=== PATIENT | female | born 1965 | race Caucasian/White ===

== ENCOUNTER 2019-04-12 10:11 | Day surgery (SDC) | payer MEDICAID, SELFPAY ==
[2019-04-11 10:18] VITALS: BMI 41.9
--- NOTE | 2019-04-12 11:04 | ANES.PREANES ---
Pre-Anesthetic Assessment Pre-Anesthetic Assessment: Height/Weight: Height 1.68 m Weight 117.934 kg Proposed Procedure: Operation Date: 04/12/19 11:50 Proposed Procedures p Breast Biopsy(Left) - Aram Montenegro MD Last intake: Intake Last Liquid Date 04/11/19 Last Liquid Time 22:45 Last Solid Date 04/11/19 Last Solid Time 22:45 Social: Social History: Tobacco (quit 25 year ago) and No alcohol Exam: Pre-Anes Outpt Exam: alert, oriented x 3, clear to auscultation bilaterally and regular rate & rhythm Airway: Submandibular: WNL Cervical ROM: WNL MP: 2 Additional comments: teeth ok Pulmonary: Pulmonary: None reported CV/HEM: CV/HEM: None reported : : None reported Hepatic: Hepatic: None reported GI: GI: GERD (controlled) Metabolic: Metabolic: Morbid obesity Musc/skel: Musc/skel: None reported Neuropsych: Neuropsych: Anxiety and Depression Anesthetic Plan: ASA status: II Anesthesia: Anesthesia Evaluation and MAC Risk of > 500 ml blood loss (7ml/kg in children): No PFSH Anesthesia PFSH: Medical History (Updated 04/12/19 @ 11:04 by Bhargav Ashton MD) Anxiety (Acute) Bronchitis (Acute) Depression (Acute) Gastroesophageal reflux (Acute) Family History Other Family history of CVA Family history of breast cancer Family history of cholelithiasis Social History Smoking and tobacco status: former smoker Quit status (tobacco): has quit using tobacco Substance/Drug Use: never Data Anesthesia Cardiac Studies: No Data to Display
[2019-04-12] MEDS: sodium chloride 0.9% 1,000 ML 30 ML IV (11:21)
[2019-04-12] MEDS: neomycin-poly-bacitracin oint 28 gm 1 APPLIC TOPICAL (11:45)
--- NOTE | 2019-04-12 11:46 | P.OP_ITS ---
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 Post-op diagnosis: same Procedure Done: Left breast incisional biopsy. Specimens removed/disposition: Left breast parenchyma with overlying skin. Surgeon: Aram Montenegro Anesthesia: MAC Estimated blood loss (mL): 5 Complications: None. Operative Report: Procedure: The patient was brought to the operating room and was placed in a supine position on the operating room table. A monitored anesthetic was induced. The left breast was prepped and draped in a sterile fashion. A transverse ellipse of skin with some overlying papules was then taken with a scalpel. Some of the underlying breast parenchyma was included. Cautery was used to maintain hemostasis. The wound was then irrigated. The skin was reapproximated using multiple interrupted simple sutures of 2-0 and 3-0 nylon. Some triple antibiotic ointment was placed over the wound and a sterile dressing followed. The patient was taken to the outpatient recovery area in stable condition postoperatively. Coding Level of Care Code Acute Desulphuring Operator for Boo Pritchett
[2019-04-12 11:54] VITALS: BP 147/80; PULSE 103; RESP 16; TEMP 36.5; O2SAT 94
[2019-04-12 12:22] VITALS: BP 149/86; PULSE 95; RESP 18; O2SAT 97
== END 2019-04-12 12:30 | disposition home or self-care (01) ==
PROVIDERS: Family Provider Family Medicine; Visit Provider Surgery
PROC: (CPT 19101; principal; 2019-04-12 11:40)
DX: C50.912 Malignant neoplasm of unspecified site of left female breast (principal); Z87.891 Personal history of nicotine dependence; F32.9 Major depressive disorder, single episode, unspecified; F41.9 Anxiety disorder, unspecified; K21.9 Gastro-esophageal reflux disease without esophagitis
CPT/HCPCS: 19101; 88305; 88361; 88374; 99221; J0690; J2001; J2704; J3010; J3490; J7030

== ENCOUNTER 2019-04-30 12:13 | Outpatient (CLI) | payer MEDICAID, SELFPAY ==
--- NOTE | 2019-05-02 16:02 | ONC CON_ITS ---
Dr. Grijalva New Patient Note Patient: Samir Gerard Unit #: [id number]: 1965 Dicatated By: Annie Grijalva M.D.Date of Visit: Apr 30, 2019 Onc MED New Patient/Consult Referring Physician: Dr. Aram Montenegro M.D. History of Present Illness: Ms. Samir Gerard, is a 53-year-old female with history of left breast mass underwent biopsy about 20 years ago and was negative, showed fibrous tissue only. Since then no more follow-up mammograms until about 2 months ago when she went to emergency room with left breast 'inflammation'and progressive swelling and left axillary lymphadenopathy at that time she was referred to oncology but did not follow through but continue to follow with primary care eventually on 04/10/2019 she was referred to surgery, Dr. Montenegro evaluated her and patient underwent left breast biopsy on 04/12/2019 which showed invasive carcinoma high-grade with dermal lymphatics involvement and perineural invasion identified also involvement of dermis e.g. diagnosed with inflammatory carcinoma of left breast HER-2/eduar 3+ positive, ER less than 1% VT less than 1% both were negative Ki-67 56 which is high..Complaining of clear fluid oozing from the left breast skin and nipple and left axillary fullness and portal left breast is swollen with overlying skin changes including under left axilla Family history significant for mother with breast cancer and maternal aunt with breast cancer patient started having. At age 10 and has no pregnancies. Denies any fever chills denies any nausea vomiting denies any headaches blurred vision double vision but chronic discomfort/pain in her left upper back and left axilla. And whole left breast is swollen with overlying skin changes with off-and-on serosanguineous discharge from the nipple and skin. Past Medical History: Ms. Gerard's medical history consists of anxiety, depression, and gastroesophageal reflux disease. Past Surgical History: Ms. Gerard's surgical/procedural history consists of left breast excisional biopsy in 2019 and left breast biopsy in 1999. Medications: Ibuprofen 2 - 3 Tablet (of 200 mg) Oral PRN, NexIUM 1 Capsule (of 20 mg) Capsule Delayed Release Oral daily Allergies: No Known Allergies. 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 Ms. Gerard has never smoked. She is a former drinker. Ms. Gerard reports the following support systems: lives alone, lives in own house, supportive family/friends willing to assist with needs, and adequate transportation available for expected visits. Her diet consists of regular meals. She indicates her activity level as: regular exercise. Family History: Ms. Gerard's mother at age 75: breast cancer. Ms. Gerard's father is alive: lung cancer. Review Of Symptoms: Constitutional - Appetite is fair and weight is decreasing. No fever, chills. Positive for hot flashes and night sweats. Energy level is fair, ENMT - No sinus congestion/drainage. No mouth sores. No sore throat. Occasional difficulty swallowing, Hematologic/Lymphatic - No abnormal bruising or bleeding, Respiratory - Positive for shortness of breath. No cough. No pleuritic pain or hemoptysis, Cardiovascular - No angina pain. No palpitations, Gastrointestinal - No nausea or vomiting. Positive for heartburn, no acid reflux. No diarrhea or constipation. No blood in the stool or black stools, Genitourinary (F) - No dysuria or hematuria. Positive for urinary frequency. No urgency or incontinence, Musculoskeletal - Positive for joint pain, Neurologic - No headache or dizziness. No numbness/paresthesias or other focal neurologic symptoms, Psychiatric - Positive for anxiety and depression. Vital Signs: Performed on Apr 30, 2019 13:32: 3, 44.73 (HIGH), 2.24 sq.m, 65.00 in, 97 %, 100 /min, 26 /min, 148/102 mm(hg) (HIGH), 98.1 F (LOW), and 268.8 lbs (HIGH). Performance Status: 0 - Fully active, able to carry on all predisease activities without restrictions. (ECOG) Physical Examination: ENMT - No oral exudates, ulcers, masses, thrush or mucositis. Oropharynx clear. Tongue normal, Respiratory - Lungs are clear to auscultation without rhonchi or wheezing, Cardiovascular - Regular rate and rhythm of heart, Breasts - Left breast, shows extensive overlying skin changes and nipple retraction and swelling consistent with locally advanced inflammatory breast cancer along with left axillary lymphadenopathy, Abdomen - Non-tender, non-distended, . Good bowel sounds. No guarding or rebound tenderness. No pulsatile masses, Extremities - no edema. Lab/Imaging: Most recent lab results are not available for this patient. 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 metastatic disease. At this point we'll consider CT PET scan to complete staging workup and as she has HER-2/eduar positive disease so we'll consider echocardiogram to assess cardiac status and also request Dr. Montenegro to place Port-A-Cath placement to facilitate chemotherapy. If CT PET scan shows localized disease then will consider dose dense Adriamycin Cytoxan followed by Herceptin/Taxol/perjeta , on the other hand if PET scan shows distance metastases then will consider systemic therapy with palliative intent. We will also check BRCA1 and 2 status. Patient return to clinic after CT PET scan with CBC CMP and for further discussion. Signed By: Annie Grijalva M.D. <<Signature on File>>
== END 2019-04-30 12:14 | disposition home or self-care (01) ==
LOC: ONCMED 12:16
PROVIDERS: Family Provider Family Medicine; Referring Provider Surgery; Visit Provider Internal Medicine Hematology & Oncology
DX: C50.812 Malignant neoplasm of overlapping sites of left female breast (principal); F41.8 Other specified anxiety disorders; K21.9 Gastro-esophageal reflux disease without esophagitis; F10.21 Alcohol dependence, in remission; R59.0 Localized enlarged lymph nodes; M54.6 Pain in thoracic spine; Z17.1 Estrogen receptor negative status [ER-]; Z80.3 Family history of malignant neoplasm of breast
CPT/HCPCS: 99205

== ENCOUNTER 2019-05-01 07:28 | Outpatient (CLI) | payer MEDICAID, SELFPAY ==
[2019-05-01 07:54] LABS: Miscellaneous Test See Scanned Lab Rpt
[2019-05-01 08:10] LABS: Basophils % 0.3 %; Eosinophils # 0.1 10^3/uL (0.0-0.8); Eosinophils % 1.1 %; Hematocrit 36.1 % (37.0-47.0); Hemoglobin 11.5 g/dL (11.5-15.3); Lymphocytes % 22.2 %; Mean Corpuscular HGB Conc 31.9 g/dL (30.0-36.0); Mean Corpuscular Hemoglobin 30.3 pg (28.0-34.0); Mean Corpuscular Volume 95.3 fL (81-99); Mean Platelet Volume 9.7 fL (7.4-10.4); Monocytes # 0.9 10^3/uL (0.2-0.9); Monocytes % 9.3 %; Neutrophils # 6.1 10^3/uL (1.8-7.7); Neutrophils % 66.8 %; Nucleated Red Blood Cells % 0 %; Platelet Count 370 10^3/cmm (130-400); Red Blood Count 3.79 10^6/uL (4.1-5.3); Red Cell Distribution Width 13.9 % (12.1-15.1); White Blood Count 9.2 10^3/uL (4.0-10.0)
[2019-05-01 08:23] LABS: Alanine Aminotransferase 29 U/L (0-33); Albumin Level 3.7 g/dL (3.5-5.2); Alkaline Phosphatase 78 IU/L (35-105); Anion Gap 13.4 (5-19); Aspartate Amino Transferase 38 U/L (0-32); Blood Urea Nitrogen 7 mg/dL (6-20); Calcium 9.1 mg/Dl (8.6-10.0); Carbon Dioxide 30 mmol/L (22-29); Chloride 98 mmol/L (98-107); Globulin 3.7 g/dL (1.3-4.6); Glomerular Filtration Rate 57.8 mL/min (90-130); Glucose 111 mg/dL (74-109); Potassium 3.4 mmol/L (3.5-5.1); Sodium 138 mmol/L (136-145); Total Bilirubin 0.3 mg/dL (0.15-1.2); Total Protein 7.4 g/dL (6.6-8.7)
== END 2019-05-01 07:29 | disposition home or self-care (01) ==
LOC: ONCMED 07:34
PROVIDERS: Family Provider Family Medicine; Visit Provider Internal Medicine Hematology & Oncology
DX: C50.812 Malignant neoplasm of overlapping sites of left female breast (principal)
CPT/HCPCS: 36415; 80053; 85025

== ENCOUNTER 2019-05-09 10:12 | Outpatient (CLI) | payer MEDICAID, SELFPAY ==
--- NOTE | 2019-05-09 11:00 | USCV_ITS ---
LisaandreaSamir Age: 53 Gender: F : 1965 Exam Date: 05/09/2019 10:37 Ordering Phys: Annie Grijalva MD Technologist: Madhavi Olguin Exam Location: [facility] – [place] Indication: SOB, BASELINE FOR CA TREATMENT BP: / HR: 78 Rhythm: Sinus Technical Quality: NO WINDOWS FOR EVAL MEASUREMENTS (Male / Female) Normal Values 2D ECHO LVOT Diameter 2.0 cm DOPPLER PV Peak Velocity 73.0 cm/s RV Acceleration Time 0.1 s RV Ejection Time 0.3 s RV AcT/ET 0.3 FINDINGS Left Ventricle Right Ventricle Right Atrium Left Atrium Mitral Valve Aortic Valve Tricuspid Valve Pulmonic Valve Pericardium Aorta CONCLUSIONS Please note that this is a suboptimal quality study which is limited #1 Perhaps normal left ventricle size and ejection fraction. Cannot comment on wall motion abnormality. Left ventricle ejection fraction possible 50-55%. #2 No pericardial effusion #3 Cannot compare it with prior exam. Kendall Ferreiar MD (Electronically Signed) Final Date: 09 May 2019 17:40 S
== END 2019-05-09 10:13 | disposition home or self-care (01) ==
LOC: US 10:15
PROVIDERS: Family Provider Nurse Practitioner Family; Visit Provider Internal Medicine Hematology & Oncology
DX: R06.02 Shortness of breath (principal); C50.912 Malignant neoplasm of unspecified site of left female breast
CPT/HCPCS: 93308

== ENCOUNTER 2019-05-16 06:00 | Outpatient (CLI) | payer SELFPAY | END 2019-05-16 06:01 | disposition home or self-care (01) | LOC: ONCMED 15:59 | PROVIDERS: Family Provider Nurse Practitioner Family; Visit Provider Internal Medicine Hematology & Oncology | DX: C50.812 Malignant neoplasm of overlapping sites of left female breast (principal); C77.8 Secondary and unspecified malignant neoplasm of lymph nodes of multiple regions; G89.3 Neoplasm related pain (acute) (chronic); Z17.1 Estrogen receptor negative status [ER-]; Z80.3 Family history of malignant neoplasm of breast | CPT/HCPCS: G0463 ==

== ENCOUNTER 2019-05-29 11:16 | Day surgery (SDC) | payer MEDICAID, SELFPAY ==
[2019-05-25 08:14] VITALS: BMI 44.1
--- NOTE | 2019-05-25 08:31 | ANES.PREANE2 ---
Pre-Anesthetic Assessment Pre-Anesthetic Assessment: Height/Weight: Height 1.65 m Weight 120.202 kg Preop Diagnosis: Left breast inflammatory cancer Proposed Procedure: Operation Date: 05/29/19 13:15 Proposed Procedures p Portacath Placement 82531 C50.912(Not Applicable) - Doug Roberson MD Social: Social History: No alcohol and No tobacco Exam: Pre-Anes Outpt Exam: alert, oriented x 3, clear to auscultation bilaterally and regular rate & rhythm Airway: Submandibular: WNL Cervical ROM: WNL MP: 2 History/ROS: No significant history except as noted Pulmonary: Pulmonary: None reported CV/HEM: CV/HEM: None reported : : None reported Hepatic: Hepatic: None reported GI: GI: GERD (occ) Metabolic: Metabolic: Morbid obesity Musc/skel: Musc/skel: None reported Neuropsych: Neuropsych: Anxiety and Depression Anesthetic Plan: ASA status: 3 Anesthesia: Anesthesia Evaluation and MAC Risk of > 500 ml blood loss (7ml/kg in children): No PFSH Anesthesia PFSH: Medical History Anxiety Breast cancer, left breast Bronchitis Depression Gastroesophageal reflux Surgical History History of breast biopsy (~03/2019) Family History Other Family history of CVA Family history of breast cancer Family history of cholelithiasis Social History Smoking and tobacco status: former smoker Quit status (tobacco): has quit using tobacco Second hand smoke exposure: No Alcohol intake: never Adopted: No Caregiver/support person: No Lives independently: No Household members: none Housing: House Marital status: Single service: No Current occupational status: employed Current occupational exposures/hazards: No Pets and animals: No History of recent travel: No Current gender identity: Female Melissa/Nondenominational: [employer] Special melissa needs: No Agree to transfusion: No Financial difficulty paying for basics: Decline to Answer Data Anesthesia Cardiac Studies: No Data to Display
--- NOTE | 2019-05-29 | SCC_ITS ---
Procedure Done: Right IJ Port-A-Cath placement PowerPort 10.0 seconds of fluoroscopic guidance, for a cumulative dose of 2.46 mGy, was provided to Dr. Roberson by the radiology department. C-arm images of the chest were saved for the patient's permanent record. [facility]
--- NOTE | 2019-05-29 11:22 | SC_ITS ---
WS: [id number] C-arm FL for CVA [id number] REASON FOR EXAM: Port-A-Cath placement FINDINGS: Port-A-Cath placement on the right side the tip is seen below the atrium in the inferior ve na cava. There is no pneumothorax seen. SC/C-arm FL for CVA [id number] IMPRESSION: Port-A-Cath insertion the tip is low in the upper inferior vena cava. Fluoroscopic time 10 seconds.
[2019-05-29 11:32] VITALS: BP 164/94; PULSE 94; RESP 16; TEMP 36.4; O2SAT 98
[2019-05-29] MEDS: sodium chloride 0.9% 1,000 ML 30 ML IV (11:47)
--- NOTE | 2019-05-29 13:24 | W.PM.OPSUD ---
Surgery/Procedure H&P Update DATE OF PROCEDURE: May 29, 2019 DATE H&P PERFORMED: 05/24/19 H&P UPDATE INFORMATION: H&P completed within last 30 days and No changes to prior documentation PREOP DIAGNOSIS: Left breast inflammatory cancer PRIMARY INDICATION FOR PROCEDURE: The same PLANNED PROCEDURE: Operation Date: 05/29/19 12:45 Proposed Procedures p Portacath Placement 24648 C50.912(Not Applicable) - Doug Roberson MD
[2019-05-29] MEDS: lidocaine 2% INJ 20 mL INJECTION (14:33)
[2019-05-29] MEDS: heparin, porcine 1,000 unit/mL INJ 10 mL 10000 UNIT INJECTION (14:33)
--- NOTE | 2019-05-29 15:10 | PM.OP ---
Operative Report Date of procedure: May 29, 2019 Pre-op Diagnosis: Left breast inflammatory cancer requiring long-term IV access Post-op diagnosis: same Procedure Done: Right IJ Port-A-Cath placement PowerPort Implants: PowerPort right IJ placement Surgeon: Doug Roberson Preparatory Technician: technical lead Danny Circulating nurses Dorothy and Gabriela Anesthesia: MAC (Oscar Nunes) Estimated blood loss (mL): 10 Condition: stable Disposition: same day Brief History: This is a pleasant 53 years old female patient recently diagnosed with inflammatory breast cancer , requiring long-term IV access in the form of Port-A-Cath Plan of care; After thorough history physical examination and reviewing the chart, I counseled the patient for Port-A-Cath placement, indications, risks including pneumothorax and injury of major vascular structures, benefits, and alternatives were all discussed with the patient, patient understands and is interested to proceed. Informed consent per chart Assurance and education All questions have been answered Procedure: After thorough history physical examination and reviewing the chart, I counseled the patient for Port-A-Cath placement, indications, risks including pneumothorax and injury of major vascular structures, benefits, and alternatives were all discussed with the patient, patient understands and is interested to proceed. Informed consent per chart Assurance and education All questions have been answered Procedure: Patient was identified in the holding area and taken to the operative room and placed in supine position IV propofol was given by the anesthesia provider ,both arms were tucked,Time-out was done verifying the patient's name/date of /planned procedure and destination after the procedure, all were in agreement. SCDs confirmed to be functioning, preoperative antibiotics administered per protocol, and beta kennedi protocol was confirmed, appropriate positioning of the patient was done by me. Medications were reviewed to assess for anticoagulant usage. Risks and benefits and prevention of central line associated blood stream infection (CLABSI) were discussed with the patient/CPOA, and a consent was obtained. Monitors were in place and monitored throughout the procedure. All necessary supplies were available prior to start. Hand hygiene was completed prior to starting. Maximum barrier technique was utilized including a sterile gown, sterile gloves with a hat and mask. Site was was prepped with [chlorhexidine] and a full body drape was placed. 5 mL of 2% lidocaine was injected into the skin with a 25 gauge needle. Prep& drape was done under the usual sterile technique, lidocaine 2% was injected at the site of the stick, started by right internal jugular vein stick that retrieved venous blood was obtained from the first stick under ultrasound guidance and there was no evidence of intraluminal thrombosis, a guidewire was then threaded and under the guidance of fluoroscopy position was confirmed to be in the IVC and my interpretation, there was no PVC changes, at that point the guidewire was secured to the drapes with a hemostat and the needle was taken out, attention was then deviated towards creation of a pocket for the port were lidocaine 2% was injected using an 15 blade knife skin incision was created dissection using the Bovie to create a pocket for the Port-A-Cath to be accommodated, hemostasis was secured, after the port being appropriately flushed it was inserted into the pocket and a tunneler was used to accommodate the catheter of the port cath to be delivered through the incision first created at the site of the stick, yet additional incision had to be created as a stepladder technique to allow the catheter to be threaded and then the tunneler would pass again at the index incision as the stick site, at that point under fluoroscopy an estimated length was measured for the catheter and was cut at the designed level, followed by that a dilator with the sheath introduced onto the guidewire the dilator and the wire were retrieved and the catheter of the port was introduced via the sheath where it was peeled off and the catheter maintained to be in the SVC that was confirmed with fluoroscopy, and the fluoroscopy interpretation was done by me throughout the entire procedure. The port was secured to the fascia with using Prolene sutures, 4-0 Vicryl deep subdermal interrupted sutures, skin was then closed by 4-0 Monocryl as subcuticular closure. The stick site was closed by 4-0 Monocryl and Dermabond was used followed by dressing. Patient tolerated the procedure well was taken to the recovery area Count was correct at the end of the procedure I was present for the whole entire procedure Position of the catheter was checked with a postoperative chest x-ray and it was in good position without evidence of pneumothorax
--- NOTE | 2019-05-29 15:12 | XR_ITS ---
WS: [id number] XR chest 1V portable [id number] REASON FOR EXAM: Status post Port-A-Cath via right IJ vein FINDINGS: Port-A-Cath extends from the right side the tip is in the mid superior vena cava the positi oning is satisfactory. There is eventration of the right hemidiaphragm. The lung mcghee are clear there is no pneumonia. The hilum and apices normal. XR/XR chest 1V portable [id number] IMPRESSION: Port-A-Cath on the right in good position in the mid superior vena cava.
[2019-05-29 15:14] VITALS: BP 131/86; PULSE 96; RESP 16; TEMP 36.4; O2SAT 95
[2019-05-29 16:05] VITALS: BP 138/95; PULSE 90; RESP 18; TEMP 36.4; O2SAT 96
== END 2019-05-29 16:08 | disposition home or self-care (01) ==
PROVIDERS: Family Provider Nurse Practitioner Family; PCP Nurse Practitioner Family; Visit Provider Surgery
PROC: (CPT 36561; principal; 2019-05-29 12:45)
DX: Z45.2 Encounter for adjustment and management of vascular access device (principal); K21.9 Gastro-esophageal reflux disease without esophagitis; E66.01 Morbid (severe) obesity due to excess calories; Z68.41 Body mass index [BMI] 40.0-44.9, adult; Z85.3 Personal history of malignant neoplasm of breast; Z87.891 Personal history of nicotine dependence
CPT/HCPCS: 36561; 12345; 71045; 76000; 77001; C1788; J0690; J1644; J2001; J2250; J2704; J3010; J7030

== ENCOUNTER 2019-06-08 05:40 | Outpatient (RCR) | payer MEDICAID, SELFPAY ==
[2019-05-30 13:51] LABS: Basophils % 0.4 %; Eosinophils % 0.2 %; Hematocrit 39.1 % (37.0-47.0); Hemoglobin 12.2 g/dL (11.5-15.3); Lymphocytes # 1.7 10^3/uL (0.8-4.8); Lymphocytes % 20.8 %; Mean Corpuscular HGB Conc 31.2 g/dL (30.0-36.0); Mean Corpuscular Hemoglobin 29.4 pg (28.0-34.0); Mean Corpuscular Volume 94.2 fL (81-99); Mean Platelet Volume 9.8 fL (7.4-10.4); Monocytes # 0.7 10^3/uL (0.2-0.9); Monocytes % 8.9 %; Neutrophils # 5.8 10^3/uL (1.8-7.7); Neutrophils % 69.3 %; Nucleated Red Blood Cells % 0 %; Platelet Count 441 10^3/cmm (130-400); Red Blood Count 4.15 10^6/uL (4.1-5.3); Red Cell Distribution Width 13.2 % (12.1-15.1); White Blood Count 8.4 10^3/uL (4.0-10.0)
[2019-05-30 14:07] LABS: Alanine Aminotransferase 25 U/L (0-33); Albumin Level 3.6 g/dL (3.5-5.2); Alkaline Phosphatase 76 IU/L (35-105); Anion Gap 15.8 (5-19); Aspartate Amino Transferase 35 U/L (0-32); Blood Urea Nitrogen 6 mg/dL (6-20); Calcium 9.2 mg/dL (8.5-10.5); Carbon Dioxide 29 mmol/L (22-29); Chloride 104 mmol/L (98-107); Globulin 4.2 g/dL (1.3-4.6); Glomerular Filtration Rate 51.8 mL/min (90-130); Glucose 112 mg/dL (65-115); Potassium 3.8 mmol/L (3.5-5.1); Sodium 145 mmol/L (136-145); Total Bilirubin 0.2 mg/dL (0.15-1.2); Total Protein 7.8 g/dL (6.6-8.7)
[2019-05-31] MEDS: acetaminophen 325 mg Tablet 650 MG PO (09:14)
[2019-05-31] MEDS: sodium chloride 0.9% 250 ML 75 ML IV (09:14)
[2019-06-07] MEDS: diphenoxylate/atropine Tablet 1 TAB PO (09:30)
[2019-06-07 09:57] LABS: Basophils % 1.8 %; Eosinophils % 2.7 %; Hematocrit 34.7 % (37.0-47.0); Hemoglobin 11.3 g/dL (11.5-15.3); Lymphocytes # 0.6 10^3/uL (0.8-4.8); Lymphocytes % 54.5 %; Mean Corpuscular HGB Conc 32.6 g/dL (30.0-36.0); Mean Corpuscular Hemoglobin 29.6 pg (28.0-34.0); Mean Corpuscular Volume 90.8 fL (81-99); Mean Platelet Volume 10.5 fL (7.4-10.4); Monocytes # 0.1 10^3/uL (0.2-0.9); Monocytes % 10.9 %; Neutrophils % 30.1 %; Nucleated Red Blood Cells % 0 %; Platelet Count 323 10^3/cmm (130-400); Red Blood Count 3.82 10^6/uL (4.1-5.3); Red Cell Distribution Width 12.8 % (12.1-15.1); White Blood Count 1.1 10^3/uL (4.0-10.0)
[2019-06-07 10:12] LABS: Alanine Aminotransferase 103 U/L (0-33); Albumin Level 3.2 g/dL (3.5-5.2); Alkaline Phosphatase 61 IU/L (35-105); Anion Gap 15.4 (5-19); Aspartate Amino Transferase 69 U/L (0-32); Blood Urea Nitrogen 7 mg/dL (6-20); Calcium 9.3 mg/dL (8.5-10.5); Carbon Dioxide 30 mmol/L (22-29); Chloride 100 mmol/L (98-107); Globulin 3.6 g/dL (1.3-4.6); Glomerular Filtration Rate 74.7 mL/min (90-130); Glucose 121 mg/dL (65-115); Potassium 3.4 mmol/L (3.5-5.1); Sodium 142 mmol/L (136-145); Total Bilirubin 0.8 mg/dL (0.15-1.2); Total Protein 6.8 g/dL (6.6-8.7)
[2019-06-07] MEDS: fluconazole premix 200 MG/100 ML PREMIX 100 MG IV (10:12)
[2019-06-07 10:13] LABS: Neutrophils # 0.3 10^3/uL (1.8-7.7)
[2019-06-07] MEDS: sodium chloride 0.9% 1,000 ML 999 ML IV (11:13)
[2019-06-09 07:11] VITALS: BP 145/98; PULSE 106; RESP 16; TEMP 37.3; O2SAT 94
--- NOTE | 2019-06-11 22:14 | ONC FU_ITS ---
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 Gerard is a 53-year-old female with history of left breast mass. She underwent biopsy about 20 years ago and it was negative, showed fibrous tissue only. Since then, she had no more follow-up mammograms until about 2 months ago when she went to emergency room with left breast 'inflammation'and progressive swelling and left axillary lymphadenopathy. A,t that time she was referred to oncology but did not follow through, but continue to follow with primary care. Eventually on 04/10/2019 she was referred to surgery. Dr. Montenegro evaluated her and she underwent left breast biopsy on 04/12/2019.v The biopsy reported invasive carcinoma, high-grade with dermal lymphatics involvement and perineural invasion. Identified also involvement of dermis e.g. 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 She presented with complaints of clear fluid oozing from the left breast skin and nipple as well as left axillary fullness. The left breast was swollen with overlying skin changes including under left axilla. Family history significant for mother with breast cancer and maternal aunt with breast cancer. She began menses patient at age 10 and has had no pregnancies. Ms Gerard has chronic discomfort/pain in her left upper back and left axilla. And whole left breast was swollen with overlying skin changes with off-and-on serosanguineous discharge from the nipple and skin. follow-up CT PET scan done on 05/05/2019 Showed 2 sites of FDG positive nodular dermal thickening in the left breast. Dominant lesion measures 2.2 x 3.4 cm with SUV of 14.7. And second lower inner quadrant lesion measured 1.4 cm with SUV of 9.7. Left axillary lymph nodes enlarged and FDG positive with index node measured 2.4 cm with SUV of 6.2. Additionally there are smaller but FDG positive lymph nodes. A left level IV cervical node measuring 1 cm has SUV of 4.8 indicating distant metastatic disease. Right axillary lymph node FDG positive, consistent with metastatic disease. Dr Grijalva discussed with Ms Gerard the CT PET scan findings, which showed metastatic disease to the bilateral axilla and level IVFDG positive left cervical lymph node. No other distant metastatic disease seen. Her echocardiogram shows ejection fraction 50-55%. Dr Grijalva recommended treatment with systemic therapy with pertuzumab/Herceptin/Taxotere every 3 weeks ???4-6 cycles and then evaluate with follow-up CT PET scan if it shows good response then consider surgical evaluation and radiation evaluation. Echocardiogram done on 05/09/2019 showed ejection fraction 50-55%. Ms Gerard began her first cycle of chemotherapy on 05/31/2019. She is here today for follow-up. This is day 8. She states overall she thinks the breast drainage and firmness has improved. She states that she has had 3 episodes of vomiting but has had persistent diarrhea for several days. She states it is hard to eat because things taste really funny and bad . Her mouth is been somewhat tender. She denies any fever or chills. She states that she is just worn out. She denies any urinary symptoms. She denies any neuropathy symptoms currently. She states she did take 1 or 2 of the nausea meds to help with the vomiting and that has subsided currently. The diarrhea has slowed down but is not subsided completely. She indicates that she has been taking some Imodium but she could probably take more. She does not have Lomotil available at this time. Her ECOG today is 2. Past Medical History: Anxiety Depression Gastroesophageal reflux disease Past Surgical History: Right Internal Juglar Port A Cath-[place] Roberson [place] [place] Left breast excisional biopsy in 2019 Left breast biopsy in 1999 Allergies: No Known Allergies. Medications: Anti-Diarrheal 1 (2 mg) Tablet Oral daily PRN Ibuprofen 2 - 3 Tablet (of 200 mg) Oral PRN NexIUM 1 Capsule (of 20 mg) Capsule Delayed Release Oral daily traMADol HCl 1 (50 mg) Tablet Oral t.i.d. PRN Family History: Ms. Gerard's mother at age 75: breast cancer. Ms. Gerard's father is alive: lung cancer. 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 Ms. Gerard has never smoked. She is a former drinker. Ms. Gerard reports the following support systems: lives alone, lives in own house, supportive family/friends willing to assist with needs, and adequate transportation available for expected visits. Her diet consists of regular meals. She indicates her activity level as: regular exercise. Review Of Symptoms: Constitutional Denies fevers, chills, night sweats. She reports increased fatigue and weight loss. Allergic/Immunologic No reactions. Eyes Denies significant visual changes. No diplopia. No amaurosis. ENMT Denies changes in hearing, sore throat, mouth sores, difficulty or changes in swallowing ability, and/or sinus drainage. Mouth is tender and things taste bad . Hematologic/Lymphatic Denies easy bruising or bleeding. The patient denies any tender or palpable lymph nodes. Breasts Respiratory Denies dyspnea on exertion, chest pain, cough or hemoptysis. Denies orthopnea. Cardiovascular Denies anginal chest pain, palpitations or orthopnea. Gastrointestinal Has had nausea/vomiting at least 3 times since chemo. Lorazepam does seem to help some, Persistent diarrhea, she has taken some Imodium but does not think it helped alot. Genitourinary (F) No hematuria, hesitancy, incontinence, vaginal bleeding, discharge or other problems with urination. Musculoskeletal Denies joint pain, swelling or redness. No decreased range of motion. Integumentary Denies chronic rashes, inflammation, ulcerations or skin changes. Neurologic Denies headache, blurred vision, and no areas of focal weakness or numbness. Normal gait. No sensory problems. Psychiatric Denies insomnia, depression, aba or mood swings. Vital Signs: Performed on Jun 07, 2019 08:34 Height - 65.00 in Weight - 249.5 lbs (LOW) BSA - 2.17 sq.m BMI - 41.52 (HIGH) Temperature - 98.9 F (HIGH) Pulse - 97 /min Respiration - 14 /min BP - 141/71 mm(hg) (HIGH) O2 Sat - 97 % Pain - 1 Fatigue - 8,2 - Ambulatory/capable of all self-care, unable to perform any work activities. Up and about more than 50% of waking hours. (ECOG) Physical Examination: Constitutional Alert, oriented, no acute distress. Skin pink, warm and dry. Head Normocephalic; atraumatic. Eyes Conjunctivae and sclerae are clear and without icterus. Pupils are reactive and equal. ENMT No oral exudates, ulcers, masses, thrush or mucositis. Oropharynx clear. Tongue normal. Neck Supple without masses or thyromegaly. No jugular venous distension. Hematologic/Lymphatic No petechiae or purpura. No tender or palpable lymph nodes in the cervical or supraclavicular areas. Respiratory Lungs are clear to auscultation without rhonchi or wheezing. Cardiovascular Regular rate and rhythm of heart without murmurs,clicks, gallops or rubs. Chest Chest is symmetric without chest wall deformities. Right internal jugular port a cath insertion site is unremarkable. Breasts Abdomen Non-tender, non-distended, no masses or ascites. Good bowel sounds noted in all quads. No guarding or rebound tenderness. No pulsatile masses. Back/Spine Non-tender to palpation. Extremities No visible deformities, no cyanosis, clubbing or edema. Musculoskeletal No tenderness or swelling, normal range of motion without obvious weakness. Integumentary No rashes or lesions. Neurologic No sensory or motor deficits, normal cerebellar function, normal gait. Psychiatric Alert and oriented times three. Coherent speech. Verbalizes understanding of our discussions today. Laboratory:Test performed on Jun 07, 2019 09:30 Sodium 142 mmol/L Potassium 3.4 mmol/L Chloride 100 mmol/L CO2 30 mmol/L Anion Gap 15.4 BUN 7 mg/dL Creatinine 0.8 mg/dL Cr Clearance (Est) 155.2000 mL/min eGFR 74.7 mL/min Glucose 121 mg/dL Calcium 9.3 mg/dL Protein, Total 6.8 g/dL Albumin 3.2 g/dL Globulin 3.6 g/dL Bilirubin, Total 0.8 mg/dL ALT (SGPT) 103 U/L AST (SGOT) 69 U/L Alkaline Phosphatase 61 IU/L WBC 1.1 10 3/uL RBC 3.82 10 6/uL HGB 11.3 g/dL HCT 34.7 % MCV 90.8 fL MCH 29.6 pg MCHC 32.6 g/dL RDW 12.8 % Platelet Count 323 10 3/cmm MPV 10.5 fL Neutrophils 0.3 10 3/uL Lymphocytes 0.6 10 3/uL Monocytes 0.1 10 3/uL Eosinophils 0.0 10 3/uL Basophils 0.0 10 3/uL Neutrophil % 30.1 % Lymphocyte % 54.5 % Monocyte % 10.9 % Eosinophil % 2.7 % Basophils % 1.8 % Impression: metastatic left breast cancer, with a left FDG positive axillary lymphadenopathy,and FDG positive right axillary lymphadenopathy, and left cervical level IV FDG positive lymph node per CT PET scan done on 05/05/2019 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 She has had port placement r(right internal jugular). Dr Grijalva discussed with Ms Gerard the CT PET scan findings, which showed metastatic disease to the bilateral axilla and level IVFDG positive left cervical lymph node. No other distant metastatic disease seen. Her echocardiogram shows ejection fraction 50-55%. Dr Grijalva recommended treatment with systemic therapy with pertuzumab/Herceptin/Taxotere every 3 weeks ???4-6 cycles and then evaluate with follow-up CT PET scan if it shows good response then consider surgical evaluation and radiation evaluation. Ms Gerard began her first cycle of chemotherapy on 05/31/2019. She did not receive Neulasta. Cycle 1 has been complicated thus far with persistent diarrhea and intermittent vomiting. Plan: 1. Hydration and antiemetics today for persistent diarrhea and nausea today. 2. Will also send a script for Lomotil to her pharmacy to attempt to control her diarrhea better. Her diarrhea is due to the Perjeta/Herceptin. 3. Will add Zofran ODT 8 mg to antiemetic regimen at home. 4. Will plan to add Emend for chemoinduced nausea/vomiting with cycle 2. 5. For mucositis: Magic Mouthwash and oral Diflucan 100 mg po daily x 7 days. 6. Today's labs were reviewed in detail and discussed with Sent and a copy was given to her. WBC 1.1, hemoglobin 11.3, platelets 323,000 ANC is 300 potassium 3.4 ALT and AST are both elevated ALT is 103, AST is 69 alk phos is normal and total bilirubin is normal. She has documented weight loss today-her weight was documented to 69.6 on May 16, 2019 and is 249.5 today. 7. I have requested a prior authorization for Neupogen 480 mcg daily for 4 days for chemo induced neutropenia. 8. She will be placed on prophylactic antibiotics due to the ANC of 300. Levofloxacin 500 mg was sent to her pharmacy. She was advised neutropenic precautions and instructed to call if she has any signs or symptoms of infection. 9. We will plan to have her return back in 1 week with CBC, CMP and follow-up. 10. She may have supportive care as needed in the interim. 11. Ms. Gerard was instructed to contact us in the interim should questions or problems arise or if her nausea vomiting or diarrhea returns or worsens. Signed By: Barney Arias-, AOCNP Annie Grijalva MD <<Signature on File>>
== END 2019-06-09 23:59 | disposition home or self-care (01) ==
LOC: ONCMED 05:40
PROVIDERS: Nurse Practitioner; Family Provider Nurse Practitioner Family; PCP Nurse Practitioner Family; Visit Provider Internal Medicine Hematology & Oncology
DX: Z51.12 Encounter for antineoplastic immunotherapy (principal); Z51.11 Encounter for antineoplastic chemotherapy; C50.812 Malignant neoplasm of overlapping sites of left female breast; C77.8 Secondary and unspecified malignant neoplasm of lymph nodes of multiple regions; D70.1 Agranulocytosis secondary to cancer chemotherapy; K12.31 Oral mucositis (ulcerative) due to antineoplastic therapy; K52.1 Toxic gastroenteritis and colitis; R11.0 Nausea; T45.1X5A Adverse effect of antineoplastic and immunosuppressive drugs, initial encounter; Z17.1 Estrogen receptor negative status [ER-]; F41.8 Other specified anxiety disorders; Z79.899 Other long term (current) drug therapy; Z80.3 Family history of malignant neoplasm of breast; Z80.1 Family history of malignant neoplasm of trachea, bronchus and lung
CPT/HCPCS: 80053; 85025; 96361; 96365; 96367; 96372; 96413; 96415; 96417; 99211; 99214; J1100; J1200; J1442; J1450; J2405; J2469; J3490; J7030; J7050; J9171; J9306; J9355

== ENCOUNTER 2019-07-05 05:50 | Outpatient (RCR) | payer MEDICAID, SELFPAY ==
[2019-06-10 07:00] VITALS: BMI 41.4
[2019-06-10 07:08] VITALS: BP 141/89; PULSE 94; RESP 18; TEMP 36.6; O2SAT 94
[2019-06-11 09:17] LABS: Basophils % 0.1 %; Eosinophils % 0.1 %; Hematocrit 37.6 % (37.0-47.0); Hemoglobin 12.2 g/dL (11.5-15.3); Lymphocytes # 2.7 10^3/uL (0.8-4.8); Lymphocytes % 10.3 %; Mean Corpuscular HGB Conc 32.4 g/dL (30.0-36.0); Mean Corpuscular Hemoglobin 29.3 pg (28.0-34.0); Mean Corpuscular Volume 90.4 fL (81-99); Monocytes # 2.7 10^3/uL (0.2-0.9); Monocytes % 10.2 %; Neutrophils # 18.3 10^3/uL (1.8-7.7); Neutrophils % 69.3 %; Nucleated Red Blood Cells # 0.2 /100WBC; Nucleated Red Blood Cells % 0.6 %; Platelet Count 330 10^3/cmm (130-400); Red Blood Count 4.16 10^6/uL (4.1-5.3); Red Cell Distribution Width 13.5 % (12.1-15.1); White Blood Count 26.4 10^3/uL (4.0-10.0)
[2019-06-11 09:38] LABS: Alanine Aminotransferase 56 U/L (0-33); Albumin Level 3.5 g/dL (3.5-5.2); Alkaline Phosphatase 114 IU/L (35-105); Anion Gap 17.9 (5-19); Aspartate Amino Transferase 47 U/L (0-32); Blood Urea Nitrogen 6 mg/dL (6-20); Calcium 9.4 mg/dL (8.5-10.5); Carbon Dioxide 27 mmol/L (22-29); Chloride 96 mmol/L (98-107); Globulin 3.7 g/dL (1.3-4.6); Glomerular Filtration Rate 42.7 mL/min (90-130); Glucose 104 mg/dL (65-115); Magnesium 1.6 mg/dL (1.7-2.3); Sodium 138 mmol/L (136-145); Total Bilirubin 0.4 mg/dL (0.15-1.2); Total Protein 7.2 g/dL (6.6-8.7)
[2019-06-11 09:58] LABS: Potassium 2.9 mmol/L (3.5-5.1)
[2019-06-11 10:12] LABS: Slide Review Slide Review Perform
[2019-06-11 10:14] LABS: Absolute Segmented Neutrophil 8.4 10/cmm (1.6-7.1); Band Neutrophils Absolute 13.2 10^3/cmm (0.0-1.2); Lymphocytes 7 %; Monocytes Absolute 2.4 10^3/cmm (0.1-0.6); Platelet Estimate Normal (Normal); Segmented Neutrophils 32 %; Total Cells Counted 100 (0-100)
[2019-06-12 10:26] LABS: CA 27.29 29 U/mL (<38)
--- NOTE | 2019-06-18 09:40 | ONC FU_ITS ---
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 Gerard is a 53-year-old female with history of left breast mass. She underwent biopsy about 20 years ago and it was negative, showed fibrous tissue only. Since then, she had no more follow-up mammograms until about 2 months ago when she went to emergency room with left breast 'inflammation'and progressive swelling and left axillary lymphadenopathy. A,t that time she was referred to oncology but did not follow through, but continue to follow with primary care. Eventually on 04/10/2019 she was referred to surgery. Dr. Montenegro evaluated her and she underwent left breast biopsy on 04/12/2019.v The biopsy reported invasive carcinoma, high-grade with dermal lymphatics involvement and perineural invasion. Identified also involvement of dermis e.g. 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 She presented with complaints of clear fluid oozing from the left breast skin and nipple as well as left axillary fullness. The left breast was swollen with overlying skin changes including under left axilla. Family history significant for mother with breast cancer and maternal aunt with breast cancer. She began menses patient at age 10 and has had no pregnancies. Ms Gerard has chronic discomfort/pain in her left upper back and left axilla. And whole left breast was swollen with overlying skin changes with off-and-on serosanguineous discharge from the nipple and skin. follow-up CT PET scan done on 05/05/2019 Showed 2 sites of FDG positive nodular dermal thickening in the left breast. Dominant lesion measures 2.2 x 3.4 cm with SUV of 14.7. And second lower inner quadrant lesion measured 1.4 cm with SUV of 9.7. Left axillary lymph nodes enlarged and FDG positive with index node measured 2.4 cm with SUV of 6.2. Additionally there are smaller but FDG positive lymph nodes. A left level IV cervical node measuring 1 cm has SUV of 4.8 indicating distant metastatic disease. Right axillary lymph node FDG positive, consistent with metastatic disease. Dr Grijalva discussed with Ms Gerard the CT PET scan findings, which showed metastatic disease to the bilateral axilla and level IVFDG positive left cervical lymph node. No other distant metastatic disease seen. Her echocardiogram shows ejection fraction 50-55%. Dr Grijalva recommended treatment with systemic therapy with pertuzumab/Herceptin/Taxotere every 3 weeks ???4-6 cycles and then evaluate with follow-up CT PET scan if it shows good response then consider surgical evaluation and radiation evaluation. Echocardiogram done on 05/09/2019 showed ejection fraction 50-55%. Ms Gerard began her first cycle of chemotherapy on 05/31/2019. She is here today for follow-up. This is day 15. States overall she is doing well. She has noticed some tingling in her toes that comes and goes. She states it is not there all the time. She had noticed an increase in the last week. She states she feels much better in general. She been able to get out and be somewhat active around the yard. She denies any new shortness of breath orthopnea. She is had no fever or chills since her last visit. She denies any new pain. She states the diarrhea has stopped. Her taste is not a lot better yet but is no worse. She denies any mouth sores currently. Her ECOG today is 2. Past Medical History: Anxiety Depression Gastroesophageal reflux disease Past Surgical History: Right Internal Juglar Port A Cath-Dr Roberson ([facility] [place]) in 2019 Left breast excisional biopsy in 2019 Left breast biopsy in 1999 Allergies: No Known Allergies. Medications: Anti-Diarrheal 1 (2 mg) Tablet Oral daily PRN Ibuprofen 2 - 3 Tablet (of 200 mg) Oral PRN NexIUM 1 Capsule (of 20 mg) Capsule Delayed Release Oral daily traMADol HCl 1 (50 mg) Tablet Oral t.i.d. PRN Family History: Ms. Gerard's mother at age 75: breast cancer. Ms. Greard's father is alive: lung cancer. 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 Ms. Gerard has never smoked. She is a former drinker. Ms. Gerard reports the following support systems: lives alone, lives in own house, supportive family/friends willing to assist with needs, and adequate transportation available for expected visits. Her diet consists of regular meals. She indicates her activity level as: regular exercise. Review Of Symptoms: Constitutional Denies fevers, chills, night sweats. She states she feels much better this week. Allergic/Immunologic No reactions. Eyes Denies significant visual changes. No diplopia. No amaurosis. ENMT Denies changes in hearing, sore throat, mouth sores, difficulty or changes in swallowing ability, and/or sinus drainage. Mouth is tender and things taste bad -but overall much better. Hematologic/Lymphatic Denies easy bruising or bleeding. The patient denies any tender or palpable lymph nodes. Breasts no concerns. Respiratory Denies dyspnea on exertion, chest pain, cough or hemoptysis. Denies orthopnea. Cardiovascular Denies anginal chest pain, palpitations or orthopnea. Gastrointestinal Has had nausea/vomiting at least 3 times since her last chemo. Lorazepam does seem to help some, Diarrhea has improved. Genitourinary (F) No hematuria, hesitancy, incontinence, vaginal bleeding, discharge or other problems with urination. Musculoskeletal Denies joint pain, swelling or redness. No decreased range of motion. Integumentary Denies chronic rashes, inflammation, ulcerations or skin changes. Neurologic Denies headache, blurred vision, and no areas of focal weakness or numbness. Normal gait. No sensory problems. Psychiatric Denies insomnia, depression, aba or mood swings. Vital Signs: Performed on Jun 14, 2019 08:57 Height - 65.00 in Weight - 248.6 lbs (LOW) BSA - 2.17 sq.m BMI - 41.37 (HIGH) Temperature - 97.5 F (LOW) Pulse - 76 /min BP - 144/81 mm(hg) (HIGH) O2 Sat - 95 % (LOW) Pain - 0 Fatigue - 2,1 - No physically strenuous activity, but ambulatory and able to carry out light or sedentary work (e.g. office work, light house work). (ECOG) Physical Examination: Constitutional Alert, oriented, no acute distress. Skin pink, warm and dry. Head Normocephalic; atraumatic. Eyes Conjunctivae and sclerae are clear and without icterus. Pupils are reactive and equal. ENMT No oral exudates, ulcers, masses, thrush or mucositis. Oropharynx clear. Tongue normal. Neck Supple without masses or thyromegaly. No jugular venous distension. Hematologic/Lymphatic No petechiae or purpura. No tender or palpable lymph nodes in the cervical or supraclavicular areas. Respiratory Lungs are clear to auscultation without rhonchi or wheezing. Cardiovascular Regular rate and rhythm of heart without murmurs,clicks, gallops or rubs. Chest Chest is symmetric without chest wall deformities. Right internal jugular port a cath insertion site is unremarkable. Abdomen Non-tender, non-distended, no masses or ascites. Good bowel sounds noted in all quads. No guarding or rebound tenderness. No pulsatile masses. Back/Spine Non-tender to palpation. Extremities No visible deformities, no cyanosis, clubbing or edema. Musculoskeletal No tenderness or swelling, normal range of motion without obvious weakness. Integumentary No rashes or lesions. Neurologic No sensory or motor deficits, normal cerebellar function, normal gait. Psychiatric Alert and oriented times three. Coherent speech. Verbalizes understanding of our discussions today. Laboratory:Test performed on Jun 07, 2019 09:30 Sodium 142 mmol/L Potassium 3.4 mmol/L Chloride 100 mmol/L CO2 30 mmol/L Anion Gap 15.4 BUN 7 mg/dL Creatinine 0.8 mg/dL Cr Clearance (Est) 155.2000 mL/min eGFR 74.7 mL/min Glucose 121 mg/dL Calcium 9.3 mg/dL Protein, Total 6.8 g/dL Albumin 3.2 g/dL Globulin 3.6 g/dL Bilirubin, Total 0.8 mg/dL ALT (SGPT) 103 U/L AST (SGOT) 69 U/L Alkaline Phosphatase 61 IU/L WBC 1.1 10 3/uL RBC 3.82 10 6/uL HGB 11.3 g/dL HCT 34.7 % MCV 90.8 fL MCH 29.6 pg MCHC 32.6 g/dL RDW 12.8 % Platelet Count 323 10 3/cmm MPV 10.5 fL Neutrophils 0.3 10 3/uL Lymphocytes 0.6 10 3/uL Monocytes 0.1 10 3/uL Eosinophils 0.0 10 3/uL Basophils 0.0 10 3/uL Neutrophil % 30.1 % Lymphocyte % 54.5 % Monocyte % 10.9 % Eosinophil % 2.7 % Basophils % 1.8 % Impression: metastatic left breast cancer, with a left FDG positive axillary lymphadenopathy,and FDG positive right axillary lymphadenopathy, and left cervical level IV FDG positive lymph node per CT PET scan done on 05/05/2019 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 She has had port placement r(right internal jugular). Dr Grijalva discussed with Ms Gerard the CT PET scan findings, which showed metastatic disease to the bilateral axilla and level IVFDG positive left cervical lymph node. No other distant metastatic disease seen. Her echocardiogram shows ejection fraction 50-55%. Dr Grijalva recommended treatment with systemic therapy with pertuzumab/Herceptin/Taxotere every 3 weeks ???4-6 cycles and then evaluate with follow-up CT PET scan if it shows good response then consider surgical evaluation and radiation evaluation. Ms Gerard began her first cycle of chemotherapy on 05/31/2019. She did not receive Neulasta. Cycle 1 has been complicated thus far with persistent diarrhea and intermittent vomiting. As of day 15 the diarrhea and vomiting has subsided. Plan: 1. Continue current plan of care. 2. Will continue Zofran ODT 8 mg to antiemetic regimen at home. 3. Will plan to add Emend for chemoinduced nausea/vomiting with cycle 2. 4. For mucositis: Magic Mouthwash and oral Diflucan 100 mg po daily x 7 days. May need to refill for second cycle. 5. Labs from the 06/11/2019 in home lab visit were reviewed in detail and discussed with MS Gerard and a copy was given to her. WBC 26.4, hemoglobin 12.2, platelets 330,000 ANC is 18,300. potassium 3.4 ALT and AST are both elevated ALT is 103, AST is 69 alk phos is normal and total bilirubin is normal. She has documented weight loss today-her weight was documented to 69.6 on May 16, 2019 and is 249.5 today. 6. Will need to monitor tingling in toes 7. We will plan to have her return back in 1 week with CBC, CMP and follow-up. 8. She may have supportive care as needed in the interim. 9. Ms. Gerard was instructed to contact us in the interim should questions or problems arise or if her nausea vomiting or diarrhea returns or worsens. Signed By: Barney Arias-, AOCNP Annie Grijalva MD <<Signature on File>>
[2019-06-21 07:46] LABS: Hematocrit 35.6 % (37.0-47.0); Hemoglobin 11.5 g/dL (11.5-15.3); Lymphocytes # 1.4 10^3/uL (0.8-4.8); Lymphocytes % 13.9 %; Mean Corpuscular HGB Conc 32.3 g/dL (30.0-36.0); Mean Corpuscular Hemoglobin 28.8 pg (28.0-34.0); Mean Platelet Volume 9.9 fL (7.4-10.4); Monocytes # 0.1 10^3/uL (0.2-0.9); Monocytes % 1.4 %; Neutrophils # 8.3 10^3/uL (1.8-7.7); Nucleated Red Blood Cells % 0.2 %; Platelet Count 464 10^3/cmm (130-400); Red Cell Distribution Width 13.7 % (12.1-15.1); White Blood Count 9.9 10^3/uL (4.0-10.0)
[2019-06-21 08:07] LABS: Alanine Aminotransferase 44 U/L (0-33); Albumin Level 3.7 g/dL (3.5-5.2); Alkaline Phosphatase 70 IU/L (35-105); Anion Gap 16.6 (5-19); Aspartate Amino Transferase 27 U/L (0-32); Blood Urea Nitrogen 11 mg/dL (6-20); Calcium 9.6 mg/dL (8.5-10.5); Carbon Dioxide 29 mmol/L (22-29); Chloride 99 mmol/L (98-107); Globulin 3.1 g/dL (1.3-4.6); Glomerular Filtration Rate 51.8 mL/min (90-130); Glucose 151 mg/dL (65-115); Osmolality Calculated 291 mOsm/kg (285-295); Potassium 3.6 mmol/L (3.5-5.1); Sodium 141 mmol/L (136-145); Total Bilirubin 0.3 mg/dL (0.15-1.2); Total Protein 6.8 g/dL (6.6-8.7)
[2019-06-21] MEDS: acetaminophen 325 mg Tablet 650 MG PO (09:20)
[2019-06-21] MEDS: sodium chloride 0.9% 250 ML 75 ML IV (09:50)
--- NOTE | 2019-06-21 16:58 | ONC FU_ITS ---
Dr. Grijalva follow up note Patient: Samir Gerard Unit #: [id number]: 1965 Dicatated By: Annie Grijalva M.D.Date of Visit:Jun 21, 2019 Onc Med Follow-up/Prog Note History of Present Illness: Ms. Gerard is a 53-year-old female with history of left breast mass. She underwent biopsy about 20 years ago and it was negative, showed fibrous tissue only. Since then, she had no more follow-up mammograms until about 2 months ago when she went to emergency room with left breast 'inflammation'and progressive swelling and left axillary lymphadenopathy. A,t that time she was referred to oncology but did not follow through, but continue to follow with primary care. Eventually on 04/10/2019 she was referred to surgery. Dr. Monten[place]ro evaluated her and she underwent left breast biopsy on 04/12/2019.v The biopsy reported invasive carcinoma, high-grade with dermal lymphatics involvement and perineural invasion. Identified also involvement of dermis e.g. 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 She presented with complaints of clear fluid oozing from the left breast skin and nipple as well as left axillary fullness. The left breast was swollen with overlying skin changes including under left axilla. Family history significant for mother with breast cancer and maternal aunt with breast cancer. She began menses patient at age 10 and has had no pregnancies. Ms Gerard has chronic discomfort/pain in her left upper back and left axilla. And whole left breast was swollen with overlying skin changes with off-and-on serosanguineous discharge from the nipple and skin. follow-up CT PET scan done on 05/05/2019 Showed 2 sites of FDG positive nodular dermal thickening in the left breast. Dominant lesion measures 2.2 x 3.4 cm with SUV of 14.7. And second lower inner quadrant lesion measured 1.4 cm with SUV of 9.7. Left axillary lymph nodes enlarged and FDG positive with index node measured 2.4 cm with SUV of 6.2. Additionally there are smaller but FDG positive lymph nodes. A left level IV cervical node measuring 1 cm has SUV of 4.8 indicating distant metastatic disease. Right axillary lymph node FDG positive, consistent with metastatic disease. discussed with Ms Gerard the CT PET scan findings, which showed metastatic disease to the bilateral axilla and level IVFDG positive left cervical lymph node. No other distant metastatic disease seen. Her echocardiogram shows ejection fraction 50-55%. Dr Grijalva recommended treatment with systemic therapy with pertuzumab/Herceptin/Taxotere every 3 weeks ???4-6 cycles and then evaluate with follow-up CT PET scan if it shows good response then consider surgical evaluation and radiation evaluation. Echocardiogram done on 05/09/2019 showed ejection fraction 50-55%. Ms Gerard began her first cycle of chemotherapy on 05/31/2019. Came for follow-up, denies any specific complaints today, as per patient she had one episode of vomiting and nausea with first chemotherapy cycle since then no other issues no fever no chills no nausea vomiting no mouth sores no diarrhea constipation. Left breast skin lesions are improving, oozing is minimum. Medications: Anti-Diarrheal 1 (2 mg) Tablet Oral daily PRN, Dexamethasone (4 mg) Tablet Oral Take as Directed, HYDROcodone-Acetaminophen 1 - 2 Tablet (of 5-325 mg) Oral q 4 hours PRN, Ibuprofen 2 - 3 Tablet (of 200 mg) Oral PRN, Klor-Con 10 1 Tablet (of 10 meq) Tablet, controlled release Oral daily, LORazepam 0.5 - 1 Tablet (of 1 mg) Oral t.i.d. PRN, magic mouthwash 2 mL Liquid t.i.d., Ondansetron 1 Tablet (of 4 mg) Tablet Dispersable Oral t.i.d. PRN, Prochlorperazine Maleate 1 (10 mg) Tablet Oral q 4 hours PRN, traMADol HCl 1 (50 mg) Tablet Oral t.i.d. PRN Allergies: No Known Allergies. Review of Systems: Constitutional - Appetite is fair and weight is stable. No fever, chills. Positive for hot flashes and night sweats. Energy level is fair, ENMT - No sinus congestion/drainage. No mouth sores. No sore throat. Occasional difficulty swallowing, Hematologic/Lymphatic - No abnormal bruising or bleeding, Respiratory - No shortness of breath. No cough. No pleuritic pain or hemoptysis, Cardiovascular - No angina pain. No palpitations, Gastrointestinal - Positive for nausea and occasional vomiting. Positive for heartburn, no acid reflux. No diarrhea or constipation. No blood in the stool or black stools, Genitourinary (F) - No dysuria or hematuria. Positive for urinary frequency. No urgency or incontinence, Musculoskeletal - Positive for joint pain, Integumentary - Positive for edema of right lower leg, Neurologic - No headache or dizziness. No numbness/paresthesias or other focal neurologic symptoms, Psychiatric - Positive for anxiety and depression. Vital Signs: Performed on Jun 21, 2019 12:50 Height - 65.00 in Temperature - 97.1 F (LOW) Pulse - 57 /min (LOW) Respiration - 18 /min BP - 118/69 mm(hg) O2 Sat - 97 % Pain - 0 Fatigue - 0 Performed on Jun 21, 2019 07:40 Height - 65.00 in Weight - 249.8 lbs (HIGH) BSA - 2.17 sq.m BMI - 41.57 (HIGH) Temperature - 97.2 F (LOW) Pulse - 88 /min Respiration - 18 /min BP - 120/73 mm(hg) O2 Sat - 98 % Pain - 0 Fatigue - 0 Performance Status: 0 - Fully active, able to carry on all predisease activities without restrictions. (ECOG) Physical Examination: Respiratory - Lungs are clear to auscultation without rhonchi or wheezing, Cardiovascular - Regular rate and rhythm of heart, Extremities - no edema. Lab/Imaging: Test performed on Jun 07, 2019 09:30 Sodium 142 mmol/L Potassium 3.4 mmol/L Chloride 100 mmol/L CO2 30 mmol/L Anion Gap 15.4 BUN 7 mg/dL Creatinine 0.8 mg/dL Cr Clearance (Est) 155.2000 mL/min eGFR 74.7 mL/min Glucose 121 mg/dL Calcium 9.3 mg/dL Protein, Total 6.8 g/dL Albumin 3.2 g/dL Globulin 3.6 g/dL Bilirubin, Total 0.8 mg/dL ALT (SGPT) 103 U/L AST (SGOT) 69 U/L Alkaline Phosphatase 61 IU/L WBC 1.1 10 3/uL RBC 3.82 10 6/uL HGB 11.3 g/dL HCT 34.7 % MCV 90.8 fL MCH 29.6 pg MCHC 32.6 g/dL RDW 12.8 % Platelet Count 323 10 3/cmm MPV 10.5 fL Neutrophils 0.3 10 3/uL Lymphocytes 0.6 10 3/uL Monocytes 0.1 10 3/uL Eosinophils 0.0 10 3/uL Basophils 0.0 10 3/uL Neutrophil % 30.1 % Lymphocyte % 54.5 % Monocyte % 10.9 % Eosinophil % 2.7 % Basophils % 1.8 % Impression: metastatic left breast cancer, with a left FDG positive axillary lymphadenopathy,and FDG positive right axillary lymphadenopathy, and left cervical level IV FDG positive lymph node per CT PET scan done on 05/05/2019 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 She has had port placement r(right internal jugular). Dr Grijalva discussed with Ms Gerard the CT PET scan findings, which showed metastatic disease to the bilateral axilla and level IVFDG positive left cervical lymph node. No other distant metastatic disease seen. Her echocardiogram shows ejection fraction 50-55%. Dr Grijalva recommended treatment with systemic therapy with pertuzumab/Herceptin/Taxotere every 3 weeks ???4-6 cycles and then evaluate with follow-up CT PET scan if it shows good response then consider surgical evaluation and radiation evaluation. Ms Gerard began her first cycle of chemotherapy on 05/31/2019. She did not receive Neulasta. Cycle 1 has been complicated thus far with persistent diarrhea and intermittent vomiting. As of day 15 the diarrhea and vomiting has subsided. Plan: Discussed with patient regarding her labs white blood count 9.9 hemoglobin 11.5 crit 35.6 platelets 464,000 CMP within normal limits Clinically, patient is doing well tolerated first cycle of chemotherapy with docetaxel/Herceptin/perjeta well but with expected side effects e.g. nausea/vomiting. And progressive leukopenia/neutropenia requiring Neupogen. We'll proceed with next cycle #2 with docetaxel/Herceptin/perjeta with Neulasta support to prevent chemotherapy-induced neutropenia and to maintain schedule Patient return to clinic in 1 week with CBC CMP and if continued to tolerate we will add carboplatin with the next cycle of chemotherapy to maximize the benefit otherwise continue same. As far as mild nausea vomiting concern patient was advised use lorazepam as needed. Signed By: Annie Grijalva M.D. <<Signature on File>>
[2019-06-28 09:48] LABS: Basophils % 2.3 %; Eosinophils % 0.6 %; Hematocrit 38.8 % (37.0-47.0); Hemoglobin 12.6 g/dL (11.5-15.3); Lymphocytes # 1.2 10^3/uL (0.8-4.8); Lymphocytes % 69.9 %; Mean Corpuscular HGB Conc 32.5 g/dL (30.0-36.0); Mean Corpuscular Hemoglobin 29.4 pg (28.0-34.0); Mean Corpuscular Volume 90.4 fL (81-99); Mean Platelet Volume 10.5 fL (7.4-10.4); Monocytes # 0.1 10^3/uL (0.2-0.9); Monocytes % 6.9 %; Neutrophils % 20.3 %; Nucleated Red Blood Cells % 0 %; Platelet Count 478 10^3/cmm (130-400); Red Blood Count 4.29 10^6/uL (4.1-5.3); Red Cell Distribution Width 13.6 % (12.1-15.1); White Blood Count 1.7 10^3/uL (4.0-10.0)
[2019-06-28 10:06] LABS: Neutrophils # 0.4 10^3/uL (1.8-7.7)
[2019-06-28 10:08] LABS: Alanine Aminotransferase 96 U/L (0-33); Albumin Level 3.2 g/dL (3.5-5.2); Alkaline Phosphatase 64 IU/L (35-105); Anion Gap 22.4 (5-19); Aspartate Amino Transferase 62 U/L (0-32); Blood Urea Nitrogen 6 mg/dL (6-20); Calcium 8.5 mg/dL (8.5-10.5); Carbon Dioxide 23 mmol/L (22-29); Chloride 99 mmol/L (98-107); Globulin 3.3 g/dL (1.3-4.6); Glomerular Filtration Rate 57.8 mL/min (90-130); Glucose 132 mg/dL (65-115); Osmolality Calculated 290 mOsm/kg (285-295); Potassium 3.4 mmol/L (3.5-5.1); Sodium 141 mmol/L (136-145); Total Bilirubin 0.6 mg/dL (0.15-1.2); Total Protein 6.5 g/dL (6.6-8.7)
--- NOTE | 2019-06-28 11:48 | ONC FU_ITS ---
Dr. Grijalva follow up note Patient: Samir Gerard Unit #: [id number]: 1965 Dicatated By: Anine Grijalva M.D.Date of Visit:Jun 28, 2019 Onc Med Follow-up/Prog Note History of Present Illness: Ms. Gerard is a 53-year-old female with history of left breast mass. She underwent biopsy about 20 years ago and it was negative, showed fibrous tissue only. Since then, she had no more follow-up mammograms until about 2 months ago when she went to emergency room with left breast 'inflammation'and progressive swelling and left axillary lymphadenopathy. A,t that time she was referred to oncology but did not follow through, but continue to follow with primary care. Eventually on 04/10/2019 she was referred to surgery. Dr. [place]en[place] evaluated her and she underwent left breast biopsy on 04/12/2019.v The biopsy reported invasive carcinoma, high-grade with dermal lymphatics involvement and perineural invasion. Identified also involvement of dermis e.g. 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 She presented with complaints of clear fluid oozing from the left breast skin and nipple as well as left axillary fullness. The left breast was swollen with overlying skin changes including under left axilla. Family history significant for mother with breast cancer and maternal aunt with breast cancer. She began menses patient at age 10 and has had no pregnancies. Ms Gerard has chronic discomfort/pain in her left upper back and left axilla. And whole left breast was swollen with overlying skin changes with off-and-on serosanguineous discharge from the nipple and skin. follow-up CT PET scan done on 05/05/2019 Showed 2 sites of FDG positive nodular dermal thickening in the left breast. Dominant lesion measures 2.2 x 3.4 cm with SUV of 14.7. And second lower inner quadrant lesion measured 1.4 cm with SUV of 9.7. Left axillary lymph nodes enlarged and FDG positive with index node measured 2.4 cm with SUV of 6.2. Additionally there are smaller but FDG positive lymph nodes. A left level IV cervical node measuring 1 cm has SUV of 4.8 indicating distant metastatic disease. Right axillary lymph node FDG positive, consistent with metastatic disease. discussed with Ms Gerard the CT PET scan findings, which showed metastatic disease to the bilateral axilla and level IVFDG positive left cervical lymph node. No other distant metastatic disease seen. Her echocardiogram shows ejection fraction 50-55%. Dr Grijalva recommended treatment with systemic therapy with pertuzumab/Herceptin/Taxotere every 3 weeks ???4-6 cycles and then evaluate with follow-up CT PET scan if it shows good response then consider surgical evaluation and radiation evaluation. Echocardiogram done on 05/09/2019 showed ejection fraction 50-55%. Ms Gerard began her first cycle of chemotherapy on 05/31/2019. Came for follow-up, denies any specific complaints, tolerated second cycle of chemotherapy well, no nausea or vomiting no fever or chills, left breast oozing has improved further. Medications: Anti-Diarrheal 1 (2 mg) Tablet Oral daily PRN, Dexamethasone (4 mg) Tablet Oral Take as Directed, HYDROcodone-Acetaminophen 1 - 2 Tablet (of 5-325 mg) Oral q 4 hours PRN, Ibuprofen 2 - 3 Tablet (of 200 mg) Oral PRN, Klor-Con 10 1 Tablet (of 10 meq) Tablet, controlled release Oral daily, LORazepam 0.5 - 1 Tablet (of 1 mg) Oral t.i.d. PRN, magic mouthwash 2 mL Liquid t.i.d., Ondansetron 1 Tablet (of 4 mg) Tablet Dispersable Oral t.i.d. PRN, Prochlorperazine Maleate 1 (10 mg) Tablet Oral q 4 hours PRN, traMADol HCl 1 (50 mg) Tablet Oral t.i.d. PRN Allergies: No Known Allergies. Review of Systems: Constitutional - Appetite is fair and weight is stable. No fever, chills. Positive for hot flashes and night sweats. Energy level is fair, ENMT - No sinus congestion/drainage. No mouth sores. No sore throat. Occasional difficulty swallowing, Hematologic/Lymphatic - No abnormal bruising or bleeding, Respiratory - No shortness of breath. No cough. No pleuritic pain or hemoptysis, Cardiovascular - No angina pain. No palpitations, Gastrointestinal - Positive for nausea and occasional vomiting. Positive for heartburn, no acid reflux. No diarrhea or constipation. No blood in the stool or black stools, Genitourinary (F) - No dysuria or hematuria. Positive for urinary frequency. No urgency or incontinence, Musculoskeletal - Positive for joint pain, Integumentary - Right Lower Leg edema has improved since last visit, Neurologic - No headache or dizziness. No numbness/paresthesias or other focal neurologic symptoms, Psychiatric - Positive for anxiety and depression. Vital Signs: Performed on Jun 28, 2019 11:02 Height - 65.00 in Weight - 237.4 lbs (LOW) BSA - 2.13 sq.m BMI - 39.51 (HIGH) Temperature - 98.8 F Pulse - 111 /min (HIGH) Respiration - 20 /min BP - 116/86 mm(hg) O2 Sat - 95 % (LOW) Pain - 0 Performance Status: 0 - Fully active, able to carry on all predisease activities without restrictions. (ECOG) Physical Examination: Respiratory - Lungs are clear to auscultation without rhonchi or wheezing, Cardiovascular - Regular rate and rhythm of heart, Extremities - no edema. Lab/Imaging: Test performed on Jun 07, 2019 09:30 Sodium 142 mmol/L Potassium 3.4 mmol/L Chloride 100 mmol/L CO2 30 mmol/L Anion Gap 15.4 BUN 7 mg/dL Creatinine 0.8 mg/dL Cr Clearance (Est) 155.2000 mL/min eGFR 74.7 mL/min Glucose 121 mg/dL Calcium 9.3 mg/dL Protein, Total 6.8 g/dL Albumin 3.2 g/dL Globulin 3.6 g/dL Bilirubin, Total 0.8 mg/dL ALT (SGPT) 103 U/L AST (SGOT) 69 U/L Alkaline Phosphatase 61 IU/L WBC 1.1 10 3/uL RBC 3.82 10 6/uL HGB 11.3 g/dL HCT 34.7 % MCV 90.8 fL MCH 29.6 pg MCHC 32.6 g/dL RDW 12.8 % Platelet Count 323 10 3/cmm MPV 10.5 fL Neutrophils 0.3 10 3/uL Lymphocytes 0.6 10 3/uL Monocytes 0.1 10 3/uL Eosinophils 0.0 10 3/uL Basophils 0.0 10 3/uL Neutrophil % 30.1 % Lymphocyte % 54.5 % Monocyte % 10.9 % Eosinophil % 2.7 % Basophils % 1.8 % Impression: metastatic left breast cancer, with a left FDG positive axillary lymphadenopathy,and FDG positive right axillary lymphadenopathy, and left cervical level IV FDG positive lymph node per CT PET scan done on 05/05/2019 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 She has had port placement r(right internal jugular). discussed with Ms Gerard the CT PET scan findings, which showed metastatic disease to the bilateral axilla and level IVFDG positive left cervical lymph node. No other distant metastatic disease seen. Her echocardiogram shows ejection fraction 50-55%. recommended treatment with systemic therapy with pertuzumab/Herceptin/Taxotere every 3 weeks ???4-6 cycles and then evaluate with follow-up CT PET scan if it shows good response then consider surgical evaluation and radiation evaluation. Ms Gerard began her first cycle of chemotherapy on 05/31/2019. She did not receive Neulasta. Cycle 1 has been complicated thus far with persistent diarrhea and intermittent vomiting. As of day 15 the diarrhea and vomiting has subsided. Plan: Discussed with patient regarding her labs white blood count 1.7 hemoglobin 12.6 hematocrit 38.8 platelets 478,000 ANC 400 CMP within normal limit except elevated transaminases and glucose 132 and potassium 3.4 Clinically, patient is doing well, tolerating systemic therapy with Herceptin/perjeta/docetaxel well but with expected side effects e.g. progressive leukopenia and neutropenia, episode of diarrhea which has resolved. Today's lab shows neutropenia, ANC 400, patient was supposed to get posttreatment Neulasta, which was not done so we will give her Neupogen 480 ???g subcutaneous today and then tomorrow and also consider prophylactic Levaquin 500 mg by mouth daily. Patient was advised to stay away from public places , and take neutropenic precautions including no fresh fruits or vegetables and in case fever even up to 100f, she did go to hospital immediately otherwise return to clinic in 1 week with CBC and CMP Patient has abnormal LFTs which has been fluctuating last week her ALT was 44 EST was 27 and today he ALT gone up to 96 and AST 62 bilirubin is 0.6. We will continue to monitor and also patient was advised to take potassium supplement and follow her electrolytes and liver function test when she return to clinic in 1 week. And we will consider Neulasta with next cycle and also consider CT PET scan of the third cycle, to assess the response to the treatment. Signed By: Annie Grijalva M.D. <<Signature on File>>
[2019-07-05 09:26] LABS: Basophils # 0.1 10^3/uL (0.0-0.1); Basophils % 0.7 %; Eosinophils % 0.1 %; Hematocrit 40.1 % (37.0-47.0); Hemoglobin 12.4 g/dL (11.5-15.3); Lymphocytes # 2.3 10^3/uL (0.8-4.8); Lymphocytes % 31.9 %; Mean Corpuscular HGB Conc 30.9 g/dL (30.0-36.0); Mean Corpuscular Volume 93.7 fL (81-99); Mean Platelet Volume 9.7 fL (7.4-10.4); Monocytes # 1.1 10^3/uL (0.2-0.9); Monocytes % 15.5 %; Neutrophils # 3.4 10^3/uL (1.8-7.7); Neutrophils % 46.9 %; Nucleated Red Blood Cells % 0.6 %; Platelet Count 297 10^3/cmm (130-400); Red Blood Count 4.28 10^6/uL (4.1-5.3); Red Cell Distribution Width 15.8 % (12.1-15.1); White Blood Count 7.2 10^3/uL (4.0-10.0)
[2019-07-05 09:36] LABS: Alanine Aminotransferase 46 U/L (0-33); Albumin Level 3.6 g/dL (3.5-5.2); Alkaline Phosphatase 70 IU/L (35-105); Anion Gap 16.5 (5-19); Aspartate Amino Transferase 40 U/L (0-32); Blood Urea Nitrogen 4 mg/dL (6-20); Calcium 8.9 mg/dL (8.5-10.5); Carbon Dioxide 29 mmol/L (22-29); Chloride 100 mmol/L (98-107); Globulin 2.2 g/dL (1.3-4.6); Glomerular Filtration Rate 57.8 mL/min (90-130); Glucose 104 mg/dL (65-115); Osmolality Calculated 290 mOsm/kg (285-295); Potassium 3.5 mmol/L (3.5-5.1); Sodium 142 mmol/L (136-145); Total Bilirubin 0.3 mg/dL (0.15-1.2); Total Protein 5.8 g/dL (6.6-8.7)
--- NOTE | 2019-07-05 10:54 | ONC FU_ITS ---
Dr. Grijalva follow up note Patient: Samir Gerard Unit #: [id number]: 1965 Dicatated By: Annie Grijalva M.D.Date of Visit:Jul 05, 2019 Onc Med Follow-up/Prog Note History of Present Illness: Ms. Gerard is a 53-year-old female with history of left breast mass. She underwent biopsy about 20 years ago and it was negative, showed fibrous tissue only. Since then, she had no more follow-up mammograms until about 2 months ago when she went to emergency room with left breast 'inflammation'and progressive swelling and left axillary lymphadenopathy. A,t that time she was referred to oncology but did not follow through, but continue to follow with primary care. Eventually on 04/10/2019 she was referred to surgery. Dr. Monten[place]ro evaluated her and she underwent left breast biopsy on 04/12/2019.v The biopsy reported invasive carcinoma, high-grade with dermal lymphatics involvement and perineural invasion. Identified also involvement of dermis e.g. 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 She presented with complaints of clear fluid oozing from the left breast skin and nipple as well as left axillary fullness. The left breast was swollen with overlying skin changes including under left axilla. Family history significant for mother with breast cancer and maternal aunt with breast cancer. She began menses patient at age 10 and has had no pregnancies. Ms Gerard has chronic discomfort/pain in her left upper back and left axilla. And whole left breast was swollen with overlying skin changes with off-and-on serosanguineous discharge from the nipple and skin. follow-up CT PET scan done on 05/05/2019 Showed 2 sites of FDG positive nodular dermal thickening in the left breast. Dominant lesion measures 2.2 x 3.4 cm with SUV of 14.7. And second lower inner quadrant lesion measured 1.4 cm with SUV of 9.7. Left axillary lymph nodes enlarged and FDG positive with index node measured 2.4 cm with SUV of 6.2. Additionally there are smaller but FDG positive lymph nodes. A left level IV cervical node measuring 1 cm has SUV of 4.8 indicating distant metastatic disease. Right axillary lymph node FDG positive, consistent with metastatic disease. discussed with Ms Gerard the CT PET scan findings, which showed metastatic disease to the bilateral axilla and level IVFDG positive left cervical lymph node. No other distant metastatic disease seen. Her echocardiogram shows ejection fraction 50-55%. recommended treatment with systemic therapy with pertuzumab/Herceptin/Taxotere every 3 weeks ???4-6 cycles and then evaluate with follow-up CT PET scan if it shows good response then consider surgical evaluation and radiation evaluation. Echocardiogram done on 05/09/2019 showed ejection fraction 50-55%. Ms Gerard began her first cycle of chemotherapy on 05/31/2019. Came for follow-up, denies any specific complaints, no fever or chills, no nausea or vomiting, no diarrhea constipation, tolerating Neupogen well. No bony pains. No more left breast discharge. Medications: Anti-Diarrheal 1 (2 mg) Tablet Oral daily PRN, Dexamethasone (4 mg) Tablet Oral Take as Directed, HYDROcodone-Acetaminophen 1 - 2 Tablet (of 5-325 mg) Oral q 4 hours PRN, Ibuprofen 2 - 3 Tablet (of 200 mg) Oral PRN, Klor-Con 10 1 Tablet (of 10 meq) Tablet, controlled release Oral daily, LORazepam 0.5 - 1 Tablet (of 1 mg) Oral t.i.d. PRN, magic mouthwash 2 mL Liquid t.i.d., Ondansetron 1 Tablet (of 4 mg) Tablet Dispersable Oral t.i.d. PRN, Prochlorperazine Maleate 1 (10 mg) Tablet Oral q 4 hours PRN, traMADol HCl 1 (50 mg) Tablet Oral t.i.d. PRN Allergies: No Known Allergies. Review of Systems: Constitutional - Appetite is fair and weight is stable. No fever, chills. Positive for hot flashes and night sweats. Energy level is fair, ENMT - No sinus congestion/drainage. No mouth sores. No sore throat. Occasional difficulty swallowing, Hematologic/Lymphatic - No abnormal bruising or bleeding, Respiratory - No shortness of breath. No cough. No pleuritic pain or hemoptysis, Cardiovascular - No angina pain. No palpitations, Gastrointestinal - Positive for nausea and occasional vomiting. Positive for heartburn, no acid reflux. No diarrhea or constipation. No blood in the stool or black stools, Genitourinary (F) - No dysuria or hematuria. Positive for urinary frequency. No urgency or incontinence, Musculoskeletal - Positive for joint pain, Integumentary - Right Lower Leg edema has improved since last visit, Neurologic - No headache or dizziness. No numbness/paresthesias or other focal neurologic symptoms, Psychiatric - Positive for anxiety and depression. Vital Signs: Performed on Jul 05, 2019 10:18 Height - 65.00 in Weight - 239.2 lbs (HIGH) BSA - 2.13 sq.m BMI - 39.81 (HIGH) Temperature - 97.8 F (LOW) Pulse - 73 /min Respiration - 22 /min BP - 143/88 mm(hg) (HIGH) O2 Sat - 96 % Pain - 0 Performance Status: 0 - Fully active, able to carry on all predisease activities without restrictions. (ECOG) Physical Examination: Respiratory - Lungs are clear to auscultation without rhonchi or wheezing, Cardiovascular - Regular rate and rhythm of heart, Extremities - no edema. Lab/Imaging: Test performed on Jun 28, 2019 09:30 Sodium 141 mmol/L Potassium 3.4 mmol/L Chloride 99 mmol/L CO2 23 mmol/L Anion Gap 22.4 BUN 6 mg/dL Creatinine 1.0 mg/dL Cr Clearance (Est) 109.33 mL/min eGFR 57.8 mL/min Glucose 132 mg/dL Calcium 8.5 mg/dL Protein, Total 6.5 g/dL Albumin 3.2 g/dL Globulin 3.3 g/dL Bilirubin, Total 0.6 mg/dL ALT (SGPT) 96 U/L AST (SGOT) 62 U/L Alkaline Phosphatase 64 IU/L WBC 1.7 10 3/uL RBC 4.29 10 6/uL HGB 12.6 g/dL HCT 38.8 % MCV 90.4 fL MCH 29.4 pg MCHC 32.5 g/dL RDW 13.6 % Platelet Count 478 10 3/cmm MPV 10.5 fL Neutrophils 0.4 10 3/uL Lymphocytes 1.2 10 3/uL Monocytes 0.1 10 3/uL Eosinophils 0.0 10 3/uL Basophils 0.0 10 3/uL Neutrophil % 20.3 % Lymphocyte % 69.9 % Monocyte % 6.9 % Eosinophil % 0.6 % Basophils % 2.3 % Test performed on Jun 11, 2019 08:20 Magnesium 1.6 mg/dL Manual Bands % 50.0 % Manual Lymphs % 7 % Manual Monos % 9.0 % Metamyelocytes % 1.0 % Myelocytes % 1.0 % CBC Slide Review Slide Review Perform Manual Bands Abs 13.2 10 3/cmm Manual Monocytes Abs 2.4 10 3/cmm Impression: metastatic left breast cancer, with a left FDG positive axillary lymphadenopathy,and FDG positive right axillary lymphadenopathy, and left cervical level IV FDG positive lymph node per CT PET scan done on 05/05/2019 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 She has had port placement r(right internal jugular). discussed with Ms Gerard the CT PET scan findings, which showed metastatic disease to the bilateral axilla and level IVFDG positive left cervical lymph node. No other distant metastatic disease seen. Her echocardiogram shows ejection fraction 50-55%. recommended treatment with systemic therapy with pertuzumab/Herceptin/Taxotere every 3 weeks ???4-6 cycles and then evaluate with follow-up CT PET scan if it shows good response then consider surgical evaluation and radiation evaluation. Ms Gerard began her first cycle of chemotherapy on 05/31/2019. She did not receive Neulasta. Cycle 1 has been complicated thus far with persistent diarrhea and intermittent vomiting. As of day 15 the diarrhea and vomiting has subsided. Plan: Discussed with patient regarding her labs white blood count 7.2 hemoglobin 12.4 crit 40.1 platelets 297,000 ANC 3400 CMP within normal limit except mildly elevated but improved transaminases, ALT 46 compared to 96 on 06/28/2019 and AST 40 compared to 62 previously. Clinically, patient is doing well, tolerating neoadjuvant therapy with docetaxel/Herceptin/perjeta well but with expected side effects e.g. progressive leukopenia/neutropenia, now being treated with Neupogen. Her blood count has recovered significantly we will give her next dose of Neupogen today then she will return to clinic in 1 week with CBC CMP blood counts in normal range time we'll consider next cycle of chemotherapy with Neulasta support and also consider follow-up CT PET scan to assess the response Signed By: Annie Grijalva M.D. <<Signature on File>>
== END 2019-07-10 23:59 | disposition home or self-care (01) ==
LOC: ONCMED 05:50
PROVIDERS: Family Provider Nurse Practitioner Family; PCP Nurse Practitioner Family; Visit Provider Internal Medicine Hematology & Oncology
DX: Z51.11 Encounter for antineoplastic chemotherapy (principal); C50.812 Malignant neoplasm of overlapping sites of left female breast; C77.8 Secondary and unspecified malignant neoplasm of lymph nodes of multiple regions; D70.1 Agranulocytosis secondary to cancer chemotherapy; K12.31 Oral mucositis (ulcerative) due to antineoplastic therapy; T45.1X5A Adverse effect of antineoplastic and immunosuppressive drugs, initial encounter; F41.9 Anxiety disorder, unspecified; F32.9 Major depressive disorder, single episode, unspecified; K21.9 Gastro-esophageal reflux disease without esophagitis; Z17.1 Estrogen receptor negative status [ER-]; Z79.899 Other long term (current) drug therapy; Z79.891 Long term (current) use of opiate analgesic; Z80.3 Family history of malignant neoplasm of breast
CPT/HCPCS: 36591; 80053; 83735; 85007; 85025; 86300; 96367; 96372; 96413; 96417; 99214; J1100; J1200; J1442; J2469; J3490; J7050; J9171; J9306; J9355

== ENCOUNTER 2019-07-30 06:41 | Outpatient (RCR) | payer MEDICAID, SELFPAY ==
[2019-07-11 07:51] LABS: Basophils % 0.2 %; Hemoglobin 11.7 g/dL (11.5-15.3); Lymphocytes # 1.3 10^3/uL (0.8-4.8); Mean Corpuscular HGB Conc 31.6 g/dL (30.0-36.0); Mean Corpuscular Hemoglobin 29.6 pg (28.0-34.0); Mean Corpuscular Volume 93.7 fL (81-99); Mean Platelet Volume 10.4 fL (7.4-10.4); Monocytes # 0.3 10^3/uL (0.2-0.9); Monocytes % 3.5 %; Neutrophils # 6.9 10^3/uL (1.8-7.7); Neutrophils % 80.1 %; Nucleated Red Blood Cells % 0 %; Platelet Count 308 10^3/cmm (130-400); Red Blood Count 3.95 10^6/uL (4.1-5.3); Red Cell Distribution Width 16.2 % (12.1-15.1); White Blood Count 8.6 10^3/uL (4.0-10.0)
[2019-07-11 08:11] LABS: Alanine Aminotransferase 26 U/L (0-33); Albumin Level 3.8 g/dL (3.5-5.2); Alkaline Phosphatase 68 IU/L (35-105); Anion Gap 15.6 (5-19); Aspartate Amino Transferase 23 U/L (0-32); Blood Urea Nitrogen 7 mg/dL (6-20); Calcium 9.5 mg/dL (8.5-10.5); Carbon Dioxide 23 mmol/L (22-29); Chloride 106 mmol/L (98-107); Globulin 2.3 g/dL (1.3-4.6); Glomerular Filtration Rate 74.7 mL/min (90-130); Glucose 163 mg/dL (65-115); Osmolality Calculated 291 mOsm/kg (285-295); Potassium 3.6 mmol/L (3.5-5.1); Sodium 141 mmol/L (136-145); Total Bilirubin 0.3 mg/dL (0.15-1.2); Total Protein 6.1 g/dL (6.6-8.7)
[2019-07-11] MEDS: acetaminophen 325 mg Tablet 650 MG PO (09:40)
[2019-07-11] MEDS: sodium chloride 0.9% 250 ML 75 ML IV (09:40)
[2019-07-11] MEDS: sodium chloride 0.9% 100 ML 25 ML (09:50)
--- NOTE | 2019-07-11 11:13 | ONC FU_ITS ---
Dr. Grijalva follow up note Patient: Samir Gerard Unit #: [id number]: 1965 Dicatated By: Annie Grijalva M.D.Date of Visit:Jul 11, 2019 Onc Med Follow-up/Prog Note History of Present Illness: Ms. Gerard is a 53-year-old female with history of left breast mass. She underwent biopsy about 20 years ago and it was negative, showed fibrous tissue only. Since then, she had no more follow-up mammograms until about 2 months ago when she went to emergency room with left breast 'inflammation'and progressive swelling and left axillary lymphadenopathy. A,t that time she was referred to oncology but did not follow through, but continue to follow with primary care. Eventually on 04/10/2019 she was referred to surgery. Dr. Monten[place] evaluated her and she underwent left breast biopsy on 04/12/2019.v The biopsy reported invasive carcinoma, high-grade with dermal lymphatics involvement and perineural invasion. Identified also involvement of dermis e.g. 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 She presented with complaints of clear fluid oozing from the left breast skin and nipple as well as left axillary fullness. The left breast was swollen with overlying skin changes including under left axilla. Family history significant for mother with breast cancer and maternal aunt with breast cancer. She began menses patient at age 10 and has had no pregnancies. Ms Gerard has chronic discomfort/pain in her left upper back and left axilla. And whole left breast was swollen with overlying skin changes with off-and-on serosanguineous discharge from the nipple and skin. follow-up CT PET scan done on 05/05/2019 Showed 2 sites of FDG positive nodular dermal thickening in the left breast. Dominant lesion measures 2.2 x 3.4 cm with SUV of 14.7. And second lower inner quadrant lesion measured 1.4 cm with SUV of 9.7. Left axillary lymph nodes enlarged and FDG positive with index node measured 2.4 cm with SUV of 6.2. Additionally there are smaller but FDG positive lymph nodes. A left level IV cervical node measuring 1 cm has SUV of 4.8 indicating distant metastatic disease. Right axillary lymph node FDG positive, consistent with metastatic disease. discussed with Ms Gerard the CT PET scan findings, which showed metastatic disease to the bilateral axilla and level IVFDG positive left cervical lymph node. No other distant metastatic disease seen. Her echocardiogram shows ejection fraction 50-55%. recommended treatment with systemic therapy with pertuzumab/Herceptin/Taxotere every 3 weeks ???4-6 cycles and then evaluate with follow-up CT PET scan if it shows good response then consider surgical evaluation and radiation evaluation. Echocardiogram done on 05/09/2019 showed ejection fraction 50-55%. Ms Gerard began her first cycle of chemotherapy on 05/31/2019. Came for follow-up, denies any specific complaints no fever or chills, no nausea or vomiting no diarrhea constipation. No shortness of breath, no chest pain no lower extremity edema. discharge from her breast, now resolved. Tolerating systemic therapy with docetaxel/Herceptin/perjeta well. Medications: Anti-Diarrheal 1 (2 mg) Tablet Oral daily PRN, Dexamethasone (4 mg) Tablet Oral Take as Directed, HYDROcodone-Acetaminophen 1 - 2 Tablet (of 5-325 mg) Oral q 4 hours PRN, Ibuprofen 2 - 3 Tablet (of 200 mg) Oral PRN, Klor-Con 10 1 Tablet (of 10 meq) Tablet, controlled release Oral daily, LORazepam 0.5 - 1 Tablet (of 1 mg) Oral t.i.d. PRN, magic mouthwash 2 mL Liquid t.i.d., Ondansetron 1 Tablet (of 4 mg) Tablet Dispersable Oral t.i.d. PRN, Prochlorperazine Maleate 1 (10 mg) Tablet Oral q 4 hours PRN, traMADol HCl 1 (50 mg) Tablet Oral t.i.d. PRN Allergies: No Known Allergies. Review of Systems: Constitutional - Appetite is fair and weight is stable. No fever, chills. Positive for hot flashes and night sweats. Energy level is fair, ENMT - No sinus congestion/drainage. No mouth sores. No sore throat. Occasional difficulty swallowing, Hematologic/Lymphatic - No abnormal bruising or bleeding, Respiratory - No shortness of breath. No cough. No pleuritic pain or hemoptysis, Cardiovascular - No angina pain. No palpitations, Gastrointestinal - Positive for nausea and occasional vomiting. Positive for heartburn, no acid reflux. No diarrhea or constipation. No blood in the stool or black stools, Genitourinary (F) - No dysuria or hematuria. Positive for urinary frequency. No urgency or incontinence, Musculoskeletal - Positive for joint pain, Integumentary - Right Lower Leg edema has improved since last visit, Neurologic - No headache or dizziness. No numbness/paresthesias or other focal neurologic symptoms, Psychiatric - Positive for anxiety and depression. Vital Signs: Performed on Jul 11, 2019 09:08 Height - 65.00 in Weight - 239.0 lbs (LOW) BSA - 2.13 sq.m BMI - 39.77 (HIGH) Temperature - 97.9 F (LOW) Pulse - 57 /min (LOW) Respiration - 20 /min BP - 131/73 mm(hg) O2 Sat - 97 % Pain - 0 Performance Status: 0 - Fully active, able to carry on all predisease activities without restrictions. (ECOG) Physical Examination: Respiratory - Lungs are clear to auscultation without rhonchi or wheezing, Cardiovascular - Regular rate and rhythm of heart, Extremities - trace edema. Lab/Imaging: Test performed on Jul 05, 2019 09:05 Sodium 142 mmol/L Potassium 3.5 mmol/L Chloride 100 mmol/L CO2 29 mmol/L Anion Gap 16.5 BUN 4 mg/dL Creatinine 1.0 mg/dL Cr Clearance (Est) 110.16 mL/min eGFR 57.8 mL/min Glucose 104 mg/dL Calcium 8.9 mg/dL Protein, Total 5.8 g/dL Albumin 3.6 g/dL Globulin 2.2 g/dL Bilirubin, Total 0.3 mg/dL ALT (SGPT) 46 U/L AST (SGOT) 40 U/L Alkaline Phosphatase 70 IU/L WBC 7.2 10 3/uL RBC 4.28 10 6/uL HGB 12.4 g/dL HCT 40.1 % MCV 93.7 fL MCH 29.0 pg MCHC 30.9 g/dL RDW 15.8 % Platelet Count 297 10 3/cmm MPV 9.7 fL Neutrophils 3.4 10 3/uL Lymphocytes 2.3 10 3/uL Monocytes 1.1 10 3/uL Eosinophils 0.0 10 3/uL Basophils 0.1 10 3/uL Neutrophil % 46.9 % Lymphocyte % 31.9 % Monocyte % 15.5 % Eosinophil % 0.1 % Basophils % 0.7 % Test performed on Jun 11, 2019 08:20 Magnesium 1.6 mg/dL Manual Bands % 50.0 % Manual Lymphs % 7 % Manual Monos % 9.0 % Metamyelocytes % 1.0 % Myelocytes % 1.0 % CBC Slide Review Slide Review Perform Manual Bands Abs 13.2 10 3/cmm Manual Monocytes Abs 2.4 10 3/cmm Impression: metastatic left breast cancer, with a left FDG positive axillary lymphadenopathy,and FDG positive right axillary lymphadenopathy, and left cervical level IV FDG positive lymph node per CT PET scan done on 05/05/2019 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 She has had port placement r(right internal jugular). discussed with Ms Gerard the CT PET scan findings, which showed metastatic disease to the bilateral axilla and level IVFDG positive left cervical lymph node. No other distant metastatic disease seen. Her echocardiogram shows ejection fraction 50-55%. recommended treatment with systemic therapy with pertuzumab/Herceptin/Taxotere every 3 weeks ???4-6 cycles and then evaluate with follow-up CT PET scan if it shows good response then consider surgical evaluation and radiation evaluation. Ms Gerard began her first cycle of chemotherapy on 05/31/2019. She did not receive Neulasta. Cycle 1 has been complicated thus far with persistent diarrhea and intermittent vomiting. As of day 15 the diarrhea and vomiting has subsided. Plan: Discussed with patient regarding her labs white blood count 8.6 hemoglobin 11.7 crit 37 platelets 308,000 CMP within normal limits except glucose 163 Clinically, patient doing well, tolerating systemic therapy with docetaxel/Herceptin/perjeta well. We'll proceed with next, cycle #3 today with Neulasta support to prevent chemotherapy-induced neutropenia and to maintain chemotherapy schedule. And then she will return to clinic in 3 weeks with CBC CMP and follow-up CT PET scan to assess disease response and may consider adding carboplatin Signed By: Annie Grijalva M.D. <<Signature on File>>
[2019-07-11] MEDS: pegfilgrastim 6 mg/0.6 mL Kit (onpro) SUBCUT (14:19)
[2019-07-30 08:20] LABS: Hematocrit 33.2 % (37.0-47.0); Hemoglobin 10.3 g/dL (11.5-15.3); Lymphocytes # 2.1 10^3/uL (0.8-4.8); Lymphocytes % 18.3 %; Mean Corpuscular Hemoglobin 29.7 pg (28.0-34.0); Mean Corpuscular Volume 95.7 fL (81-99); Mean Platelet Volume 9.9 fL (7.4-10.4); Monocytes # 0.3 10^3/uL (0.2-0.9); Monocytes % 2.8 %; Neutrophils # 8.8 10^3/uL (1.8-7.7); Neutrophils % 78.2 %; Nucleated Red Blood Cells % 0 %; Platelet Count 477 10^3/cmm (130-400); Red Blood Count 3.47 10^6/uL (4.1-5.3); Red Cell Distribution Width 17.7 % (12.1-15.1); White Blood Count 11.2 10^3/uL (4.0-10.0)
[2019-07-30 08:42] LABS: Alanine Aminotransferase 24 U/L (0-33); Albumin Level 3.9 g/dL (3.5-5.2); Alkaline Phosphatase 54 IU/L (35-105); Anion Gap 15.9 (5-19); Aspartate Amino Transferase 18 U/L (0-32); Blood Urea Nitrogen 14 mg/dL (6-20); Calcium 9.1 mg/dL (8.5-10.5); Carbon Dioxide 26 mmol/L (22-29); Chloride 104 mmol/L (98-107); Globulin 2.3 g/dL (1.3-4.6); Glomerular Filtration Rate 74.7 mL/min (90-130); Glucose 128 mg/dL (65-115); Osmolality Calculated 292 mOsm/kg (285-295); Potassium 3.9 mmol/L (3.5-5.1); Sodium 142 mmol/L (136-145); Total Bilirubin 0.4 mg/dL (0.15-1.2); Total Protein 6.2 g/dL (6.6-8.7)
[2019-07-30] MEDS: sodium chloride 0.9% 250 ML 75 ML IV (10:50)
[2019-07-30] MEDS: acetaminophen 325 mg Tablet 650 MG PO (10:52)
--- NOTE | 2019-07-30 13:43 | ONC FU_ITS ---
Dr. Grijalva follow up note Patient: Samir Gerard Unit #: [id number]: 1965 Dicatated By: Annie Grijalva M.D.Date of Visit:Jul 30, 2019 Onc Med Follow-up/Prog Note History of Present Illness: Ms. Gerard is a 53-year-old female with history of left breast mass. She underwent biopsy about 20 years ago and it was negative, showed fibrous tissue only. Since then, she had no more follow-up mammograms until about 2 months ago when she went to emergency room with left breast 'inflammation'and progressive swelling and left axillary lymphadenopathy. A,t that time she was referred to oncology but did not follow through, but continue to follow with primary care. Eventually on 04/10/2019 she was referred to surgery. Dr. Montenegro evaluated her and she underwent left breast biopsy on 04/12/2019.v The biopsy reported invasive carcinoma, high-grade with dermal lymphatics involvement and perineural invasion. Identified also involvement of dermis e.g. diagnosed with inflammatory carcinoma of left breast. HER-2/eduar 3+ positive, ER less than 1% VA less than 1% both were negative; Ki-67 was high @ 56. She presented with complaints of clear fluid oozing from the left breast skin and nipple as well as left axillary fullness. The left breast was swollen with overlying skin changes including under left axilla. Family history significant for mother with breast cancer and maternal aunt with breast cancer. She began menses patient at age 10 and has had no pregnancies. Ms Gerard has chronic discomfort/pain in her left upper back and left axilla. And whole left breast was swollen with overlying skin changes with off-and-on serosanguineous discharge from the nipple and skin. follow-up CT PET scan done on 05/05/2019 Showed 2 sites of FDG positive nodular dermal thickening in the left breast. Dominant lesion measures 2.2 x 3.4 cm with SUV of 14.7. And second lower inner quadrant lesion measured 1.4 cm with SUV of 9.7. Left axillary lymph nodes enlarged and FDG positive with index node measured 2.4 cm with SUV of 6.2. Additionally there are smaller but FDG positive lymph nodes. A left level IV cervical node measuring 1 cm has SUV of 4.8 indicating distant metastatic disease. Right axillary lymph node FDG positive, consistent with metastatic disease. discussed with Ms Gerard the CT PET scan findings, which showed metastatic disease to the bilateral axilla and level IVFDG positive left cervical lymph node. No other distant metastatic disease seen. Her echocardiogram shows ejection fraction 50-55%. recommended treatment with systemic therapy with pertuzumab/Herceptin/Taxotere every 3 weeks ???4-6 cycles and then evaluate with follow-up CT PET scan if it shows good response then consider surgical evaluation and radiation evaluation. Echocardiogram done on 05/09/2019 showed ejection fraction 50-55%. Ms Gerard began her first cycle of chemotherapy on 05/31/2019. Follow-up CT PET scan done after 3 cycles of systemic therapy on 07/21/2019 showed left breast dermal uptake is improved, now SUV is 5.7 compared to 14.7 previously. The index left axillary lymph node now measure 1.7 cm and is FDG negative. Right hilar lymph nodes are now subcentimeter in size and FDG negative. And left level IV cervical node is now subcentimeter in size and has minimal FDG uptake. Came for follow-up, denies any specific complaints, now very pleased with her left breast healing and improvement, no more discharge from her left breast and wound is also healing well. No fever or chills, no nausea or vomiting, no diarrhea constipation, no shortness of breath, no peripheral neuropathy. Medications: Anti-Diarrheal 1 (2 mg) Tablet Oral daily PRN, Dexamethasone (4 mg) Tablet Oral Take as Directed, Diphenoxylate-Atropine 1 Tablet (of 2.5-0.025 mg) Oral four times a day PRN, Fluconazole 1 Tablet (of 100 mg) Oral daily, HYDROcodone-Acetaminophen 1 - 2 Tablet (of 5-325 mg) Oral q 4 hours PRN, Ibuprofen 2 - 3 Tablet (of 200 mg) Oral PRN, Klor-Con 10 1 Tablet (of 10 meq) Tablet, controlled release Oral daily, levoFLOXacin 1 Tablet (of 500 mg) Oral daily for 5 days, LORazepam 0.5 - 1 Tablet (of 1 mg) Oral t.i.d. PRN, magic mouthwash 2 mL Liquid t.i.d., Ondansetron 1 Tablet (of 4 mg) Tablet Dispersable Oral t.i.d. PRN, Prochlorperazine Maleate 1 (10 mg) Tablet Oral q 4 hours PRN, traMADol HCl 1 (50 mg) Tablet Oral t.i.d. PRN Allergies: No Known Allergies. Review of Systems: Review of Systems is not available for this patient. Vital Signs: Performed on Jul 30, 2019 09:55 Height - 65.00 in Weight - 249.2 lbs (HIGH) BSA - 2.17 sq.m BMI - 41.47 (HIGH) Temperature - 96.9 F (LOW) Pulse - 94 /min Respiration - 18 /min BP - 145/90 mm(hg) (HIGH) O2 Sat - 93 % (LOW) Pain - 0 Performance Status: 0 - Fully active, able to carry on all predisease activities without restrictions. (ECOG) Physical Examination: Respiratory - Lungs are clear, Cardiovascular - Regular rate and rhythm of heart, Extremities - No visible edema. Lab/Imaging: Test performed on Jul 11, 2019 07:45 Sodium 141 mmol/L Potassium 3.6 mmol/L Chloride 106 mmol/L CO2 23 mmol/L Anion Gap 15.6 BUN 7 mg/dL Creatinine 0.8 mg/dL Cr Clearance (Est) 137.58 mL/min eGFR 74.7 mL/min Glucose 163 mg/dL Calcium 9.5 mg/dL Protein, Total 6.1 g/dL Albumin 3.8 g/dL Globulin 2.3 g/dL Bilirubin, Total 0.3 mg/dL ALT (SGPT) 26 U/L AST (SGOT) 23 U/L Alkaline Phosphatase 68 IU/L Neutrophils 6.9 10 3/uL Eosinophils 0.0 10 3/uL Basophils 0.0 10 3/uL Neutrophil % 80.1 % Eosinophil % 0.0 % Basophils % 0.2 % Test performed on Jun 11, 2019 08:20 Magnesium 1.6 mg/dL Manual Bands % 50.0 % Manual Lymphs % 7 % Manual Monos % 9.0 % Metamyelocytes % 1.0 % Myelocytes % 1.0 % CBC Slide Review Slide Review Perform Manual Bands Abs 13.2 10 3/cmm Manual Monocytes Abs 2.4 10 3/cmm Impression: metastatic left breast cancer, with a left FDG positive axillary lymphadenopathy,and FDG positive right axillary lymphadenopathy, and left cervical level IV FDG positive lymph node per CT PET scan done on 05/05/2019 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 She has had port placement r(right internal jugular). discussed with Ms Gerard the CT PET scan findings, which showed metastatic disease to the bilateral axilla and level IVFDG positive left cervical lymph node. No other distant metastatic disease seen. Her echocardiogram shows ejection fraction 50-55%. recommended treatment with systemic therapy with pertuzumab/Herceptin/Taxotere every 3 weeks ???4-6 cycles and then evaluate with follow-up CT PET scan if it shows good response then consider surgical evaluation and radiation evaluation. Ms Gerard began her first cycle of chemotherapy on 05/31/2019. She did not receive Neulasta. Cycle 1 has been complicated thus far with persistent diarrhea and intermittent vomiting. As of day 15 the diarrhea and vomiting has subsided. Plan: Discussed with patient regarding her labs white blood count 11.2 hemoglobin 10.3 crit 33.2 platelets 477,000 CMP within normal limits and CT PET scan done on 07/21/2019 which showed excellent response to neoadjuvant therapy Clinically, patient is doing well, tolerating neoadjuvant therapy with Herceptin/docetaxel/perjeta but with expected side effects. Her follow-up CT PET scan showed excellent response with resolution of right axillary lymphadenopathy and left cervical lymph node also showed significant improvement. Including primary in the left breast. At this point we will consider adding carboplatin to the regimen, may improve response. Planning was to give her 3 cycles of chemotherapy and then CT PET scan if it shows complete response or clearance of metastatic lymphadenopathy then consider left modified radical mastectomy. Patient is considering breast reconstruction, patient will discuss with Dr. Montenegro regarding her options. We'll proceed with next dose of docetaxel/Herceptin/perjeta, with Neulasta support and the meantime we will obtain approval from her insurance regarding carboplatin AUC 5 every 3 weeks. All the side effect possible benefits associated with carboplatin especially nausea vomiting, hair loss, thrombocytopenia were discussed patient expressed understanding and accepted the plan. X Patient return to clinic in 2 weeks with CBC CMP Signed By: Annie Grijalva M.D. <<Signature on File>>
[2019-07-30] MEDS: pegfilgrastim 6 mg/0.6 mL Kit (onpro) SUBCUT (14:00)
== END 2019-08-09 23:59 | disposition home or self-care (01) ==
LOC: ONCMED 06:41
PROVIDERS: Family Provider Nurse Practitioner Family; PCP Nurse Practitioner Family; Visit Provider Internal Medicine Hematology & Oncology
DX: Z51.12 Encounter for antineoplastic immunotherapy (principal); C50.812 Malignant neoplasm of overlapping sites of left female breast; C77.8 Secondary and unspecified malignant neoplasm of lymph nodes of multiple regions; Z17.1 Estrogen receptor negative status [ER-]; Z76.89 Persons encountering health services in other specified circumstances; Z95.828 Presence of other vascular implants and grafts
CPT/HCPCS: 80053; 85025; 96367; 96372; 96413; 96417; 99214; J1100; J1200; J2469; J2505; J3490; J7050; J9171; J9306; J9355

== ENCOUNTER 2019-08-22 13:00 | Outpatient (RCR) | payer MEDICAID, SELFPAY ==
--- NOTE | 2019-08-22 | USCV_ITS ---
Samri Gerard Age: 53 Gender: F : 1965 Exam Date: 08/22/2019 11:25 Ordering Phys: Gina Dixon NP Technologist: Ney Hutchins Exam Location: [facility] [place] Indication: LT ARM PAIN AND SWELLING HISTORY: Upper extremity pain. PROCEDURES: Venous duplex imaging was performed in only the left upper extremity. The following venous structures were evaluated: internal jugular vein, subclavian vein, axillary vein, and brachial veins. In addition, the basilic vein, cephalic vein, radial vein, and ulnar vein. FINDINGS: No evidence of deep vein thrombosis or superficial thrombophlebitis in the left upper extremity. CONCLUSIONS No left upper extremity DVT. Dr. Yoli Weeks DO (Electronically Signed) Final Date: 22 Aug 2019 13:19 S
[2019-08-22 08:29] LABS: Basophils % 0.1 %; Hematocrit 31.4 % (37.0-47.0); Hemoglobin 9.6 g/dL (11.5-15.3); Lymphocytes # 1.8 10^3/uL (0.8-4.8); Lymphocytes % 13.7 %; Mean Corpuscular HGB Conc 30.6 g/dL (30.0-36.0); Mean Corpuscular Hemoglobin 29.9 pg (28.0-34.0); Mean Corpuscular Volume 97.8 fL (81-99); Mean Platelet Volume 9.9 fL (7.4-10.4); Monocytes # 0.2 10^3/uL (0.2-0.9); Monocytes % 1.2 %; Neutrophils % 84.5 %; Nucleated Red Blood Cells % 0 %; Platelet Count 526 10^3/cmm (130-400); Red Blood Count 3.21 10^6/uL (4.1-5.3); Red Cell Distribution Width 18.2 % (12.1-15.1)
[2019-08-22 08:45] LABS: Alanine Aminotransferase 26 U/L (0-33); Albumin Level 3.8 g/dL (3.5-5.2); Alkaline Phosphatase 62 IU/L (35-105); Anion Gap 14.3 (5-19); Aspartate Amino Transferase 17 U/L (0-32); Blood Urea Nitrogen 13 mg/dL (6-20); Calcium 9.7 mg/dL (8.5-10.5); Carbon Dioxide 24 mmol/L (22-29); Chloride 105 mmol/L (98-107); Globulin 2.7 g/dL (1.3-4.6); Glomerular Filtration Rate 87.2 mL/min (90-130); Glucose 144 mg/dL (65-115); Osmolality Calculated 289 mOsm/kg (285-295); Potassium 3.3 mmol/L (3.5-5.1); Sodium 140 mmol/L (136-145); Total Bilirubin 0.2 mg/dL (0.15-1.2); Total Protein 6.5 g/dL (6.6-8.7)
[2019-08-22] MEDS: acetaminophen 325 mg Tablet 650 MG PO (11:45)
[2019-08-22] MEDS: sodium chloride 0.9% 250 ML 75 ML IV (11:45)
--- NOTE | 2019-08-22 13:01 | ONC FU_ITS ---
[facility] Patient Note Patient: Samir Gerard Unit #: [id number]: 1965 Dictated By: Barney AriasDate of Visit: August 22, 2019 Onc MED Follow-Up/Prog Note Chief Complaint: inflammatory carcinoma of left breast cancer History of Present Illness: Ms. Gerard is a 53-year-old female with history of left breast mass. She underwent biopsy about 20 years ago and it was negative, showed fibrous tissue only. Since then, she had no more follow-up mammograms until about 2 months ago when she went to emergency room with left breast 'inflammation'and progressive swelling and left axillary lymphadenopathy. A,t that time she was referred to oncology but did not follow through, but continue to follow with primary care. Eventually on 04/10/2019 she was referred to surgery. Dr. Montenegro evaluated her and she underwent left breast biopsy on 04/12/2019.v The biopsy reported invasive carcinoma, high-grade with dermal lymphatics involvement and perineural invasion. Identified also involvement of dermis e.g. diagnosed with inflammatory carcinoma of left breast. HER-2/eduar 3+ positive, ER less than 1% IA less than 1% both were negative; Ki-67 was high @ 56. She presented with complaints of clear fluid oozing from the left breast skin and nipple as well as left axillary fullness. The left breast was swollen with overlying skin changes including under left axilla. Family history significant for mother with breast cancer and maternal aunt with breast cancer. She began menses patient at age 10 and has had no pregnancies. Ms Gerard has chronic discomfort/pain in her left upper back and left axilla. And whole left breast was swollen with overlying skin changes with off-and-on serosanguineous discharge from the nipple and skin. follow-up CT PET scan done on 05/05/2019 Showed 2 sites of FDG positive nodular dermal thickening in the left breast. Dominant lesion measures 2.2 x 3.4 cm with SUV of 14.7. And second lower inner quadrant lesion measured 1.4 cm with SUV of 9.7. Left axillary lymph nodes enlarged and FDG positive with index node measured 2.4 cm with SUV of 6.2. Additionally there are smaller but FDG positive lymph nodes. A left level IV cervical node measuring 1 cm has SUV of 4.8 indicating distant metastatic disease. Right axillary lymph node FDG positive, consistent with metastatic disease. Dr Grijalva discussed with Ms Gerard the CT PET scan findings, which showed metastatic disease to the bilateral axilla and level IVFDG positive left cervical lymph node. No other distant metastatic disease seen. Her echocardiogram shows ejection fraction 50-55%. Her recommended treatment was systemic therapy with pertuzumab/Herceptin/Taxotere every 3 weeks ???4-6 cycles and then evaluate with follow-up CT PET scan if it shows good response then consider surgical evaluation and radiation evaluation. Echocardiogram done on 05/09/2019 showed ejection fraction 50-55%. Ms Gerard began her first cycle of chemotherapy on 05/31/2019. Follow-up CT PET scan done after 3 cycles of systemic therapy on 07/21/2019 showed left breast dermal uptake is improved, now SUV is 5.7 compared to 14.7 previously. The index left axillary lymph node now measure 1.7 cm and is FDG negative. Right hilar lymph nodes are now subcentimeter in size and FDG negative. And left level IV cervical node is now subcentimeter in size and has minimal FDG uptake. Ms. Gerard has now completed 4 cycles of docetaxel Herceptin Perjeta. She is here today for follow-up and consideration of cycle 5. She states overall she is doing pretty good. She states she had some diarrhea 6 to 7 days out after the last treatment but was controlled easily with Imodium. She notes she has had some mouth sore/significant tenderness after treatment. She states the Magic mouthwash does help but does not relieve the problems completely she has had some minor sores in her mouth as well. She states the sores make it difficult to eat or drink. They are currently resolved. She states that her left hand is swollen. 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 However it is noted that her whole left arm is swollen. She denies any trauma, bug bites. Any areas of drainage or warmth. She states she is had no nausea. She denies any fever or chills. She denies any cough or shortness of breath. She states overall her diarrhea is good. She has had no lower extremity swelling no swelling in the right arm. She denies any neuropathy symptoms at this time. Her ECOG is 1. Past Medical History: Anxiety Depression Gastroesophageal reflux disease Past Surgical History: Right Internal Juglar Port A Cath-Dr Roberson ([facility] [place]) in 2019 Left breast excisional biopsy in 2019 Left breast biopsy in 1999 Allergies: No Known Allergies. Medications: Allergy Relief 1 Tablet (of 4 mg) Oral daily PRN Anti-Diarrheal 1 (2 mg) Tablet Oral daily PRN Dexamethasone (4 mg) Tablet Oral Take as Directed Diphenoxylate-Atropine 1 Tablet (of 2.5-0.025 mg) Oral four times a day PRN Fluconazole 1 Tablet (of 100 mg) Oral daily HYDROcodone-Acetaminophen 1 - 2 Tablet (of 5-325 mg) Oral q 4 hours PRN Ibuprofen 2 - 3 Tablet (of 200 mg) Oral PRN Klor-Con 10 1 Tablet (of 10 meq) Tablet, controlled release Oral daily levoFLOXacin 1 Tablet (of 500 mg) Oral daily for 5 days LORazepam 0.5 - 1 Tablet (of 1 mg) Oral t.i.d. PRN magic mouthwash 2 mL Liquid t.i.d. Ondansetron 1 Tablet (of 4 mg) Tablet Dispersable Oral t.i.d. PRN Prochlorperazine Maleate 1 (10 mg) Tablet Oral q 4 hours PRN traMADol HCl 1 (50 mg) Tablet Oral t.i.d. PRN Family History: Ms. Gerard's mother at age 75: breast cancer. Ms. Gerard's father is alive: lung cancer. 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 Ms. Gerard has never smoked. She has no history of drinking. Ms. Gerard reports the following support systems: lives alone, lives in own house, supportive family/friends willing to assist with needs, and adequate transportation available for expected visits. Her diet consists of regular meals. She indicates her activity level as: regular exercise. Review Of Symptoms: Constitutional Denies fevers, chills, night sweats. She states she feels much better this week. Swelling in left arm-see above. Allergic/Immunologic No reactions. Eyes Denies significant visual changes. No diplopia. No amaurosis. ENMT Denies changes in hearing, sore throat, mouth sores, difficulty or changes in swallowing ability, and/or sinus drainage. Mouth is tender and things taste bad -for the first couple of days after chemo. Magic mouthwash does help some. Hematologic/Lymphatic Denies easy bruising or bleeding. The patient denies any tender or palpable lymph nodes. Respiratory Denies dyspnea on exertion, chest pain, cough or hemoptysis. Denies orthopnea. Cardiovascular Denies anginal chest pain, palpitations or orthopnea. Gastrointestinal Denies nausea, vomiting, diarrhea, GI bleeding, or constipation. Denies change in bowel habits and/or stool color, no heartburn or early satiety. She states she had a little loose stool the last couple of days but no diarrhea . Genitourinary (F) No hematuria, hesitancy, incontinence, vaginal bleeding, discharge or other problems with urination. Musculoskeletal Denies joint pain, swelling or redness. No decreased range of motion. Integumentary Denies chronic rashes, inflammation, ulcerations or skin changes. Neurologic Denies headache, blurred vision, and no areas of focal weakness or numbness. Normal gait. No sensory problems. Psychiatric Denies insomnia, depression, aba or mood swings. Vital Signs: Performed on August 22, 2019 10:03 Height - 65.00 in Weight - 247.2 lbs (LOW) BSA - 2.16 sq.m BMI - 41.14 (HIGH) Temperature - 97.2 F (LOW) Pulse - 83 /min Respiration - 19 /min BP - 150/84 mm(hg) (HIGH) O2 Sat - 98 % Pain - 0,1 - No physically strenuous activity, but ambulatory and able to carry out light or sedentary work (e.g. office work, light house work). (ECOG) Physical Examination: Constitutional Alert, oriented, no acute distress. Skin pink, warm and dry. Head Normocephalic; atraumatic. Eyes Conjunctivae and sclerae are clear and without icterus. Pupils are reactive and equal. ENMT No oral exudates, ulcers, masses, thrush or mucositis. Oropharynx clear. Tongue normal. Neck Supple without masses or thyromegaly. No jugular venous distension. Hematologic/Lymphatic No petechiae or purpura. No tender or palpable lymph nodes in the cervical or supraclavicular areas. Respiratory Lungs are clear to auscultation without rhonchi or wheezing. Cardiovascular Regular rate and rhythm of heart without murmurs,clicks, gallops or rubs. Chest Chest is symmetric without chest wall deformities. Right internal jugular port a cath insertion site is unremarkable. Breasts Abdomen Non-tender, non-distended, no masses or ascites. Good bowel sounds noted in all quads. No guarding or rebound tenderness. No pulsatile masses. Back/Spine Non-tender to palpation. Extremities No visible deformities, no cyanosis, clubbing. Left upper and lower arm, wrist and hand is noted to be significant swollen compared to the right arm. She does have some redness in the inner right wrist area, but no definite lesion or trauma/bite. The arm is slightly warmer than the right. Musculoskeletal No tenderness or swelling, normal range of motion without obvious weakness. Integumentary No rashes or lesions. Neurologic No sensory or motor deficits, normal cerebellar function, normal gait. Psychiatric Alert and oriented times three. Coherent speech. Verbalizes understanding of our discussions today. Laboratory:Test performed on August 22, 2019 08:11 Sodium 140 mmol/L Potassium 3.3 mmol/L Chloride 105 mmol/L CO2 24 mmol/L Anion Gap 14.3 BUN 13 mg/dL Creatinine 0.7 mg/dL Cr Clearance (Est) 163.9500 mL/min eGFR 87.2 mL/min Glucose 144 mg/dL Calcium 9.7 mg/dL Protein, Total 6.5 g/dL Albumin 3.8 g/dL Globulin 2.7 g/dL Bilirubin, Total 0.2 mg/dL ALT (SGPT) 26 U/L AST (SGOT) 17 U/L Alkaline Phosphatase 62 IU/L WBC 13.0 10 3/uL RBC 3.21 10 6/uL HGB 9.6 g/dL HCT 31.4 % MCV 97.8 fL MCH 29.9 pg MCHC 30.6 g/dL RDW 18.2 % Platelet Count 526 10 3/cmm MPV 9.9 fL Neutrophils 11.0 10 3/uL Lymphocytes 1.8 10 3/uL Monocytes 0.2 10 3/uL Eosinophils 0.0 10 3/uL Basophils 0.0 10 3/uL Neutrophil % 84.5 % Lymphocyte % 13.7 % Monocyte % 1.2 % Eosinophil % 0.0 % Basophils % 0.1 % Test performed on Jun 11, 2019 08:20 Magnesium 1.6 mg/dL Manual Bands % 50.0 % Manual Lymphs % 7 % Manual Monos % 9.0 % Metamyelocytes % 1.0 % Myelocytes % 1.0 % CBC Slide Review Slide Review Perform Manual Bands Abs 13.2 10 3/cmm Manual Monocytes Abs 2.4 10 3/cmm Impression: metastatic left breast cancer, with a left FDG positive axillary lymphadenopathy,and FDG positive right axillary lymphadenopathy, and left cervical level IV FDG positive lymph node per CT PET scan done on 05/05/2019 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 She has had port placement r(right internal jugular). discussed with Ms Gerard the CT PET scan findings, which showed metastatic disease to the bilateral axilla and level IVFDG positive left cervical lymph node. No other distant metastatic disease seen. Her echocardiogram shows ejection fraction 50-55%. recommended treatment with systemic therapy with pertuzumab/Herceptin/Taxotere every 3 weeks ???4-6 cycles and then evaluate with follow-up CT PET scan if it shows good response then consider surgical evaluation and radiation evaluation. Ms Gerard began her first cycle of chemotherapy on 05/31/2019. She did not receive Neulasta. Cycle 1 has been complicated thus far with persistent diarrhea and intermittent vomiting. As of day 15 the diarrhea and vomiting has subsided. Her follow-up CT PET scan showed excellent response with resolution of right axillary lymphadenopathy and left cervical lymph node also showed significant improvement. Including primary in the left breast. At this point we will consider adding carboplatin to the regimen, may improve response. Planning was to give her 3 cycles of chemotherapy and then CT PET scan if it shows complete response or clearance of metastatic lymphadenopathy then consider left modified radical mastectomy. Patient is considering breast reconstruction, patient will discuss with Dr. Montenegro regarding her options. Plan: Proceed with cycle 5 docetaxel, Herceptin, Perjeta and will add carboplatin AUC of 5 today this will be the first cycle of the carboplatin. 2. Steroid compliance confirmed. 3. Continue current anti-medics as they are working well. 4. Today's labs reviewed in detail discussed with Ms. Gerard and a copy was given to her. WBC 13, hemoglobin 9.6, platelets 526,000 ANC is 11,000 (she did have Neulasta on July 30, 2019) potassium 3.3 creatinine 0.7 random glucose 144 LFTs are normal. We will have her increase her potassium intake for the low potassium. She states she had a little loose stools over the last day or so and that may be why the potassium is lower. She states also she had not been eating her potassium rich foods like she has in the past either. She states she was just getting tired of them. 5. She will continue symptomatic treatment as before as it is working well especially with the Imodium and the loose stool/diarrhea. 6. We will ask for a LV function with her next visit as her last echocardiogram was in April 2019. This is for the Herceptin/Perjeta monitoring. 7. We will plan to see her back in 3 weeks with CBC, CMP and follow-up for consideration of cycle 6 docetaxel, Herceptin/Perjeta and cycle 2 carboplatin. 8. She continues the Neulasta support as she had significant neutropenia with an ANC of 400 on day 8 of cycle 2. She is responded well to Neupogen and then Neulasta. She is tolerating it well. 9. I did advise Ms. Gerard to go ahead and do acyclovir 800 mg 4 times a day for a week and Diflucan 100 mg p.o. daily. After she completes the acyclovir for 1 week she will go to twice daily until her prescription is complete. Hopefully this will cover her until she is done with the current plan of care in regards to the chemotherapy. 10. Ms. Gerard was instructed to contact us in the interim should questions or problems arise. Signed By: Barney Arias-, DANYELL Grijalva MD <<Signature on File>>
[2019-08-22] MEDS: pegfilgrastim 6 mg/0.6 mL Kit (onpro) SUBCUT (16:45)
== END 2019-09-09 23:59 | disposition home or self-care (01) ==
LOC: RAD 13:00
PROVIDERS: Internal Medicine Hematology & Oncology; PCP Nurse Practitioner Family; Visit Provider Nurse Practitioner
DX: Z51.12 Encounter for antineoplastic immunotherapy (principal); Z51.11 Encounter for antineoplastic chemotherapy; C50.812 Malignant neoplasm of overlapping sites of left female breast; C77.8 Secondary and unspecified malignant neoplasm of lymph nodes of multiple regions; M79.89 Other specified soft tissue disorders; Z79.899 Other long term (current) drug therapy; D70.1 Agranulocytosis secondary to cancer chemotherapy; K52.1 Toxic gastroenteritis and colitis; T45.1X5A Adverse effect of antineoplastic and immunosuppressive drugs, initial encounter; E87.6 Hypokalemia; Z17.1 Estrogen receptor negative status [ER-]; Z95.828 Presence of other vascular implants and grafts; Z79.52 Long term (current) use of systemic steroids
CPT/HCPCS: 80053; 85025; 93971; 96367; 96372; 96413; 96417; 99214; J1200; J1453; J2505; J3490; J7040; J7050; J9045; J9171; J9306; J9355

== ENCOUNTER 2019-09-26 11:55 | Outpatient (CLI) | payer MEDICAID, SELFPAY ==
--- NOTE | 2019-09-26 11:59 | USCV_ITS ---
Samir Gerrad Age: 53 Gender: F : 1965 Exam Date: 09/26/2019 13:02 Ordering Phys: Gina Dixon NP Technologist: Freya Greene Exam Location: [facility] – [place] Indication: HIGH RISK DRUG HERCEPTIN BP: / HR: 71 Rhythm: Sinus Technical Quality: Technically difficult study MEASUREMENTS (Male / Female) Normal Values 2D ECHO LV Diastolic Diameter PLAX 5.2 cm 4.2 - 5.9 / 3.9 - 5.3 cm LV Systolic Diameter PLAX 4.1 cm LV Chamber Size 3.5 cm IVS Diastolic Thickness 0.8 cm 0.6 - 1.0 / 0.6 - 0.9 cm IVS Systolic Thickness 1.2 cm LVPW Diastolic Thickness 1.2 cm 0.6 - 1.0 / 0.6 - 0.9 cm LVPW Systolic Thickness 1.3 cm RV Chamber Size 2.6 cm LVOT Diameter 2.0 cm LV Ejection Fraction 2D Teich 40.3 % LV Ejection Fraction MOD 2C 27.8 % LV Ejection Fraction 2C AL 32.5 % LA Diameter 3.6 cm LA Width 2.8 cm LA Height 4.2 cm RA Width 3.3 cm RA Height 4.0 cm Aorta at Sinotubular Diameter 3.8 cm M-MODE LV Diastolic Diameter MM 5.8 cm 4.2 - 5.9 / 3.9 - 5.3 cm LV Systolic Diameter MM 4.4 cm LV Ejection Fraction MM Teich 47.2 % IVS Diastolic Thickness MM 0.9 cm 0.6 - 1.0 / 0.6 - 0.9 cm IVS Systolic Thickness MM 1.4 cm LVPW Diastolic Thickness MM 1.7 cm 0.6 - 1.0 / 0.6 - 0.9 cm LVPW Systolic Thickness MM 1.8 cm RV Diastolic Diameter MM 1.6 cm Aortic Annulus Diameter 4.0 cm LA Ao Ratio MM 0.9 MV E Point Septal Separation 0.8 cm FINDINGS Left Ventricle Normal left ventricular cavity size. Probably low normal left ventricular systolic function. Left ventricle ejection fraction estimated at 50%. Although no diagnostic regional wall motion abnormality could be identified, this possibility cannot be completely excluded based on the study. Abnormal septal motion. Right Ventricle Normal right ventricular size and systolic function. Right Atrium Normal right atrial size. Left Atrium Normal left atrial size. Mitral Valve Structurally normal mitral valve. Aortic Valve Structurally normal trileaflet aortic valve. Tricuspid Valve Structurally normal tricuspid valve. Pulmonic Valve Structurally normal pulmonic valve. Pericardium No pericardial effusion. Aorta There seems to be effacement of sinotubular junction. Ascending aorta measured at 38 mm. CONCLUSIONS 1. This is a technically difficult and limited study. 2. Normal left ventricular cavity size. Probably low normal left ventricular systolic function. Left ventricle ejection fraction estimated at 50%. Although no diagnostic regional wall motion abnormality could be identified, this possibility cannot be completely excluded based on the study. 3. Normal right ventricular size and systolic function. 4. Repeat study with ultrasound enhancing agent is recommended for complete assessment of left ventriclular function. Brook Serrato MD (Electronically Signed) Final Date: 27 September 2019 16:11 S
--- NOTE | 2019-09-26 12:04 | CT_ITS ---
WS: [id number] CT chest w con* [id number] REASON FOR EXAM: BREAST CANCER/ATTN:TO LEFT AXILLA IV CONTRAST ADMINISTERED: Omnipaque 300, 95 mL. . TOTAL EXAM DLP: 942.[address] scans at [facility] use at least one of these dose optimization techniques: automat ed exposure control; mA and/or kV adjustment per patient size (includes targeted exams where dose is matched to clinical indication); or iterative reconstruction. FINDINGS: The thyroid gland appear to be normal. The supra clavicular area shows no masses or lymphadenopathy. There are small lymph nodes seen in the left axilla but no major disease is noted. The aorta was normal no aneurysms. The heart chambers were all normal. The pulmonary vasculature was normal. The perfusion changes in both lung mcghee are normal. The lung mcghee are slightly hypoaerated. The gallbladder shows a solitary gallstone. The liver was normal. The adrenal glands were both normal. The left breast shows a density greater than the right breast a mass is not totally ruled out. CT/CT chest w con* [id number] IMPRESSION: The left axilla did not suggest masses or lymphadenopathy There is thickening of the breast fissure on the left. A solitary gallstone is noted. The lung mcghee are mildly hypoaerated.
[2019-09-26] MEDS: iohexol 300 mg/mL 100 mL Btl IV (13:05)
== END 2019-09-26 11:56 | disposition home or self-care (01) ==
LOC: RAD 11:56
PROVIDERS: PCP Nurse Practitioner Family; Visit Provider Internal Medicine Hematology & Oncology
DX: C50.812 Malignant neoplasm of overlapping sites of left female breast (principal); Z79.899 Other long term (current) drug therapy
CPT/HCPCS: 71260; 93308

== ENCOUNTER 2019-10-04 06:45 | Outpatient (RCR) | payer MEDICAID, SELFPAY ==
[2019-09-12] MEDS: pegfilgrastim 6 mg/0.6 mL Kit (onpro) SUBCUT (02:45)
[2019-09-12 08:28] LABS: Hematocrit 31.4 % (37.0-47.0); Hemoglobin 9.8 g/dL (11.5-15.3); Lymphocytes # 1.6 10^3/uL (0.8-4.8); Lymphocytes % 16.5 %; Mean Corpuscular HGB Conc 31.2 g/dL (30.0-36.0); Mean Corpuscular Hemoglobin 30.8 pg (28.0-34.0); Mean Corpuscular Volume 98.7 fL (81-99); Mean Platelet Volume 9.2 fL (7.4-10.4); Monocytes # 0.2 10^3/uL (0.2-0.9); Monocytes % 1.6 %; Neutrophils # 7.6 10^3/uL (1.8-7.7); Neutrophils % 81.3 %; Nucleated Red Blood Cells % 0 %; Platelet Count 445 10^3/cmm (130-400); Red Blood Count 3.18 10^6/uL (4.1-5.3); Red Cell Distribution Width 18.3 % (12.1-15.1); White Blood Count 9.4 10^3/uL (4.0-10.0)
[2019-09-12 08:40] LABS: Alanine Aminotransferase 23 U/L (0-33); Albumin Level 3.8 g/dL (3.5-5.2); Alkaline Phosphatase 66 IU/L (35-105); Anion Gap 17.5 (5-19); Aspartate Amino Transferase 20 U/L (0-32); Blood Urea Nitrogen 15 mg/dL (6-20); Calcium 9.2 mg/dL (8.5-10.5); Carbon Dioxide 25 mmol/L (22-29); Chloride 102 mmol/L (98-107); Globulin 2.7 g/dL (1.3-4.6); Glomerular Filtration Rate 74.7 mL/min (90-130); Glucose 148 mg/dL (65-115); Osmolality Calculated 291 mOsm/kg (285-295); Potassium 3.5 mmol/L (3.5-5.1); Sodium 141 mmol/L (136-145); Total Bilirubin 0.2 mg/dL (0.15-1.2); Total Protein 6.5 g/dL (6.6-8.7)
[2019-09-12] MEDS: acetaminophen 325 mg Tablet 650 MG PO (10:15)
[2019-09-12] MEDS: sodium chloride 0.9% 250 ML 75 ML IV (10:55)
--- NOTE | 2019-09-12 17:25 | ONC FU_ITS ---
Dr. Grijalva follow up note Patient: Samir Gerard Unit #: [id number]: 1965 Dicatated By: Annie Grijalva M.D.Date of Visit:Sep 12, 2019 Onc Med Follow-up/Prog Note History of Present Illness: Ms. Gerard is a 53-year-old female with history of left breast mass. She underwent biopsy about 20 years ago and it was negative, showed fibrous tissue only. Since then, she had no more follow-up mammograms until about 2 months ago when she went to emergency room with left breast 'inflammation'and progressive swelling and left axillary lymphadenopathy. A,t that time she was referred to oncology but did not follow through, but continue to follow with primary care. Eventually on 04/10/2019 she was referred to surgery. Dr. Montenegro evaluated her and she underwent left breast biopsy on 04/12/2019.v The biopsy reported invasive carcinoma, high-grade with dermal lymphatics involvement and perineural invasion. Identified also involvement of dermis e.g. 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 She presented with complaints of clear fluid oozing from the left breast skin and nipple as well as left axillary fullness. The left breast was swollen with overlying skin changes including under left axilla. Family history significant for mother with breast cancer and maternal aunt with breast cancer. She began menses patient at age 10 and has had no pregnancies. Ms Gerard has chronic discomfort/pain in her left upper back and left axilla. And whole left breast was swollen with overlying skin changes with off-and-on serosanguineous discharge from the nipple and skin. follow-up CT PET scan done on 05/05/2019 Showed 2 sites of FDG positive nodular dermal thickening in the left breast. Dominant lesion measures 2.2 x 3.4 cm with SUV of 14.7. And second lower inner quadrant lesion measured 1.4 cm with SUV of 9.7. Left axillary lymph nodes enlarged and FDG positive with index node measured 2.4 cm with SUV of 6.2. Additionally there are smaller but FDG positive lymph nodes. A left level IV cervical node measuring 1 cm has SUV of 4.8 indicating distant metastatic disease. Right axillary lymph node FDG positive, consistent with metastatic disease. Dr Grijalva discussed with Ms Gerard the CT PET scan findings, which showed metastatic disease to the bilateral axilla and level IVFDG positive left cervical lymph node. No other distant metastatic disease seen. Her echocardiogram shows ejection fraction 50-55%. Her recommended treatment was systemic therapy with pertuzumab/Herceptin/Taxotere every 3 weeks ???4-6 cycles and then evaluate with follow-up CT PET scan if it shows good response then consider surgical evaluation and radiation evaluation. Echocardiogram done on 05/09/2019 showed ejection fraction 50-55%. Ms Gerard began her first cycle of chemotherapy on 05/31/2019. Follow-up CT PET scan done after 3 cycles of systemic therapy on 07/21/2019 showed left breast dermal uptake is improved, now SUV is 5.7 compared to 14.7 previously. The index left axillary lymph node now measure 1.7 cm and is FDG negative. Right hilar lymph nodes are now subcentimeter in size and FDG negative. And left level IV cervical node is now subcentimeter in size and has minimal FDG uptake. Came for follow-up, complaining of persistent left arm swelling, as per patient recently underwent venous Doppler study which showed no evidence of DVT. Patient denies any left axillary fullness. Denies any trauma to her left arm. Denies any pain in her left arm but discomfort. She has Port-A-Cath in the right chest wall. Denies any shortness of breath, denies any facial swelling, denies any palpitation, denies any fever chills, denies any lower extremity edema, tolerating neoadjuvant chemotherapy with carboplatin/docetaxel/Herceptin/perjeta well Medications: Allergy Relief 1 Tablet (of 4 mg) Oral daily PRN, Dexamethasone (4 mg) Tablet Oral Take as Directed, Diphenoxylate-Atropine 1 Tablet (of 2.5-0.025 mg) Oral four times a day PRN, Fluconazole 1 Tablet (of 100 mg) Oral daily, HYDROcodone-Acetaminophen 1 - 2 Tablet (of 5-325 mg) Oral q 4 hours PRN, Ibuprofen 2 - 3 Tablet (of 200 mg) Oral PRN, Klor-Con 10 1 Tablet (of 10 meq) Tablet, controlled release Oral daily, LORazepam 0.5 - 1 Tablet (of 1 mg) Oral t.i.d. PRN, magic mouthwash 2 mL Liquid t.i.d., Ondansetron 1 Tablet (of 4 mg) Tablet Dispersable Oral t.i.d. PRN, Prochlorperazine Maleate 1 (10 mg) Tablet Oral q 4 hours PRN, traMADol HCl 1 (50 mg) Tablet Oral t.i.d. PRN Allergies: No Known Allergies. Review of Systems: Review of Systems is not available for this patient. Vital Signs: Performed on Sep 12, 2019 10:08 Height - 65.00 in Weight - 249.6 lbs (HIGH) BSA - 2.17 sq.m BMI - 41.54 (HIGH) Temperature - 97.1 F (LOW) Pulse - 133 /min (HIGH) Respiration - 20 /min BP - 145/83 mm(hg) (HIGH) O2 Sat - 97 % Pain - 0 Performance Status: 0 - Fully active, able to carry on all predisease activities without restrictions. (ECOG) Physical Examination: Respiratory - Lungs are clear to auscultation, Cardiovascular - Regular rate and rhythm of heart, Breasts - left breast, swelling is resolved, skin lesion are improving no more nipple discharge, Extremities - no lower extremity edema. ^but left upper arm showed persistent swelling, nonpitting edema, no skin changes, nontender] Lab/Imaging: Test performed on Sep 12, 2019 08:13 Sodium 141 mmol/L Potassium 3.5 mmol/L Chloride 102 mmol/L CO2 25 mmol/L Anion Gap 17.5 BUN 15 mg/dL Creatinine 0.8 mg/dL Cr Clearance (Est) 143.4600 mL/min eGFR 74.7 mL/min Glucose 148 mg/dL Calcium 9.2 mg/dL Protein, Total 6.5 g/dL Albumin 3.8 g/dL Globulin 2.7 g/dL Bilirubin, Total 0.2 mg/dL ALT (SGPT) 23 U/L AST (SGOT) 20 U/L Alkaline Phosphatase 66 IU/L WBC 9.4 10 3/uL RBC 3.18 10 6/uL HGB 9.8 g/dL HCT 31.4 % MCV 98.7 fL MCH 30.8 pg MCHC 31.2 g/dL RDW 18.3 % Platelet Count 445 10 3/cmm MPV 9.2 fL Neutrophils 7.6 10 3/uL Lymphocytes 1.6 10 3/uL Monocytes 0.2 10 3/uL Eosinophils 0.0 10 3/uL Basophils 0.0 10 3/uL Neutrophil % 81.3 % Lymphocyte % 16.5 % Monocyte % 1.6 % Eosinophil % 0.0 % Basophils % 0.0 % Test performed on Jun 11, 2019 08:20 Magnesium 1.6 mg/dL Manual Bands % 50.0 % Manual Lymphs % 7 % Manual Monos % 9.0 % Metamyelocytes % 1.0 % Myelocytes % 1.0 % CBC Slide Review Slide Review Perform Manual Bands Abs 13.2 10 3/cmm Manual Monocytes Abs 2.4 10 3/cmm Impression: metastatic left breast cancer, with a left FDG positive axillary lymphadenopathy,and FDG positive right axillary lymphadenopathy, and left cervical level IV FDG positive lymph node per CT PET scan done on 05/05/2019 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 She has had port placement r(right internal jugular). discussed with Ms Gerard the CT PET scan findings, which showed metastatic disease to the bilateral axilla and level IVFDG positive left cervical lymph node. No other distant metastatic disease seen. Her echocardiogram shows ejection fraction 50-55%. recommended treatment with systemic therapy with pertuzumab/Herceptin/Taxotere every 3 weeks ???4-6 cycles and then evaluate with follow-up CT PET scan if it shows good response then consider surgical evaluation and radiation evaluation. Ms Gerard began her first cycle of chemotherapy on 05/31/2019. She did not receive Neulasta. Cycle 1 has been complicated thus far with persistent diarrhea and intermittent vomiting. As of day 15 the diarrhea and vomiting has subsided. Her follow-up CT PET scan showed excellent response with resolution of right axillary lymphadenopathy and left cervical lymph node also showed significant improvement. Including primary in the left breast. At this point we will consider adding carboplatin to the regimen, may improve response. Planning was to give her 3 cycles of chemotherapy and then CT PET scan if it shows complete response or clearance of metastatic lymphadenopathy then consider left modified radical mastectomy. Patient is considering breast reconstruction, patient will discuss with Dr. Montenegro regarding her options. Plan: Discussed with patient regarding her labs white blood count 9.4 hemoglobin 9.8 hematocrit 31.4 platelets 445,000 CMP within normal limits Clinically, patient is doing reasonably well, tolerating neoadjuvant chemotherapy with carboplatin/Taxotere/Herceptin/perjeta well but with expected side effect, we'll proceed with final cycle #6 dose today and then refer her to surgery for evaluation once her blood counts recover, she will return to clinic in 2 weeks with CBC CMP As far as left arm swelling is concern for venous Doppler study was negative for DVT, could be lymphedema but no palpable lymph nodes in left axilla, her left breast continued to show improvement with neoadjuvant therapy. At this point we'll consider CT scan of chest to rule out intrathoracic pathology causing left upper extremity swelling. Patient was advised to evaluate left home when she is in bed, that may improve her swelling. Signed By: Annie Grijalva M.D. <<Signature on File>>
[2019-09-28 09:37] LABS: Basophils % 0.1 %; Hematocrit 32.2 % (37.0-47.0); Hemoglobin 10.1 g/dL (11.5-15.3); Lymphocytes # 2.6 10^3/uL (0.8-4.8); Lymphocytes % 36.4 %; Mean Corpuscular HGB Conc 31.4 g/dL (30.0-36.0); Mean Corpuscular Hemoglobin 29.8 pg (28.0-34.0); Mean Platelet Volume 9.9 fL (7.4-10.4); Monocytes # 0.7 10^3/uL (0.2-0.9); Monocytes % 10.5 %; Neutrophils # 3.7 10^3/uL (1.8-7.7); Neutrophils % 52.2 %; Nucleated Red Blood Cells % 0 %; Platelet Count 188 10^3/cmm (130-400); Red Blood Count 3.39 10^6/uL (4.1-5.3); Red Cell Distribution Width 16.2 % (12.1-15.1); White Blood Count 7.1 10^3/uL (4.0-10.0)
--- NOTE | 2019-09-28 09:46 | USCV_ITS ---
Samir Gerard Age: 53 Gender: F : 1965 Exam Date: 09/28/2019 09:57 Ordering Phys: Annie Grijalva MD Technologist: Ney Hutchins [place] [facility] [place]: HIGH RISK MEDS BP: / HR: 98 Rhythm: Sinus Technical Quality: Good MEASUREMENTS (Male / Female) Normal Values 2D ECHO LV Diastolic Diameter PLAX 4.9 cm 4.2 - 5.9 / 3.9 - 5.3 cm LV Systolic Diameter PLAX 3.3 cm IVS Diastolic Thickness 1.1 cm 0.6 - 1.0 / 0.6 - 0.9 cm IVS Systolic Thickness 1.3 cm LVPW Diastolic Thickness 1.0 cm 0.6 - 1.0 / 0.6 - 0.9 cm LVPW Systolic Thickness 1.3 cm LV Ejection Fraction 2D Teich 59.6 % LV Ejection Fraction MOD 2C 64.3 % LV Ejection Fraction 2C AL 62.9 % M-MODE LV Diastolic Diameter MM 5.4 cm 4.2 - 5.9 / 3.9 - 5.3 cm LV Systolic Diameter MM 4.0 cm LV Ejection Fraction MM Teich 51.5 % IVS Diastolic Thickness MM 0.9 cm 0.6 - 1.0 / 0.6 - 0.9 cm IVS Systolic Thickness MM 1.4 cm LVPW Diastolic Thickness MM 1.0 cm 0.6 - 1.0 / 0.6 - 0.9 cm LVPW Systolic Thickness MM 1.5 cm RV Diastolic Diameter MM 1.8 cm FINDINGS Left Ventricle Right Ventricle Right Atrium Left Atrium Mitral Valve Aortic Valve Tricuspid Valve Pulmonic Valve Pericardium Aorta CONCLUSIONS 1. This is a limited study with ultrasound enhancing agent (Optison). 2. Normal left ventricular cavity size. Low normal left ventricular systolic function. Left ventricular ejection fraction estimated at 55%. No regional wall motion abnormality. There is possible septal bounce. 3. Normal right ventricular size and systolic function. 4. No evidence of pericardial effusion. Brook Serrato MD (Electronically Signed) Final Date: 28 September 2019 15:24 S
[2019-09-28 10:15] LABS: Alanine Aminotransferase 57 U/L (0-33); Albumin Level 3.8 g/dL (3.5-5.2); Alkaline Phosphatase 63 IU/L (35-105); Anion Gap 16.1 (5-19); Aspartate Amino Transferase 29 U/L (0-32); Blood Urea Nitrogen 14 mg/dL (6-20); Calcium 8.5 mg/dL (8.5-10.5); Carbon Dioxide 26 mmol/L (22-29); Chloride 104 mmol/L (98-107); Glomerular Filtration Rate 46.8 mL/min (90-130); Glucose 101 mg/dL (65-115); Osmolality Calculated 292 mOsm/kg (285-295); Potassium 3.1 mmol/L (3.5-5.1); Sodium 143 mmol/L (136-145); Total Bilirubin 0.2 mg/dL (0.15-1.2); Total Protein 5.8 g/dL (6.6-8.7)
[2019-09-28] MEDS: perflutren protein-a microsphr 0.22 mg/mL SDV 3 mL IV (10:24)
--- NOTE | 2019-10-01 16:57 | ONC FU_ITS ---
Dr. Grijalva follow up note Patient: Samir Gerard Unit #: [id number]: 1965 Dicatated By: Annie Grijalva M.D.Date of Visit:Oct 01, 2019 Onc Med Follow-up/Prog Note History of Present Illness: Ms. Gerard is a 53-year-old female with history of left breast mass. She underwent biopsy about 20 years ago and it was negative, showed fibrous tissue only. Since then, she had no more follow-up mammograms until about 2 months ago when she went to emergency room with left breast 'inflammation'and progressive swelling and left axillary lymphadenopathy. A,t that time she was referred to oncology but did not follow through, but continue to follow with primary care. Eventually on 04/10/2019 she was referred to surgery. Dr. Montenegro evaluated her and she underwent left breast biopsy on 04/12/2019.v The biopsy reported invasive carcinoma, high-grade with dermal lymphatics involvement and perineural invasion. Identified also involvement of dermis e.g. 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 She presented with complaints of clear fluid oozing from the left breast skin and nipple as well as left axillary fullness. The left breast was swollen with overlying skin changes including under left axilla. Family history significant for mother with breast cancer and maternal aunt with breast cancer. She began menses patient at age 10 and has had no pregnancies. Ms Gerard has chronic discomfort/pain in her left upper back and left axilla. And whole left breast was swollen with overlying skin changes with off-and-on serosanguineous discharge from the nipple and skin. follow-up CT PET scan done on 05/05/2019 Showed 2 sites of FDG positive nodular dermal thickening in the left breast. Dominant lesion measures 2.2 x 3.4 cm with SUV of 14.7. And second lower inner quadrant lesion measured 1.4 cm with SUV of 9.7. Left axillary lymph nodes enlarged and FDG positive with index node measured 2.4 cm with SUV of 6.2. Additionally there are smaller but FDG positive lymph nodes. A left level IV cervical node measuring 1 cm has SUV of 4.8 indicating distant metastatic disease. Right axillary lymph node FDG positive, consistent with metastatic disease. Dr Grijalva discussed with Ms Gerard the CT PET scan findings, which showed metastatic disease to the bilateral axilla and level IVFDG positive left cervical lymph node. No other distant metastatic disease seen. Her echocardiogram shows ejection fraction 50-55%. Her recommended treatment was systemic therapy with pertuzumab/Herceptin/Taxotere every 3 weeks ???4-6 cycles and then evaluate with follow-up CT PET scan if it shows good response then consider surgical evaluation and radiation evaluation. Echocardiogram done on 05/09/2019 showed ejection fraction 50-55%. Ms Gerard began her first cycle of chemotherapy on 05/31/2019. Follow-up CT PET scan done after 3 cycles of systemic therapy on 07/21/2019 showed left breast dermal uptake is improved, now SUV is 5.7 compared to 14.7 previously. The index left axillary lymph node now measure 1.7 cm and is FDG negative. Right hilar lymph nodes are now subcentimeter in size and FDG negative. And left level IV cervical node is now subcentimeter in size and has minimal FDG uptake. Came for follow-up, complaining of persistent left arm swelling, as per patient recently underwent venous Doppler study which showed no evidence of DVT. Patient denies any left axillary fullness. Denies any trauma to her left arm. Denies any pain in her left arm but discomfort. She has Port-A-Cath in the right chest wall. Denies any shortness of breath, denies any facial swelling, denies any palpitation, denies any fever chills, denies any lower extremity edema, tolerating neoadjuvant chemotherapy with carboplatin/docetaxel/Herceptin/perjeta well Follow-up echo done on September 26, 2019 showed ejection fraction around 50%, discussed with Dr. Serrato, no significant change when compared with echo done prior to the treatment. CT scan of chest was done on September 26, 2019 because of persistent left arm swelling with normal venous Doppler study and it showed left axilla did not show any mass or lymphadenopathy. There is a thickening of left breast fissure. Solitary gallstone. Case was discussed with radiologist today, there is no evidence of venous thrombosis but somewhat narrowing of vein in the left axilla. Came for follow-up, patient denies any specific complaint except now off and on mild swelling in left arm, much improved. No pain, no tenderness. No fever or chills, no nausea or vomiting, appetite is good. No nipple discharge. Medications: Allergy Relief 1 Tablet (of 4 mg) Oral daily PRN, Dexamethasone (4 mg) Tablet Oral Take as Directed, Diphenoxylate-Atropine 1 Tablet (of 2.5-0.025 mg) Oral four times a day PRN, Fluconazole 1 Tablet (of 100 mg) Oral daily, HYDROcodone-Acetaminophen 1 - 2 Tablet (of 5-325 mg) Oral q 4 hours PRN, Ibuprofen 2 - 3 Tablet (of 200 mg) Oral PRN, Klor-Con 10 1 Tablet (of 10 meq) Tablet, controlled release Oral daily, LORazepam 0.5 - 1 Tablet (of 1 mg) Oral t.i.d. PRN, magic mouthwash 2 mL Liquid t.i.d., Ondansetron 1 Tablet (of 4 mg) Tablet Dispersable Oral t.i.d. PRN, Prochlorperazine Maleate 1 (10 mg) Tablet Oral q 4 hours PRN, traMADol HCl 1 (50 mg) Tablet Oral t.i.d. PRN Allergies: No Known Allergies. Review of Systems: Constitutional - Appetite is fair and weight is stable. No fever, chills. Positive for hot flashes and night sweats. Energy level is fair, ENMT - No sinus congestion/drainage. No mouth sores. No sore throat. Occasional difficulty swallowing, Hematologic/Lymphatic - No abnormal bruising or bleeding, Respiratory - No shortness of breath. No cough. No pleuritic pain or hemoptysis, Cardiovascular - No angina pain. No palpitations, Gastrointestinal - Positive for nausea and occasional vomiting. Positive for heartburn, no acid reflux. No diarrhea or constipation. No blood in the stool or black stools, Genitourinary (F) - No dysuria or hematuria. Positive for urinary frequency. No urgency or incontinence, Musculoskeletal - Positive for joint pain, Integumentary - edema noted in left arm, Neurologic - No headache or dizziness. No numbness/paresthesias or other focal neurologic symptoms, Psychiatric - Positive for anxiety and depression. Vital Signs: Performed on Oct 01, 2019 08:15 Height - 65.00 in Weight - 234.8 lbs (LOW) BSA - 2.12 sq.m BMI - 39.07 (HIGH) Temperature - 98.6 F Pulse - 92 /min Respiration - 24 /min BP - 153/89 mm(hg) (HIGH) O2 Sat - 98 % Pain - 0 Performance Status: 0 - Fully active, able to carry on all predisease activities without restrictions. (ECOG) Physical Examination: Respiratory - Lungs are clear, Cardiovascular - Regular rate and rhythm of heart, Extremities - Trace edema left arm otherwise unremarkable. Lab/Imaging: Test performed on Sep 12, 2019 08:13 Sodium 141 mmol/L Potassium 3.5 mmol/L Chloride 102 mmol/L CO2 25 mmol/L Anion Gap 17.5 BUN 15 mg/dL Creatinine 0.8 mg/dL Cr Clearance (Est) 143.4600 mL/min eGFR 74.7 mL/min Glucose 148 mg/dL Calcium 9.2 mg/dL Protein, Total 6.5 g/dL Albumin 3.8 g/dL Globulin 2.7 g/dL Bilirubin, Total 0.2 mg/dL ALT (SGPT) 23 U/L AST (SGOT) 20 U/L Alkaline Phosphatase 66 IU/L WBC 9.4 10 3/uL RBC 3.18 10 6/uL HGB 9.8 g/dL HCT 31.4 % MCV 98.7 fL MCH 30.8 pg MCHC 31.2 g/dL RDW 18.3 % Platelet Count 445 10 3/cmm MPV 9.2 fL Neutrophils 7.6 10 3/uL Lymphocytes 1.6 10 3/uL Monocytes 0.2 10 3/uL Eosinophils 0.0 10 3/uL Basophils 0.0 10 3/uL Neutrophil % 81.3 % Lymphocyte % 16.5 % Monocyte % 1.6 % Eosinophil % 0.0 % Basophils % 0.0 % Test performed on Jun 11, 2019 08:20 Magnesium 1.6 mg/dL Manual Bands % 50.0 % Manual Lymphs % 7 % Manual Monos % 9.0 % Metamyelocytes % 1.0 % Myelocytes % 1.0 % CBC Slide Review Slide Review Perform Manual Bands Abs 13.2 10 3/cmm Manual Monocytes Abs 2.4 10 3/cmm Impression: metastatic left breast cancer, with a left FDG positive axillary lymphadenopathy,and FDG positive right axillary lymphadenopathy, and left cervical level IV FDG positive lymph node per CT PET scan done on 05/05/2019 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 She has had port placement r(right internal jugular). discussed with Ms Gerard the CT PET scan findings, which showed metastatic disease to the bilateral axilla and level IVFDG positive left cervical lymph node. No other distant metastatic disease seen. Her echocardiogram shows ejection fraction 50-55%. recommended treatment with systemic therapy with pertuzumab/Herceptin/Taxotere every 3 weeks ???4-6 cycles and then evaluate with follow-up CT PET scan if it shows good response then consider surgical evaluation and radiation evaluation. Ms Gerard began her first cycle of chemotherapy on 05/31/2019. She did not receive Neulasta. Cycle 1 has been complicated thus far with persistent diarrhea and intermittent vomiting. As of day 15 the diarrhea and vomiting has subsided. Her follow-up CT PET scan showed excellent response with resolution of right axillary lymphadenopathy and left cervical lymph node also showed significant improvement. Including primary in the left breast. At this point we will consider adding carboplatin to the regimen, may improve response. Planning was to give her 3 cycles of chemotherapy and then CT PET scan if it shows complete response or clearance of metastatic lymphadenopathy then consider left modified radical mastectomy. Patient is considering breast reconstruction, patient will discuss with Dr. Montenegro regarding her options. Plan: Discussed with patient regarding her labs white blood count 7.1 hemoglobin 10.1 hematocrit 32.2 platelets 188,000 CMP within normal limit except potassium 3.1 and creatinine 1.2 and ALT 57 Clinically, patient is doing well has tolerated neoadjuvant therapy well with excellent response e.g. resolution of left axillary lymph nodes and supraclavicular lymph node and left breast skin lesion resolution. At this point will refer her to surgery for left mastectomy and involved left axillary lymph node dissection. As far as left arm swelling is concerned, now improving rather off and on her venous Doppler study was negative and CT scan of the chest was done to rule out intrathoracic venous involvement, as per discussion with radiology today there is no evidence of intrathoracic venous thrombosis. And if swelling progresses or persist venogram was recommended. There was a concern about echocardiogram as it showed ejection fraction 50% and Dr. Serrato recommended ultrasound enhancing agent study, as per Dr. Serrato it was done and it showed ejection fraction around 50 to 55%, no change when compared with pretreatment echocardiogram. We will see her back 1 week after her definitive surgery is done. And review final pathology if it shows persistent disease, will consider Kadcyla based therapy otherwise continue with Herceptin/Perjeta for total 1 year therapy. Signed By: Annie Grijalva M.D. <<Signature on File>>
[2019-10-04 10:18] LABS: Anion Gap 16.6 (5-19); Blood Urea Nitrogen 12 mg/dL (6-20); Calcium 7.3 mg/dL (8.5-10.5); Carbon Dioxide 28 mmol/L (22-29); Chloride 104 mmol/L (98-107); Glomerular Filtration Rate 51.8 mL/min (90-130); Glucose 97 mg/dL (65-115); Magnesium 1.2 mg/dL (1.7-2.3); Osmolality Calculated 296 mOsm/kg (285-295); Potassium 3.6 mmol/L (3.5-5.1); Sodium 145 mmol/L (136-145)
== END 2019-10-09 23:59 | disposition home or self-care (01) ==
LOC: ONCMED 06:45
PROVIDERS: PCP Nurse Practitioner Family; Visit Provider Internal Medicine Hematology & Oncology
DX: Z51.11 Encounter for antineoplastic chemotherapy (principal); C50.812 Malignant neoplasm of overlapping sites of left female breast; Z17.1 Estrogen receptor negative status [ER-]; F41.9 Anxiety disorder, unspecified; F32.9 Major depressive disorder, single episode, unspecified; K21.9 Gastro-esophageal reflux disease without esophagitis; Z79.818 Long term (current) use of other agents affecting estrogen receptors and estrogen levels
CPT/HCPCS: 36591; 80048; 80053; 83735; 85025; 96367; 96372; 96413; 96417; 99214; C8924; J1100; J1200; J1453; J2469; J2505; J3490; J7050; J9045; J9171; J9306; J9355; Q9956

== ENCOUNTER 2019-10-12 09:43 | Outpatient (CLI) | payer MEDICAID, SELFPAY ==
--- NOTE | 2019-10-12 10:15 | USCV_ITS ---
LisaSamir mendez Age: 53 Gender: F : 1965 Exam Date: 10/12/2019 09:59 Ordering Phys: Doug Roberson MD Technologist: Ney Hutchins [place] [facility] [place]ication: LT ARM PAIN AND SWELLING HISTORY: Upper extremity swelling. Upper extremity edema. PROCEDURES: Venous duplex imaging was performed in only the left upper extremity. The following venous structures were evaluated: internal jugular vein, subclavian vein, axillary vein, and brachial veins. In addition, the basilic vein, cephalic vein, radial vein, and ulnar vein. FINDINGS: No evidence of deep vein thrombosis or superficial thrombophlebitis in the left upper extremity. The veins of the left upper extremity are readily compressible with normal venous flow dynamics including spontaneous flow, respiratory phasic variation and augmentation. CONCLUSIONS No evidence of venous thrombosis in the left upper extremity Dr Bryson Wang MD [facility] (Electronically Signed) Final Date: 12 October 2019 16:14 S
== END 2019-10-12 09:44 | disposition home or self-care (01) ==
LOC: RAD 09:44
PROVIDERS: PCP Nurse Practitioner Family; Visit Provider Surgery
DX: M79.602 Pain in left arm (principal); M79.89 Other specified soft tissue disorders
CPT/HCPCS: 93971

== ENCOUNTER 2019-11-02 08:53 | Outpatient (CLI) | payer MEDICAID, SELFPAY | END 2019-11-02 08:54 | disposition home or self-care (01) | LOC: ONCMED 08:54 | PROVIDERS: PCP Nurse Practitioner Family; Visit Provider Internal Medicine Hematology & Oncology | DX: Z45.2 Encounter for adjustment and management of vascular access device (principal); C50.812 Malignant neoplasm of overlapping sites of left female breast; C50.912 Malignant neoplasm of unspecified site of left female breast | CPT/HCPCS: 96523 ==

== ENCOUNTER 2019-11-05 08:05 | Outpatient (CLI) | payer MEDICAID, SELFPAY ==
--- NOTE | 2019-11-05 08:30 | CT_ITS ---
WS: [id number] CT CHEST WITH INTRAVENOUS CONTRAST HISTORY: swelling of left arm TECHNIQUE: Contiguous 5 mm axial imaging performed on the thorax. Coronal and sagittal reformats are submitted. All CT scans at [facility] use at least one of these dose optimization techniq ues: automated exposure control; mA and/or kV adjustment per patient size (includes targeted exams wh ere dose is matched to clinical indication); or iterative reconstruction. CONTRAST: Visipaque 320; 95 mL IV. DLP: 652.42 mGycm COMPARISON: 09/26/2019 Lungs and central airway: No pulmonary mass or nodule. Minimal linear subsegmental atelectasis in the RIGHT middle lobe and in the LEFT lower lobe. Pleura: Normal. No pleural effusion. Heart and pericardium: Normal size heart. No pericardial effusion. Mediastinum and bryant: No mediastinum or hilar adenopathy. Vessels: Good enhancement of the pulmonary artery. Proximal great vessels are normal. Normal pulmonary artery. Nonopacification of the LEFT subclavian v ein due to phase of injection. Chest wall and lower neck: Soft tissue thickening of the LEFT breast from known history of breast can cer with treatment. Upper abdomen: Cholelithiasis. No adrenal mass. Visualized liver is negative for mass. Mild hepatic s teatosis. Osseous structures: No osteoblastic or osteolytic bone disease. CT/CT chest w con* [id number] IMPRESSION: 1. No pulmonary mass or nodule. 2. Posttreatment changes in the LEFT breast. 3. No opacification of the LEFT subclavian vein and innominate due to phase of injection. Please note on the study of 09/26/2019 there is normal opacification of the LEFT subclavian vein and innominate. 4. Cholelithiasis without acute cholecystitis.
--- NOTE | 2019-11-05 09:00 | CT_ITS ---
WS: [id number] CT LEFT SHOULDER WITH CONTRAST HISTORY: left arm swelling Technique: All CT scans at [facility] use at least one of these dose optimization techniq ues: automated exposure control; mA and/or kV adjustment per patient size (includes targeted exams wh ere dose is matched to clinical indication); or iterative reconstruction. DLP: 204.2 mGycm Contrast: Visipaque 75 cc IV. COMPARISON: None available. No osteoblastic or osteolytic bone disease. Humeral head is normally seated at the glenoid. Mild AC j oint arthropathy with osteophytes encroaching upon the rotator cuff. No soft tissue mass. Post radiat ion changes in the visualized LEFT breast with soft tissue thickening. Only minimal opacification of the LEFT subclavian and innominate due to phase of injection. CT/CT shoulder LT w con [id number] IMPRESSION: 1. No osteoblastic or osteolytic bone disease. 2. Mild AC joint arthritis with osteophyte encroachment upon the supraspinatus . 3. No soft tissue mass.
--- NOTE | 2019-11-05 09:01 | CT_ITS ---
WS: [id number] CT LEFT HUMERUS WITH CONTRAST. HISTORY: SWELLING OF LEFT ARM Technique: All CT scans at [facility] use at least one of these dose optimization techniq ues: automated exposure control; mA and/or kV adjustment per patient size (includes targeted exams wh ere dose is matched to clinical indication); or iterative reconstruction. DLP: 4 6.74 mGy-cm. COMPARISON: None available. No osteoblastic or osteolytic bone disease. There is mild diffuse soft tissue edema throughout the so ft tissues of the humerus. Soft tissue edema becomes more prominent along the posterior proximal tomer gui and progresses inferiorly. Most significant edema surrounding the elbow. No dislocation. No joint effusion at the elbow. No enhancing masses in the muscles. Normal enhancement of the arteries and ve ins. CT/CT humerus LT w con [id number] IMPRESSION: 1. No soft tissue mass identified. 2. Significant soft tissue edema beginning in the proximal posterior forearm. Edema becomes more significant at the elbow and more circumferential.
--- NOTE | 2019-11-05 09:01 | CT_ITS ---
WS: [id number] CT LEFT FOREARM WITH CONTRAST HISTORY: SWELLING OF LEFT ARM Technique: All CT scans at [facility] use at least one of these dose optimization techniq ues: automated exposure control; mA and/or kV adjustment per patient size (includes targeted exams wh ere dose is matched to clinical indication); or iterative reconstruction. DLP: 370.50 mGy-cm. Contrast: Visipaque 75 mL. COMPARISON: None available. There is extensive subcutaneous edema throughout the soft tissues of the forearm. Edema becomes circu mferential the mid forearm it most prominent posterior. Soft tissue edema extends through the wrist. There is no associated soft tissue mass. No osteoblastic or osteolytic bone disease. CT/CT forearm LT w con [id number] IMPRESSION: 1. Moderate diffuse soft tissue edema around the forearm. 2. No mass.
[2019-11-05] MEDS: iodixanol 320 mg/mL 100mL Btl IV ×2 (09:38→09:39)
== END 2019-11-05 08:06 | disposition home or self-care (01) ==
PROVIDERS: Family Provider Nurse Practitioner Family; PCP Nurse Practitioner Family; Visit Provider Surgery
DX: M79.89 Other specified soft tissue disorders (principal); K80.20 Calculus of gallbladder without cholecystitis without obstruction; M25.712 Osteophyte, left shoulder; M19.012 Primary osteoarthritis, left shoulder; R60.0 Localized edema
CPT/HCPCS: 71260; 73201; Q9967

== ENCOUNTER 2019-11-22 14:59 | Outpatient (CLI) | payer MEDICAID, SELFPAY ==
--- NOTE | 2019-11-22 15:45 | US_ITS ---
WS: [id number] INDICATION: Mass left breast TECHNIQUE: Ultrasound left axilla FINDINGS: A few normal-appearing left axillary lymph nodes are visualized within normal preserved ech ogenic fatty hilum. No significant cortical thickening. Largest lymph node measures 1.9 x 0.9 x 0.7 C M. No pathologic lymphadenopathy. US/US soft tissue/extremity [id number] IMPRESSION: A few normal-appearing lymph nodes left axilla with preserved fatty hilum. Largest lymph node measures 1.9 x 0.9 x 0.7 cm with a normal appearance
== END 2019-11-22 15:00 | disposition home or self-care (01) ==
PROVIDERS: Family Provider Nurse Practitioner Family; PCP Nurse Practitioner Family; Visit Provider Surgery
DX: N63.20 Unspecified lump in the left breast, unspecified quadrant (principal)
CPT/HCPCS: 76882

== ENCOUNTER 2019-11-30 08:14 | Outpatient (CLI) | payer MEDICAID, SELFPAY | END 2019-11-30 08:15 | disposition home or self-care (01) | LOC: ONCMED 08:17 | PROVIDERS: PCP Nurse Practitioner Family; Visit Provider Internal Medicine Hematology & Oncology | DX: Z45.2 Encounter for adjustment and management of vascular access device (principal); Z11.59 Encounter for screening for other viral diseases | CPT/HCPCS: 87635; 96523 ==

== ENCOUNTER 2019-12-04 10:48 | Observation (INO) | payer MEDICAID, SELFPAY ==
[2019-12-03 11:07] VITALS: BMI 39.7
[2019-12-04] VITALS (15 sets, daily range): BP systolic 78–165; BP diastolic 42–98; PULSE 67–98; RESP 16–24; TEMP 36.3–36.8; O2SAT 93–100
--- NOTE | 2019-12-04 07:03 | ANES.PREANE2 ---
Pre-Anesthetic Assessment Pre-Anesthetic Assessment: Height/Weight: Height 1.65 m Weight 108.409 kg Temp Pulse Resp BP Pulse Ox 97.8 F 92 20 H 165/92 95 12/04/19 06:54 12/04/19 06:54 12/04/19 06:54 12/04/19 06:54 12/04/19 06:54 Preop Diagnosis: Inflammatory breast cancer left breast Proposed Procedure: Operation Date: 12/04/19 08:10 Proposed Procedures p Mastectomy Simple 96260 C50.912 W/Lymph node dissection(Left) - Doug Roberson MD s Excision Lymph Node Upper Extremity(Left) - Doug Roberson MD Familial anesthetic complications: None Last intake: Intake Last Liquid Date 12/03/19 Last Liquid Time 19:30 Last Solid Date 12/03/19 Last Solid Time 19:30 Social: Social History: No alcohol and No tobacco Exam: Pre-Anes Outpt Exam: alert, oriented x 3, clear to auscultation bilaterally and regular rate & rhythm Airway: Cervical ROM: WNL MP: 3 Dentition: Other (missing) Additional comments: large neck circumference Pulmonary: Pulmonary: None reported Metabolic: Metabolic: Morbid obesity Anesthetic Plan: ASA status: 2 Anesthesia: General Risk of > 500 ml blood loss (7ml/kg in children): No PFSH Anesthesia PFSH: Medical History Anxiety Breast cancer, left breast Bronchitis Depression Gastroesophageal reflux Surgical History History of breast biopsy (~03/2019) Family History Other Family history of CVA Family history of breast cancer Family history of cholelithiasis Social History Smoking and tobacco status: former smoker Quit status (tobacco): has quit using tobacco Second hand smoke exposure: No Alcohol intake: never Adopted: No Caregiver/support person: No Lives independently: No Household members: none Housing: House Marital status: Single service: No Current occupational status: employed Current occupational exposures/hazards: No Pets and animals: No History of recent travel: No Current gender identity: Female Melissa/Roman Catholic: Syn[employer] Special melissa needs: No Agree to transfusion: No Financial difficulty paying for basics: Decline to Answer Data Anesthesia Cardiac Studies: Echocardiogram 09/28/19
[2019-12-04] MEDS: heparin 5,000 unit/mL INJ 1 mL 2000 UNIT SUBCUT (07:12)
[2019-12-04] MEDS: sodium chloride 0.9% 1,000 ML 30 ML IV (07:14)
--- NOTE | 2019-12-04 08:01 | W.PM.OPSUD ---
Surgery/Procedure H&P Update DATE OF PROCEDURE: December 04, 2019 DATE H&P PERFORMED: 11/21/19 H&P UPDATE INFORMATION: I have reviewed H&P completed within last 30 days, I have examined patient prior to procedure and No changes to prior documentation (Except for we will proceed with left axillary node dissection after discussing with the patient and Dr. Grijalva and she did agree to proceed understanding the potential high risk of worsening lymphedema that may require future surgical intervention up to irritation of the left upper extremity if it got complicated and became dysfunctional limb) PREOP DIAGNOSIS: Inflammatory breast cancer left breast PRIMARY INDICATION FOR PROCEDURE: The same PLANNED PROCEDURE: Operation Date: 12/04/19 08:10 Proposed Procedures p Mastectomy Simple 96757 C50.912 W/Lymph node dissection(Left) - Doug Roberson MD s Excision Lymph Node Upper Extremity(Left) - Doug Roberson MD
--- NOTE | 2019-12-04 09:18 | SUR.OPER ---
[id number] - Pt's family - Mindy - notified of surgery start via her cell phone.
--- NOTE | 2019-12-04 10:28 | SUR.OPER ---
Libertad updated on surgery progress and pt status via her cell phone
[2019-12-04] MEDS: lidocaine 2% INJ 20 mL INJECTION (10:35)
--- NOTE | 2019-12-04 11:07 | P.OP_ITS ---
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 Zamorano) Estimated blood loss (mL): 250 IV fluids (mL): 1,700 Condition: stable Disposition: observation Brief History: This a pleasent 53 Y old Female patient with proven left Breast Inflammatory type,undergone chemotherapy and case discussed at the tumour board and consensus obtained to procedd with L Modfied radical mastectomy with a prexcisting LUE Lympdema,patient is aware of the potential worsening of such condiiton after her surgery and she is also aware of the beenfits associated with left Axillary LN dissection. Informed consent per chart. Procedure: Patient was identified in holding area and the left breast was marked by me in the presence of female professor of communication and writing nursing staff, patient was brought then to the operating room and the site of surgery was confirmed.Timeout was done verifying the patient's name/date of /planned procedure and destination after the procedure, all were in agreement. SCDs confirmed to be functioning, preoperative antibiotics administered per protocol,and beta kennedi protocol was confirmed, appropriate positioning of the patient was done by me.Heparin subcu was given on-call to the OR. Left breast and chest wall including anai axilla and the whole left upper extremity and neck were prepped and draped in the usual sterile fashion, the left upper extremity were placed in a stockinette to allow mobilization of the arm during axillary dissection. Skin incision was made that encompassed the nipple area complex and the previous biopsy scar passed in a generally transverse/oblique direction across the breast Flaps were raised in the avascular plane between the subcutaneous tissue and breast tissue from the clavicle superiorly, the sternum medially, the anterior rectus sheath inferiorly, and anterior border of the latissimus dorsi muscle laterally yet the Breast was noticed to be highly vascular.. Hemostasis was achieved of the flaps. Next the breast tissue underlying pectoralis fascia were excised from the pectoralis major muscle, progressing from medially to laterally in the avascular plane.At the lateral border of the pectoralis major muscle, the breast tissue was swung laterally, and dissection progressed under the muscle. The clavipectoral fascia was then incised along the edge of the pectoralis major and the pectoralis major and minor were freed from surrounding fat and anna tissue.Dissection progressed first under the pectoralis major done under the pectoralis minor muscle. The pectoral muscles were retracted medially with a Samuels retractor. The medial pectoral neurovascular bundle was identified and preserved.The level II anna tissue deep in the pectoralis minor was included in the dissection.The axillary vein then identified and cleared of overlying fat. The thoracodorsal bundle was identified and safeguarded, the long thoracic nerve then identified along the edge of the serratus anterior on the chest wall and preserved,nerve to latissimus dorsi was preserved.Medium sized clips were placed for Hemostasis. Remaining anna tissue between the above nerves is then carefully removed, the specimen consisting of breast and attached anna tissue then excised by dividing the remaining lateral pedicle and sent for permanent pathology. The wound was irrigated and hemostasis was achieved. Two rounded Kit drains 19 [place] were placed and brought out through the inferior flap,One towards the axilla and the other towards the left pectoral region, drains were stitched to the skin, wound was then closed using deep subdermal 2-0 Vicryl , followed by skin deepti, dry dressing, drain dressings, Telfa, fluffs on top and sports bra was applied. Counts of sponges and instruments were completed at the end of the procedure I was present for the whole entire procedure Patient was then extubated and taken to the recovery room in stable condition
--- NOTE | 2019-12-04 11:09 | SUR.PHASEI ---
PT AWAKE ALERT VERBALLY DENIES PAIN AND NAUSEA, VSS IV PATENT PT ON 8LMASK, TRENT DRAINS X 2 TO LT BREAST SITE , COMPRESSED WITH MOD AMT RED DRAINAGE. DRESSING D/I, BRA IN PPLACE
--- NOTE | 2019-12-04 11:14 | SUR.PHASEI ---
LT ARM SWOLLEN FROM LYMPHADEMA , PRIOR TO SURGERY STATED BY CIPRIANO FLORES, ARM MEASURED BY DR KEENA MERCEDES, PT ALSO HAS A PORT SITE TO RT SUBCLAVIAN AREA IV NOW TO RT WRIST #20 PATENT.
--- NOTE | 2019-12-04 11:29 | SUR.PHASEI ---
1122 DR OROZCO AT BEDSIDE , ORDERS RECIEVED FOR IV HYDROCORTIZONE BEFORE TRANSFER. WILL HOLD PT UNTIL MED GIVEN
[2019-12-04] MEDS: hydrocortisone 100 mg/2 mL SDV 50 MG IVP (11:34)
[2019-12-04] MEDS: sodium chloride 0.9% 1,000 ML 100 ML IV (11:39)
--- NOTE | 2019-12-04 12:18 | SUR.PHASEI ---
1200 PT AWAKE ALERT OREINTED X 3 PT LT CHEST DRESSING OOZING THRU AT LATERAL DRAIN SITE, DRAIN EMPTIED OF 60 ML RED DRAINAGE AND REINFORCED WITH 4X4 ABD SPONGE AND PAPER TAPE WITH DR HYATT AT BEDSIDE. PT THEN TO FLOOR AWAKE ALERT STOOD AND GOT TO BED WITH MINIMAL ASSIST, BP 130/78, HRE 76 SATS ON 2LNC 98%
[2019-12-04 14:33] LABS: Glucose Point of Care 185 mg/dL (70-110)
[2019-12-04 16:02] LABS: Hematocrit 26.6 % (37.0-47.0); Hemoglobin 7.9 g/dL (11.5-15.3)
--- NOTE | 2019-12-04 16:13 | P.PN_ITS ---
Subjective Subjective: Interval history: Patient felt dizzy and had lower BP, when she was standing up and heading to the bathroom likely had postural hypotension which responded right away to a bolus of 500 mL of normal saline with a current blood pressure 116/71 and heart rate of 78 and satting 95% on 2 L of oxygen. Vitals/I&O/Wt Last Vital Signs Temp 98.2 F 12/04/19 14:20 Pulse 74 12/04/19 14:40 Resp 16 12/04/19 14:40 BP 113/71 12/04/19 14:40 Pulse Ox 97 12/04/19 14:40 12/04/19 12/04/19 12/04/19 06:59 14:59 22:59 Intake Total 2150 / 2150 Output Total 410 / 410 130 / 540 Balance 1740 / 1740 -130 / 1610 Weight last 48 hrs Weight 239 lb Physical Exam Narrative: EXAM NARRATIVE: Patient is conscious alert oriented X3 BMI 40 Head and neck examination PERRLA no masses no cervical lymphadenopathy no jaundice Left pectoral region drains in place with sanguinous output Abdomen nontender nondistended soft no organomegaly guarding or rigidity/no signs of peritonitis Data : 12/04/19 15:50 A&P Assessment and plan (1) Breast cancer, left breast: Patient is a status post left modified radical mastectomy for inflammatory breast cancer, developed vasovagal episode and postural hypotension, responded to IV fluids. Check H&H stat dropped from 10.1 to 7.9, will repeat H&H in the morning and close monitoring Continuous cardiac monitoring Encouraged the patient to seek assistance and getting up from sitting to standing position slowly to avoid similar episodes. Assurance and education All questions have been answered and all concerns have been addressed to patient's satisfaction. Status: Resolved Attestations Medical Necessity Statement*: Observation Time Spent in Patient Care: (>than 50% of time spent in counselling and/or direct pt care on unit) . Coding Level of Care Code Acute Sleeve Bottom Feller for Chg Fwd Diagnoses Breast cancer, left breast C50.912
[2019-12-04] MEDS: famotidine 20 mg/2 mL INJ IVP (18:29)
[2019-12-04] MEDS: dexamethasone 4 mg Tablet PO (18:29)
[2019-12-04] MEDS: sodium chloride 0.9% 1,000 ML 75 ML IV ×2 (18:29→22:50)
[2019-12-04] MEDS: sodium chloride 0.9% 500 ML IV (18:30)
[2019-12-05 02:35] VITALS: BP 137/78; PULSE 87; RESP 20; TEMP 36.8; O2SAT 99
[2019-12-05 05:19] LABS: Hemoglobin 7.8 g/dL (11.5-15.3)
[2019-12-05] MEDS: famotidine 20 mg/2 mL INJ IVP (05:28)
[2019-12-05 05:42] LABS: Blood Urea Nitrogen 22 mg/dL (6-20); Calcium 7.9 mg/dL (8.5-10.5); Carbon Dioxide 23 mmol/L (22-29); Chloride 110 mmol/L (98-107); Glomerular Filtration Rate 57.8 mL/min (90-130); Glucose 181 mg/dL (65-115); Osmolality Calculated 295 mOsm/kg (285-295); Sodium 142 mmol/L (136-145)
--- NOTE | 2019-12-05 06:29 | P.SS_ITS ---
Short Stay Summary Providers Date of Admit/Discharge: 12/05/19 Attending Provider: Doug Roberson MD Chief Complaint: left simple mastectomy HPI History of Present Illness Ms. britta Gerard is a 53 year old female diagnosed with inflammatory breast cancer undergone neoadjuvant chemotherapy and the case has been discussed with Dr. Grijalva and the recommendation to proceed with a left modified radical mastectomy patient did have surgery yesterday and was uneventful. Review of Systems General: Reports: 10 or more systems reviewed and unremarkable except in HPI and below Home Meds/Allergies Home Medications and Allergies Home Medications Medication Instructions Recorded Confirmed Type esomeprazole magnesium [Nexium] 20 mg PO DAILY PRN 04/11/19 12/03/19 History ibuprofen [Advil] 200 mg PO Q6H PRN 04/11/19 12/04/19 History dexamethasone 4 mg tablet 4 mg PO BID 05/24/19 12/03/19 History hydrocodone 5 mg-acetaminophen 325 1 tab PO Q6H PRN MDD 10 05/24/19 12/03/19 History mg tablet lorazepam 1 mg tablet 1 mg PO TID PRN MDD 1 05/24/19 12/03/19 History ondansetron HCl 4 mg tablet 4 mg PO Q8H 05/24/19 12/03/19 History prochlorperazine maleate 10 mg 10 mg PO Q4H PRN tab 05/24/19 12/03/19 History tablet fluconazole 100 mg PO DAILY 06/10/19 12/03/19 History levofloxacin 500 mg PO DAILY 06/10/19 12/04/19 History loperamide [Imodium A-D] 2 mg PO Q4H PRN 06/10/19 12/03/19 History tramadol 50 mg PO Q8H PRN 12/03/19 12/04/19 History Allergies Allergy/AdvReac Type Severity Reaction Status Date / Time No Known Allergies Allergy Verified 12/05/19 06:31 PFSH Acute PFSH: Medical History Anxiety Breast cancer, left breast Bronchitis Depression Gastroesophageal reflux Surgical History History of breast biopsy (~03/2019) Family History Other Family history of CVA Family history of breast cancer Family history of cholelithiasis Social History Smoking and tobacco status: former smoker Quit status (tobacco): has quit using tobacco Second hand smoke exposure: No Alcohol intake: never Adopted: No Caregiver/support person: No Lives independently: No Household members: none Housing: House Marital status: Single service: No Current occupational status: employed Current occupational exposures/hazards: No Pets and animals: No History of recent travel: No Current gender identity: Female Melissa/Mosque: Buddhist Special melissa needs: No Agree to transfusion: No Financial difficulty paying for basics: Decline to Answer Vitals/I&O/Wt Last Vital Signs Temp 98.2 F 12/05/19 02:35 Pulse 87 12/05/19 02:35 Resp 20 H 12/05/19 02:35 BP 137/78 12/05/19 02:35 Pulse Ox 99 12/05/19 02:35 12/04/19 12/04/19 12/05/19 14:59 22:59 06:59 Intake Total 2150 / 2150 726.25 / 2876.25 Output Total 410 / 410 630 / 1040 Balance 1740 / 1740 96.25 / 1836.25 Weight last 48 hrs Weight 239 lb Physical Exam Narrative: EXAM NARRATIVE: Patient is conscious alert oriented X3 BMI 40 Head and neck examination PERRLA no masses no cervical lymphadenopathy no ja undice Left pectoral examination was done in the presence of female utility bill collection clerk [facility] Flaps are healthy no signs of ischemia Drains in place showing kaye colored with no active bleed Hospital Course Discharge Summary: Patient is a status post left mastectomy and axilla for dissection of the posterior lateral axilla, and overall did well and continued to have stable vital signs that she did develop softer blood pressure due to 1 episode of postural hypotension as she was heading to the bathroom that she did respond to 500 mL of normal saline bolus and maintained to be have stable vital signs there after, H&H was done yesterday showing a hemoglobin of 7.9 that dropped from 10.1 prior to surgery and today's hemoglobin is 7.8 and patient continued to have stable vital signs and good urine output. Did discuss with the patient about the potential blood transfusion versus iron therapy upon discharge and since the patient is hemodynamically stable will proceed with iron supplementation and follow-up with H&H on return to my office in 7 to 10 days Patient is tolerating well p.o. intake Bed side physical therapy exercises for the left upper extremity was demonstrated for the patient to help decrease the lymphedema. She verbalized her understanding of the plan of care and she does approve the iron supplements versus blood transfusion. SSS Data Data Completed and Pending: Pending at discharge Category Date Time Status Pathology: Surgic al [PTH] Routine Pth 12/04/19 10:25 Received Procedures Performed: Left modified radical mastectomy Diagnoses at Discharge Discharge Diagnosis (1) Breast cancer, left breast: Status: Resolved Problem details: We will plan to discharge home today Drain teaching and education Assurance and education All questions have been answered and all concerns have been addressed to patient's satisfaction. Discharge Plan Discharge Patient Disposition: Home Condition: Stable Prescriptions: [place] 5-325 mg tablet 1 tab PO Q6H PRN (Reason: pain) Qty: 28 RF: 0 ferrous gluconate 324 mg (37.5 mg iron) tablet 324 mg PO DAILY Qty: 30 RF: 2 Continued prochlorperazine maleate 10 mg tablet 10 mg PO Q4H PRN (Reason: Nausea) RF: 0 dexamethasone 4 mg tablet 4 mg PO BID RF: 0 hydrocodone-acetaminophen [[place]] 5-325 mg tablet 1 tab PO Q6H MDD 10 PRN (Reason: Nausea) RF: 0 ondansetron HCl [Zofran] 4 mg tablet 4 mg PO Q8H RF: 0 lorazepam 1 mg tablet 1 mg PO TID MDD 1 PRN (Reason: Nausea) RF: 0 tramadol 50 mg tablet 50 mg PO Q8H PRN (Reason: Pain) RF: 0 ibuprofen [Advil] 200 mg Tablet 200 mg PO Q6H PRN (Reason: Pain) RF: 0 Hold Instructions: Resume on 06/01/19. esomeprazole magnesium [Nexium] 20 mg Capsule,Delayed Release(Dr/Ec) 20 mg PO DAILY PRN (Reason: Abdominal Distention) RF: 0 loperamide [Imodium A-D] 2 mg Tablet 2 mg PO Q4H PRN (Reason: Diarrhea) RF: 0 levofloxacin 500 mg Tablet 500 mg PO DAILY RF: 0 fluconazole 100 mg Tablet 100 mg PO DAILY RF: 0 Discontinued acetaminophen [Tylenol] 325 mg Tablet 650 mg PO QID PRN (Reason: Diarrhea) RF: 0 Discharge Orders: Discharge Order (Routine); Ordered 12/05/19 Ordered By: Doug Roberson Referrals: Doug Roberson MD [Physician] - (Return to surgery office in 7 to 10 days) Discharge Diet: Advance as tolerated Discharge Activity: Limit activity as instructed Activity Restrictions/Additional Instructions: 1. Patient can shower after 48 hours from surgery 2. Remove dressing after 48 hours from surgery and keep incision open to a ir/drain care 3. Up and walking as tolerated 4. Do lift more than 5 pounds first 2 weeks after surgery and not more than 25 pounds 6 to 8 weeks after surgery. 5. Do not operate heavy machinery or drive while using pain medications. 6.Contact the office or return to the ER for worsening nausea vomiting fevers or chills, or noticing any redness around incision sites or discharge. 7. Measurement of left upper extremity girth twice a week Attestations Medical Necessity Statement*: Observation status Time Spent in Patient Care*: greater than 30 min Specific Discharge Activities: Specific discharge activities: educating patient Status at Discharge: Cognitive status at discharge: cognitively intact , Behavioral status at discharge: cooperative , Functional status at discharge: independent ambulation Overall status at discharge: patient is progressing back to baseline Quality Metrics Clinical Quality Measures: During this hospital stay, did patient experience: None Coding Level of Care Code Acute Manager Sales for g Fwd Diagnoses Breast cancer, left breast C50.912
[2019-12-05 08:33] VITALS: BP 129/78; PULSE 89; RESP 18; TEMP 37.1; O2SAT 94
[2019-12-05] MEDS: dexamethasone 4 mg Tablet PO (09:25)
[2019-12-05] MEDS: HYDROcodone-acetaminophen 5-325 mg Tablet 1 TAB PO (09:50)
[2019-12-05 12:08] VITALS: BP 129/78; PULSE 89; RESP 18; TEMP 37.1; O2SAT 94
== END 2019-12-05 10:15 | disposition home or self-care (01) ==
LOC: MEDSURG 10:49
PROVIDERS: Admitting Provider Surgery; Visit Provider Surgery
PROC: (CPT 19303; principal; 2019-12-04 08:10)
DX: C50.912 Malignant neoplasm of unspecified site of left female breast (principal); K21.9 Gastro-esophageal reflux disease without esophagitis; F41.9 Anxiety disorder, unspecified; F32.9 Major depressive disorder, single episode, unspecified; Z87.891 Personal history of nicotine dependence; Z79.899 Other long term (current) drug therapy
CPT/HCPCS: 19307; 12345; 36415; 36416; 80048; 82962; 85014; 85018; 88309; 96361; 96365; 96372; 96375; G0378; J0131; J0690; J1644; J1720; J2370; J2704; J3010; J3490; J7030; J7040; J8540

== ENCOUNTER 2020-01-03 08:59 | Outpatient (CLI) | payer MEDICAID, SELFPAY ==
[2020-01-03 09:24] LABS: Basophils % 0.4 %; Eosinophils # 0.1 10^3/uL (0.0-0.8); Eosinophils % 1.5 %; Hematocrit 28.6 % (37.0-47.0); Hemoglobin 8.4 g/dL (11.5-15.3); Lymphocytes % 24.2 %; Mean Corpuscular HGB Conc 29.4 g/dL (30.0-36.0); Mean Corpuscular Hemoglobin 27.5 pg (28.0-34.0); Mean Corpuscular Volume 93.5 fL (81-99); Mean Platelet Volume 9.8 fL (7.4-10.4); Monocytes # 0.7 10^3/uL (0.2-0.9); Monocytes % 8.5 %; Neutrophils # 5.28 10^3/uL (1.8-7.7); Nucleated Red Blood Cells % 0 %; Platelet Count 409 10^3/cmm (130-400); Red Blood Count 3.06 10^6/uL (4.1-5.3); Red Cell Distribution Width 14.9 % (12.1-15.1); White Blood Count 8.1 10^3/uL (4.0-10.0)
[2020-01-03 09:48] LABS: Alanine Aminotransferase 11 U/L (0-33); Albumin Level 3.7 g/dL (3.5-5.2); Alkaline Phosphatase 68 IU/L (35-105); Aspartate Amino Transferase 17 U/L (0-32); Blood Urea Nitrogen 20 mg/dL (6-20); Calcium 8.9 mg/dL (8.5-10.5); Carbon Dioxide 28 mmol/L (22-29); Chloride 104 mmol/L (98-107); Globulin 3.2 g/dL (1.3-4.6); Glomerular Filtration Rate 57.6 mL/min (90-130); Glucose 93 mg/dL (65-115); Osmolality Calculated 294 mOsm/kg (285-295); Sodium 141 mmol/L (136-145); Total Bilirubin 0.2 mg/dL (0.15-1.2); Total Protein 6.9 g/dL (6.6-8.7)
--- NOTE | 2020-01-03 17:03 | ONC FU_ITS ---
Dr. Grijalva follow up note Patient: Samir Gerard Unit #: [id number]: 1965 Dicatated By: Annie Grijalva M.D.Date of Visit:Jan 03, 2020 Onc Med Follow-up/Prog Note History of Present Illness: Ms. Gerard is a 54-year-old female with history of left breast mass. She underwent biopsy about 20 years ago and it was negative, showed fibrous tissue only. Since then, she had no more follow-up mammograms until about 2 months ago when she went to emergency room with left breast 'inflammation'and progressive swelling and left axillary lymphadenopathy. A,t that time she was referred to oncology but did not follow through, but continue to follow with primary care. Eventually on 04/10/2019 she was referred to surgery. Dr. Montenegro evaluated her and she underwent left breast biopsy on 04/12/2019.v The biopsy reported invasive carcinoma, high-grade with dermal lymphatics involvement and perineural invasion. Identified also involvement of dermis e.g. 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 She presented with complaints of clear fluid oozing from the left breast skin and nipple as well as left axillary fullness. The left breast was swollen with overlying skin changes including under left axilla. Family history significant for mother with breast cancer and maternal aunt with breast cancer. She began menses patient at age 10 and has had no pregnancies. Ms Gerard has chronic discomfort/pain in her left upper back and left axilla. And whole left breast was swollen with overlying skin changes with off-and-on serosanguineous discharge from the nipple and skin. follow-up CT PET scan done on 05/05/2019 Showed 2 sites of FDG positive nodular dermal thickening in the left breast. Dominant lesion measures 2.2 x 3.4 cm with SUV of 14.7. And second lower inner quadrant lesion measured 1.4 cm with SUV of 9.7. Left axillary lymph nodes enlarged and FDG positive with index node measured 2.4 cm with SUV of 6.2. Additionally there are smaller but FDG positive lymph nodes. A left level IV cervical node measuring 1 cm has SUV of 4.8 indicating distant metastatic disease. Right axillary lymph node FDG positive, consistent with metastatic disease. Dr Grijalva discussed with Ms Gerard the CT PET scan findings, which showed metastatic disease to the bilateral axilla and level IVFDG positive left cervical lymph node. No other distant metastatic disease seen. Her echocardiogram shows ejection fraction 50-55%. Her recommended treatment was systemic therapy with pertuzumab/Herceptin/Taxotere every 3 weeks ???4-6 cycles and then evaluate with follow-up CT PET scan if it shows good response then consider surgical evaluation and radiation evaluation. Echocardiogram done on 05/09/2019 showed ejection fraction 50-55%. Ms Gerard began her first cycle of chemotherapy on 05/31/2019. Follow-up CT PET scan done after 3 cycles of systemic therapy on 07/21/2019 showed left breast dermal uptake is improved, now SUV is 5.7 compared to 14.7 previously. The index left axillary lymph node now measure 1.7 cm and is FDG negative. Right hilar lymph nodes are now subcentimeter in size and FDG negative. And left level IV cervical node is now subcentimeter in size and has minimal FDG uptake. Follow-up echo done on September 26, 2019 showed ejection fraction around 50%, discussed with Dr. Serrato, no significant change when compared with echo done prior to the treatment. CT scan of chest was done on September 26, 2019 because of persistent left arm swelling with normal venous Doppler study and it showed left axilla did not show any mass or lymphadenopathy. There is a thickening of left breast fissure. Solitary gallstone. Case was discussed with radiologist today, there is no evidence of venous thrombosis but somewhat narrowing of vein in the left axilla. Patient underwent left total mastectomy with axillary lymph node dissection done on December 04, 2019 showed 0.8 mm focus of residual carcinoma with extensive sclerosis related to post neoadjuvant therapy and 5 left axillary lymph nodes were evaluated showed sclerosis but no evidence of metastatic disease. ypT1 pN0 Came for follow-up, denies any specific complaints, no fever chills, no nausea or vomiting, no diarrhea constipation, patient recently underwent left mastectomy with axillary lymph node dissection showed excellent response to neoadjuvant chemotherapy now left with subcentimeter invasive disease with no left axillary lymph node involvement compared to extensive left breast involvement with skin involvement and palpable left axillary lymphadenopathy Medications: Allergy Relief 1 Tablet (of 4 mg) Oral daily PRN, Dexamethasone (4 mg) Tablet Oral Take as Directed, Diphenoxylate-Atropine 1 Tablet (of 2.5-0.025 mg) Oral four times a day PRN, Fluconazole 1 Tablet (of 100 mg) Oral daily, HYDROcodone-Acetaminophen 1 - 2 Tablet (of 5-325 mg) Oral q 4 hours PRN, Ibuprofen 2 - 3 Tablet (of 200 mg) Oral PRN, Klor-Con 10 1 Tablet (of 10 meq) Tablet, controlled release Oral daily, LORazepam 0.5 - 1 Tablet (of 1 mg) Oral t.i.d. PRN, magic mouthwash 2 mL Liquid t.i.d., Ondansetron 1 Tablet (of 4 mg) Tablet Dispersable Oral t.i.d. PRN, Prochlorperazine Maleate 1 (10 mg) Tablet Oral q 4 hours PRN, traMADol HCl 1 (50 mg) Tablet Oral t.i.d. PRN Allergies: No Known Allergies. Review of Systems: Review of Systems is not available for this patient. Vital Signs: Vitals are not available for this patient. Performance Status: 0 - Fully active, able to carry on all predisease activities without restrictions. (ECOG) Physical Examination: Respiratory - Lungs are clear , Cardiovascular - Regular rate and rhythm of heart, Gastrointestinal - Soft, bowel sounds present, Extremities - No lower extremity edema or rash, but mild left upper extremity edema. Lab/Imaging: Test performed on Oct 04, 2019 09:30 Magnesium 1.2 mg/dL Sodium 145 mmol/L Potassium 3.6 mmol/L Chloride 104 mmol/L CO2 28 mmol/L Anion Gap 16.6 Glucose 97 mg/dL BUN 12 mg/dL Creatinine 1.1 mg/dL Cr Clearance (Est) 104.3300 mL/min eGFR 51.8 mL/min Calcium 7.3 mg/dL Test performed on Sep 28, 2019 09:17 Protein, Total 5.8 g/dL Albumin 3.8 g/dL Globulin 2.0 g/dL Bilirubin, Total 0.2 mg/dL ALT (SGPT) 57 U/L AST (SGOT) 29 U/L Alkaline Phosphatase 63 IU/L WBC 7.1 10 3/uL RBC 3.39 10 6/uL HGB 10.1 g/dL HCT 32.2 % MCV 95.0 fL MCH 29.8 pg MCHC 31.4 g/dL RDW 16.2 % Platelet Count 188 10 3/cmm MPV 9.9 fL Neutrophils 3.7 10 3/uL Lymphocytes 2.6 10 3/uL Monocytes 0.7 10 3/uL Eosinophils 0.0 10 3/uL Basophils 0.0 10 3/uL Neutrophil % 52.2 % Lymphocyte % 36.4 % Monocyte % 10.5 % Eosinophil % 0.0 % Basophils % 0.1 % NRBC % 0 % Impression: metastatic left breast cancer, with a left FDG positive axillary lymphadenopathy,and FDG positive right axillary lymphadenopathy, and left cervical level IV FDG positive lymph node per CT PET scan done on 05/05/2019 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 She has had port placement r(right internal jugular). discussed with Ms Gerard the CT PET scan findings, which showed metastatic disease to the bilateral axilla and level IVFDG positive left cervical lymph node. No other distant metastatic disease seen. Her echocardiogram shows ejection fraction 50-55%. recommended treatment with systemic therapy with pertuzumab/Herceptin/Taxotere every 3 weeks ???4-6 cycles and then evaluate with follow-up CT PET scan if it shows good response then consider surgical evaluation and radiation evaluation. Ms Gerard began her first cycle of chemotherapy on 05/31/2019. She did not receive Neulasta. Cycle 1 has been complicated thus far with persistent diarrhea and intermittent vomiting. As of day 15 the diarrhea and vomiting has subsided. Her follow-up CT PET scan showed excellent response with resolution of right axillary lymphadenopathy and left cervical lymph node also showed significant improvement. Including primary in the left breast. .Carboplatin was added to cycle #5 and 6 Taxotere/Perjeta/Herceptin and she completed her neoadjuvant chemotherapy total 6 cycles on September 12, 2019, subsequently underwent left mastectomy with axillary lymph node dissection on December 04, 2019 which showed excellent response to neoadjuvant chemotherapy now left with 0.8 mm invasive residual carcinoma and 0 out of 5 lymph node shows metastatic disease ypT1,pN0 Plan: Discussed with patient regarding her labs white blood count 8.1 hemoglobin 8.4 hematocrit 28.6 platelets 409,000 CMP within normal limits And her left mastectomy/axillary lymph node pathology which showed excellent response to neoadjuvant chemotherapy now only subcentimeter residual invasive tumor seen compared to extensive left breast involvement with overlying skin involvement and left cervical lymph node involvement as well as right axillary lymph node. Clinically, patient is doing well, has recovered well from left mastectomy, further treatment options were discussed, considering her age and extensive disease at the time of presentation at the same time excellent response to neoadjuvant chemotherapy with Herceptin/Perjeta/Taxotere and carboplatin was added after 4 cycles with cycle #5 and 6. Considering her young age and overall excellent performance status, will consider Kadcyla 3.6 mg/kg/m??? every 3 weeks x 14 unless follow-up CT PET scan shows metastatic disease. All the side effects possible benefits associated with Kadcyla including but not limited to bone marrow suppression, hepatic toxicity, cardiotoxicity, nausea vomiting, hair loss, generalized weakness and fatigue, increased risk for bleeding were mentioned, further teaching will be done by chemotherapy nurse, will obtain approval from her insurance prior to the treatment. We will also obtain echocardiogram to assess cardiac status prior to the treatment and then also refer her to radiation oncology for evaluation for post mastectomy radiation therapy. She return to clinic after echocardiogram done. Signed By: Annie Grijalva M.D. <<Signature on File>>
== END 2020-01-03 09:00 | disposition home or self-care (01) ==
LOC: ONCMED 09:00
PROVIDERS: Visit Provider Internal Medicine Hematology & Oncology
DX: C50.812 Malignant neoplasm of overlapping sites of left female breast (principal); C77.8 Secondary and unspecified malignant neoplasm of lymph nodes of multiple regions; Z17.1 Estrogen receptor negative status [ER-]; Z90.12 Acquired absence of left breast and nipple; Z79.899 Other long term (current) drug therapy
CPT/HCPCS: 36591; 80053; 85025; 99214

== ENCOUNTER 2020-01-22 08:27 | Outpatient (CLI) | payer MEDICAID, SELFPAY ==
--- NOTE | 2020-01-22 08:31 | NMCV_ITS ---
NM card bld pool r or s*[id number] Samir Gerard Age: 54 Gender: F : 1965 Exam Date: 01/22/2020 08:31 Ordering Phys: Annie Grijalva MD Technologist: HEAVEN Chavez Exam Location: [facility] Indications: Breast Cancer/ monitoring cardiotoxic drugs. Camera Used: [employer] Protocol: Technical Image Quality: Dose: Admin Site: Administered By: [id number] Tagged RBCs: 24.1 IV - Right HEAVEN Sylvester Antecubital PYP: EJECTION FRACTION: Automatic LV EF: 42 Rest RV EF: Manual LV EF: FINDINGS PROCEDURE: At the baseline, the patient was injected with 24.1 millicuries of technetium 99m, tagged onto RBCs, multiple images were obtained in the standard views. These images were obtained for left ventricular function analysis. FINDINGS: The left ventricle ejection fraction was estimated, both by manual and automatic methods. Ejection fraction [42]% by both methods. Left ventricular wall motion analysis grossly revealed mild global hypokinesis. CONCLUSIONS 1. Left ventricle ejection fraction is estimated to be 42% 2. Left ventricle wall motion analysis grossly revealed mild global hypokinesis. 3. No prior similar studies to compare. Brook Serrato MD (Electronically Signed) Final Date: 23 January 2020 10:22 S
== END 2020-01-22 08:28 | disposition home or self-care (01) ==
LOC: NM 08:28
PROVIDERS: PCP Nurse Practitioner Family; Visit Provider Internal Medicine Hematology & Oncology
DX: C50.812 Malignant neoplasm of overlapping sites of left female breast (principal); Z79.899 Other long term (current) drug therapy
CPT/HCPCS: 78472; A9560

== ENCOUNTER 2020-02-08 05:41 | Outpatient (RCR) | payer MEDICAID, SELFPAY ==
--- NOTE | 2020-01-16 10:27 | USCV_ITS ---
Samir Gerard Age: 54 Gender: F : 1965 Exam Date: 01/16/2020 11:11 Ordering Phys: Annie Grijalva MD Technologist: Dina Zambrano Exam Location: [facility] – [place] Indication: HIGH RISK MEDS BP: 134 / 65 HR: 68 Rhythm: Sinus Technical Quality: Technically difficult study MEASUREMENTS (Male / Female) Normal Values 2D ECHO LV Diastolic Diameter PLAX 6.1 cm 4.2 - 5.9 / 3.9 - 5.3 cm LV Systolic Diameter PLAX 5.6 cm IVS Diastolic Thickness 1.0 cm 0.6 - 1.0 / 0.6 - 0.9 cm IVS Systolic Thickness 1.4 cm LVPW Diastolic Thickness 2.1 cm 0.6 - 1.0 / 0.6 - 0.9 cm LVPW Systolic Thickness 1.9 cm LVOT Diameter 2.1 cm LV Ejection Fraction 2D Teich 17.4 % LA Diameter 3.7 cm LA Width 3.0 cm LA Height 3.5 cm RA Width 2.8 cm RA Height 3.8 cm Aorta at Sinotubular Diameter 3.1 cm M-MODE LV Diastolic Diameter MM 6.9 cm 4.2 - 5.9 / 3.9 - 5.3 cm LV Systolic Diameter MM 5.9 cm LV Ejection Fraction MM Teich 30.7 % IVS Diastolic Thickness MM 0.9 cm 0.6 - 1.0 / 0.6 - 0.9 cm IVS Systolic Thickness MM 1.2 cm LVPW Diastolic Thickness MM 0.9 cm 0.6 - 1.0 / 0.6 - 0.9 cm LVPW Systolic Thickness MM 1.3 cm Aortic Annulus Diameter 4.1 cm LA Ao Ratio MM 1.0 MV E Point Septal Separation 3.6 cm DOPPLER AV Peak Velocity 139.0 cm/s LVOT Peak Velocity 101.0 cm/s AV Area Cont Eq vti 2.6 cm squared AV Area Cont Eq pk 2.4 cm squared MV Area PHT 5.1 cm squared Mitral E to A Ratio 0.7 MV E' Velocity 46.0 cm/s Mitral E to MV E' Ratio 7.0 Mitral E to LV E' Lateral Ratio 6.0 Mitral E to LV E' Septal Ratio 8.4 TR Peak Velocity 168.8 cm/s TR Peak Gradient 11.4 mmHg TV Peak E Velocity 66.0 cm/s Right Atrial Pressure 3.0 mmHg Pulmonary Artery Systolic Pressu 14.4 mmHg PV Peak Velocity 77.0 cm/s RV Acceleration Time 0.2 s RV Ejection Time 0.4 s RV AcT/ET 0.5 FINDINGS Left Ventricle Mildly increased left ventricular cavity size. Diffuse hypokinesia of the left ventricle with ejection fraction of 31%.Grade I/IV diastolic dysfunction (abnormal relaxation filling pattern), normal to mildly elevated filling pressures. Right Ventricle Normal right ventricular size and systolic function. Right Atrium Normal right atrial size. Left Atrium Normal left atrial size. Mitral Valve Thickened mitral valve. Trace mitral valve regurgitation. Aortic Valve No gross abnormalities noted. Tricuspid Valve No gross abnormalities noted Pulmonic Valve Pulmonic valve not well visualized. Pericardium No pericardial effusion. Aorta Normal aortic annulus size. CONCLUSIONS Mildly increased left ventricular cavity size. Diffuse hypokinesia of the left ventricle with ejection fraction of 31%. Grade I/IV diastolic dysfunction (abnormal relaxation filling pattern), normal to mildly elevated filling pressures. Thickened mitral valve. Trace mitral valve regurgitation. There is no pericardial effusion. There are no intracardiac masses. Compared to the study from 09/26/2019, there is significant decline in the LV ejection fraction. Because of the technical difficulties, the ejection fraction estimation and the wall motion normalities are difficult. Consider MUGA scan or contrast echo to better evaluate the ejection fraction Dr Bryson Wang MD [facility] (Electronically Signed) Final Date: 16 January 2020 18:35 S
--- NOTE | 2020-01-16 23:50 | N.ONRAD NP_ITS ---
Radiation Oncology New Patient Visit Patient: Samir Gerard MR#: [id number] : 1965> Age: 54> Sex: Female> Dictated by: Dr. Joseph Cisneros Date of Service: 01/16/2020 Referring Physician(s) : Dr. 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 The tumor was HER-2 positive, ER/GA negative, positive dermal lymphatics involved, positive perineural invasion, and Ki-67 at 56%. The patient was treated with neoadjuvant chemotherapy with resultant resolution of bilateral FDG avid axillary adenopathy, followed by a left breast mastectomy and left axillary lymph node dissection. The right axilla was not pathologically assessed. Pathology from the left breast mastectomy and left axillary lymph node dissection (12/04/2019) revealed an 0.8 mm focus of residual grade 2 invasive carcinoma with extensive sclerosis, microinvasion less than 1 mm, a single positive adjacent focus identified in a capillary wall, margins negative by 3.9 cm, 0/5 involved regional lymph nodes which were sclerotic, and there was no involvement of the dermis. Purpose of Visit: Discuss the role of adjuvant radiotherapy with curative intent. History of Present Illness: The patient is a 54-year-old female was evaluated in the emergency room with progressive left breast inflammation, left nipple discharge, and left axillary adenopathy. A CT of the chest abdomen and pelvis (03/01/2019) revealed irregular left breast skin thickening concerning for malignancy and left axillary adenopathy measuring up to 2.3 cm. Furthermore, there was a sclerotic sternal lesion measuring 1.2 cm. Unfortunately, by report, the patient was not compliant with medical follow-up. The patient later sought medical evaluation and a subsequent diagnostic bilateral digital mammogram and ultrasound (03/29/2019) revealed left breast changes highly suspicious for inflammatory breast cancer with corresponding metastatic left axillary adenopathy. Furthermore there was soft tissue inflammatory changes in the medial right breast which was thought to be related to left breast inflammatory cancer crossing midline. There were further abnormal right axillary adenopathy that was suspicious for metastatic disease. A subsequent left breast biopsy (04/12/2019) revealed dermis with invasive carcinoma consistent with high-grade breast carcinoma, positive dermal lymphatics involved, positive perineural invasion, ER/GA negative, HER-2/eduar positive, and Ki-67 at 56%. A subsequent PET/CT (05/05/2019) revealed 2 sites of FDG avid nodular dermal thickening in the left breast. The dominant lesion measured 2.2 x 3.4 cm and the second in the lower inner quadrant of the left breast measured 1.4 cm. FDG avidity was also noted in the left axillary lymph nodes (largest node measuring 2.4 cm) and smaller yet FDG positive right axillary lymph nodes concerning for metastatic disease. In addition, there was an FDG avid left level 4 cervical lymph node. There was no further evidence for distant metastatic disease. The patient was treated with neoadjuvant chemotherapy and interval PET/CT (07/21/2019) revealed a favorable treatment response and resolved bilateral axillary FDG avidity (per the report of the reading radiologist -imaging unavailable for my review). The patient continued with chemotherapy, inclusive of Taxotere, Perjeta, carboplatin, and Herceptin followed by left mastectomy and left axillary dissection. In September 2019, the patient presented in medical oncology follow-up persistent left arm swelling. Work-up was negative for an upper extremity deep vein thrombosis or superficial thrombophlebitis on Doppler (10/12/2019), it was negative for intrathoracic venous involvement per CT of the chest (11/05/2019 versus 09/26/2019), it was negative for abnormality per a CT of the left shoulder (11/05/2019), and ultrasound of the left axilla was negative for pathologically appearing lymphadenopathy (11/22/2019), and her ejection fraction was 50-55%. Pathology from the left breast mastectomy and left axillary lymph node dissection (12/04/2019) revealed an 0.8 mm focus of residual grade 2 invasive carcinoma with extensive sclerosis, microinvasion less than 1 mm, a single positive adjacent focus identified in a capillary wall, margins negative by 3.9 cm, 0/5 involved regional lymph nodes which were sclerotic, and there was no involvement of the dermis. Resultant pathologic stage was ypT1 (mi) pN0. The patient is seen today in consultation and she reports that she is doing well after receiving chemotherapy. She reports no bone pain, but she does have left axillary lymphedema without range of motion difficulties in her left arm. Current Medications: Acetaminophen, allergy Relief, aloxi, cARBOplatin, cephalexin, dexamethasone, dexamethasone, dexamethasone Sodium Phosphate, diphenhydrAMINE HCl, diphenoxylate-Atropine, diphenoxylate-Atropine, dOCEtaxel, emend, famciclovir, famotidine in NaCl, fluconazole, fluconazole, herceptin, hYDROcodone-Acetaminophen, hYDROcodone-Acetaminophen, ibuprofen, klor-Con 10, klor-Con 10, lORazepam, lORazepam, magic mouthwash, neupogen, ondansetron, ondansetron, ondansetron HCl, perjeta, prochlorperazine Maleate, prochlorperazine Maleate, traMADol HCl. Allergies: No Known Allergies Medical History: - Anxiety, - depression, - gastroesophageal reflux disease. No history of collagen vascular disease. No previous radiation therapy. Surgical History: Left breast biopsy in 1999, left breast excisional biopsy on 04/12/2019 and right Internal J[place] A Cath-Dr Roberson ([facility] [place]) on 05/29/2019. Family History: Father is alive having experienced lung cancer. Mother is at age 75 having experienced breast cancer. Maternal Aunt has experienced breast cancer. Social History: Last screened on 01/03/2020 - Never smoked. Last screened on 01/03/2020 - Never drank. Patient indicated access to the following support systems: lives alone, lives in own house, supportive family/friends willing to assist with needs, and adequate transportation available for expected visits. Patient indicated the following nutritional habits: regular meals. Patient indicated participation in the following forms of activity: regular exercise. Current Complaints / Review of Systems: Constitutional - Complains of moderate fatigue. Denies lack of appetite, fever, night sweats and change in weight. Eyes - Denies blurred vision and double vision. ENMT - Complains of tinnitus. Denies dysphagia, ear pain, mouth dryness, stomatitis and altered taste. Neck - Denies neck pain. Integumentary - Denies rash. Breasts - Has no pain to the chest wall but had numbness. Cardiovascular - Complains of edema in the left arm and hand from [place]. Denies arrhythmias and chest pain. Respiratory - Complains of mild dyspnea associated with normal activity. Denies cough, hemoptysis and wheezing. Gastrointestinal - Complains of diarrhea had a little bit over the weekend and is no longer an issue. Denies abdominal pain, constipation, heartburn / dyspepsia, melena / GI bleeding, nausea and vomiting. Genitourinary (F) - Complains of nocturia gets up about 2 times per night. Denies dysuria, frequency, urgency, vaginal discharge / bleeding and vaginal spotting. Musculoskeletal - Complains of joint pain in both knees. Denies bone pain but has an ache to the left collar bone since surgery. Neurologic - Denies dizziness, abnormal gait and headaches. Endocrine - Denies diabetes and thyroid disease. Hematologic/Lymphatic - Denies tender or enlarged lymph nodes.. Vital Signs: Performed on 01/16/2020 9:11 AM BMI - 43.067 kg/m2 (high), Height - 65.00 in, Weight - 258.8 lbs, Temperature - 97.9 f, Pulse - 75, Respiration - 18, O2 Sat - 98 %, Pain - 0 and BP - 141/ 77 mm(hg)(high/). Physical Exam: GENERAL:??? The patient is alert, and in no acute distress. HEENT:??? Head is normocephalic. Face is symmetric. External ocular movements are intact. Sclera and conjunctivae are non erythematous. NECK:??? Trachea is midline.??? Thyroid is not enlarged by palpation.??? LYMPH NODES:??? There is no cervical or supraclavicular adenopathy bilaterally. Left anterior chest wall/right breast: A well-healed horizontal left mastectomy scar is appreciated which crosses midline. There is no palpable abnormality or physical exam findings consistent with disease recurrence. There is no palpable abnormality in the contralateral right breast or bilateral axilla. LUNGS:??? Clear to auscultation bilaterally. Respiratory movement is unlabored. HEART:??? Regular rate and rhythm. EXTREMITIES:???The patient has obvious left arm lymphedema. NEUROLOGIC:??? Gait and station are normal.??? The patient is well coordinated and strength is equal bilaterally. COUNTY ATTORNEY:??? Cranial nerves II-XII are intact and without focal deficits.??? Psych: Affect is normal. Skin: Cursory review of the skin reveals no obvious lesions concerning for malignancy. Pathology: Primary, c50.812 - malignant neoplasm of overlapping sites of left female breast, Diagnosed 04/30/2019 (active) and Primary, c50.912 - malignant neoplasm of unspecified site of left female breast, Diagnosed 04/30/2019 (active). Lab: Test performed on 09/28/2019 9:17 AM RBC - 3.39 10 6/ul (low), HGB - 10.1 g/dl (low), HCT - 32.2 % (low), RDW - 16.2 % (high), Protein, Total - 5.8 g/dl (low), ALT (SGPT) - 57 u/l (high), Test performed on 10/04/2019 9:30 AM Creatinine - 1.1 mg/dl (high), eGFR - 51.8 ml/min (low), Calcium - 7.3 mg/dl (low) and Magnesium - 1.2 mg/dl (low). Imaging: Radiographic imaging was personally reviewed by me with the exception of the PET/CT dated 07/2019. 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 The tumor was HER-2 positive, ER/GA negative, with positive dermal lymphatics involved, positive perineural invasion, and Ki-67 at 56%. Given the radiographic evidence of FDG avid dermal thickening crossing midline to the contralateral right breast, a second primary breast cancer was considered less likely. The patient was treated with neoadjuvant chemotherapy with interim resultant resolution of bilateral FDG avid axillary adenopathy, followed by a left breast mastectomy and left axillary lymph node dissection. The right axillary adenopathy was not pathologically assessed and there was no clinically evident primary abnormality in the contralateral right breast. Pathology from the left breast mastectomy and left axillary lymph node dissection (12/04/2019) revealed an 0.8 mm focus of residual grade 2 invasive carcinoma with extensive sclerosis, microinvasion less than 1 mm, a single positive adjacent focus identified in a capillary wall, margins negative by 3.9 cm, 0/5 involved regional lymph nodes which were sclerotic, and there was no involvement of the dermis. The patient continues with Herceptin. I offered the patient comprehensive postmastectomy radiation therapy to include the left chest wall (inclusive of daily bolus), left internal mammary lymph nodes, left level 1 through 3 lymph nodes, and left level 4 cervical lymph node chain. I plan to administer 50 Gy in 25 fractions followed by a left mastectomy scar boost of 10 Gy/5 fractions. Given the patient's body habitus, close proximity of the heart to the chest wall (i.e., it abuts the chest wall on several axial slices), and the need to include the internal mammary lymph nodes, IMRT radiation therapy will be required to mitigate risks associated with cardiac dose. The patient's left arm edema is perplexing especially since it occurred at least 2 months prior to her surgical resection. Despite extensive work-up (i.e., venous Doppler, CT chest x 2, CT of the left shoulder, repeat ultrasound of the left axilla, and normal ejection fraction) an etiology has not yet been found. I will discuss this case with Dr Grijalva and consider a CT or MR venogram. By report, the patient's insurance company will not pay for physical therapy to address her left arm lymphedema. The patient was recommended to do daily yoga (YouTube link shared with the patient) and reduce her body mass index in an effort to improve her left arm edema and overall oncologic outcome. Signed by: Joseph Cisneros MD 01/16/2020 11:48:52 PM <<Signature on File>> Time spent with patient: CPT Code: CPT Code:
[2020-01-17 11:39] LABS: Basophils % 0.3 %; Eosinophils # 0.1 10^3/uL (0.0-0.8); Eosinophils % 1.2 %; Hematocrit 29.5 % (37.0-47.0); Hemoglobin 8.8 g/dL (11.5-15.3); Lymphocytes # 2.1 10^3/uL (0.8-4.8); Lymphocytes % 23.2 %; Mean Corpuscular HGB Conc 29.8 g/dL (30.0-36.0); Mean Corpuscular Volume 90.5 fL (81-99); Monocytes # 0.8 10^3/uL (0.2-0.9); Monocytes % 8.2 %; Neutrophils # 6.08 10^3/uL (1.8-7.7); Neutrophils % 66.9 %; Nucleated Red Blood Cells % 0 %; Platelet Count 387 10^3/cmm (130-400); Red Blood Count 3.26 10^6/uL (4.1-5.3); Red Cell Distribution Width 14.7 % (12.1-15.1); White Blood Count 9.1 10^3/uL (4.0-10.0)
[2020-01-17 12:05] LABS: Alanine Aminotransferase 11 U/L (0-33); Albumin Level 3.7 g/dL (3.5-5.2); Alkaline Phosphatase 71 IU/L (35-105); Anion Gap 13.6 (5-19); Aspartate Amino Transferase 16 U/L (0-32); Blood Urea Nitrogen 21 mg/dL (6-20); Calcium 8.9 mg/dL (8.5-10.5); Carbon Dioxide 26 mmol/L (22-29); Chloride 106 mmol/L (98-107); Globulin 3.2 g/dL (1.3-4.6); Glomerular Filtration Rate 57.6 mL/min (90-130); Glucose 102 mg/dL (65-115); Osmolality Calculated 297 mOsm/kg (285-295); Potassium 3.6 mmol/L (3.5-5.1); Sodium 142 mmol/L (136-145); Total Bilirubin 0.2 mg/dL (0.15-1.2); Total Protein 6.9 g/dL (6.6-8.7)
--- NOTE | 2020-01-17 15:59 | ONC FU_ITS ---
Dr. Grijalva follow up note Patient: Samir Gerard Unit #: [id number]: 1965 Dicatated By: Annie Grijalva M.D.Date of Visit:Jan 17, 2020 Onc Med Follow-up/Prog Note History of Present Illness: Ms. Gerard is a 54-year-old female with history of left breast mass. She underwent biopsy about 20 years ago and it was negative, showed fibrous tissue only. Since then, she had no more follow-up mammograms until about 2 months ago when she went to emergency room with left breast 'inflammation'and progressive swelling and left axillary lymphadenopathy. A,t that time she was referred to oncology but did not follow through, but continue to follow with primary care. Eventually on 04/10/2019 she was referred to surgery. Dr. Montenegro evaluated her and she underwent left breast biopsy on 04/12/2019.v The biopsy reported invasive carcinoma, high-grade with dermal lymphatics involvement and perineural invasion. Identified also involvement of dermis e.g. 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 She presented with complaints of clear fluid oozing from the left breast skin and nipple as well as left axillary fullness. The left breast was swollen with overlying skin changes including under left axilla. Family history significant for mother with breast cancer and maternal aunt with breast cancer. She began menses patient at age 10 and has had no pregnancies. Ms Gerard has chronic discomfort/pain in her left upper back and left axilla. And whole left breast was swollen with overlying skin changes with off-and-on serosanguineous discharge from the nipple and skin. follow-up CT PET scan done on 05/05/2019 Showed 2 sites of FDG positive nodular dermal thickening in the left breast. Dominant lesion measures 2.2 x 3.4 cm with SUV of 14.7. And second lower inner quadrant lesion measured 1.4 cm with SUV of 9.7. Left axillary lymph nodes enlarged and FDG positive with index node measured 2.4 cm with SUV of 6.2. Additionally there are smaller but FDG positive lymph nodes. A left level IV cervical node measuring 1 cm has SUV of 4.8 indicating distant metastatic disease. Right axillary lymph node FDG positive, consistent with metastatic disease. Dr Grijalva discussed with Ms Gerard the CT PET scan findings, which showed metastatic disease to the bilateral axilla and level IVFDG positive left cervical lymph node. No other distant metastatic disease seen. Her echocardiogram shows ejection fraction 50-55%. Her recommended treatment was systemic therapy with pertuzumab/Herceptin/Taxotere every 3 weeks ???4-6 cycles and then evaluate with follow-up CT PET scan if it shows good response then consider surgical evaluation and radiation evaluation. Echocardiogram done on 05/09/2019 showed ejection fraction 50-55%. Ms Gerard began her first cycle of chemotherapy on 05/31/2019. Follow-up CT PET scan done after 3 cycles of systemic therapy on 07/21/2019 showed left breast dermal uptake is improved, now SUV is 5.7 compared to 14.7 previously. The index left axillary lymph node now measure 1.7 cm and is FDG negative. Right hilar lymph nodes are now subcentimeter in size and FDG negative. And left level IV cervical node is now subcentimeter in size and has minimal FDG uptake. Follow-up echo done on September 26, 2019 showed ejection fraction around 50%, discussed with Dr. Serrato, no significant change when compared with echo done prior to the treatment. CT scan of chest was done on September 26, 2019 because of persistent left arm swelling with normal venous Doppler study and it showed left axilla did not show any mass or lymphadenopathy. There is a thickening of left breast fissure. Solitary gallstone. Case was discussed with radiologist today, there is no evidence of venous thrombosis but somewhat narrowing of vein in the left axilla. Patient underwent left total mastectomy with axillary lymph node dissection done on December 04, 2019 showed 0.8 mm focus of residual carcinoma with extensive sclerosis related to post neoadjuvant therapy and 5 left axillary lymph nodes were evaluated showed sclerosis but no evidence of metastatic disease. ypT1 pN0 , patient recently underwent left mastectomy with axillary lymph node dissection showed excellent response to neoadjuvant chemotherapy now left with subcentimeter invasive disease with no left axillary lymph node involvement compared to extensive left breast involvement with skin involvement and palpable left axillary lymphadenopathy Follow-up echocardiogram done on January 16, 2020 showed technically difficult study, mildly increased left ventricular cavity size, diffuse hypokinesia of left ventricle with ejection fraction 31% compared to study from September 26, 2019 there is a significant decline in LV ejection fraction. Because of technical difficulties ejection fraction estimation and wall motion evaluation is difficult so MUGA scan was recommended Came for follow-up, denies any specific complaints, no fever chills, no nausea or vomiting, no diarrhea constipation but generalized weakness and fatigue but no lower extremity edema breath no orthopnea, no palpitation or tachycardia. She has persistent left arm swelling, DVT was ruled out, Medications: Allergy Relief 1 Tablet (of 4 mg) Oral daily PRN, Dexamethasone (4 mg) Tablet Oral Take as Directed, Diphenoxylate-Atropine 1 Tablet (of 2.5-0.025 mg) Oral four times a day PRN, Fluconazole 1 Tablet (of 100 mg) Oral daily, HYDROcodone-Acetaminophen 1 - 2 Tablet (of 5-325 mg) Oral q 4 hours PRN, Ibuprofen 2 - 3 Tablet (of 200 mg) Oral PRN, Klor-Con 10 1 Tablet (of 10 meq) Tablet, controlled release Oral daily, LORazepam 0.5 - 1 Tablet (of 1 mg) Oral t.i.d. PRN, magic mouthwash 2 mL Liquid t.i.d., Ondansetron 1 Tablet (of 4 mg) Tablet Dispersable Oral t.i.d. PRN, Prochlorperazine Maleate 1 (10 mg) Tablet Oral q 4 hours PRN, traMADol HCl 1 (50 mg) Tablet Oral t.i.d. PRN Allergies: No Known Allergies. Review of Systems: Constitutional - Appetite is fair and weight is stable. No fever, chills. Positive for hot flashes and night sweats. Energy level is fair, ENMT - No sinus congestion/drainage. No mouth sores. No sore throat. Occasional difficulty swallowing, Hematologic/Lymphatic - No abnormal bruising or bleeding, Respiratory - No shortness of breath. No cough. No pleuritic pain or hemoptysis, Cardiovascular - No angina pain. No palpitations, Gastrointestinal - Positive for nausea and occasional vomiting. Positive for heartburn, no acid reflux. No diarrhea or constipation. No blood in the stool or black stools, Genitourinary (F) - No dysuria or hematuria. Positive for urinary frequency. No urgency or incontinence, Musculoskeletal - Positive for joint pain, Integumentary - edema noted in left arm, Neurologic - No headache or dizziness. No numbness/paresthesias or other focal neurologic symptoms, Psychiatric - Positive for anxiety and depression. Vital Signs: Performed on Jan 17, 2020 13:09 Height - 65.00 in Weight - 258.0 lbs (LOW) BSA - 2.20 sq.m BMI - 42.93 (HIGH) Temperature - 98.1 F (LOW) Pulse - 79 /min Respiration - 20 /min BP - 138/70 mm(hg) O2 Sat - 96 % Pain - 0 Performance Status: 0 - Fully active, able to carry on all predisease activities without restrictions. (ECOG) Physical Examination: Respiratory - Lungs are clear to auscultation, Cardiovascular - Regular rate and rhythm of heart, Gastrointestinal - Soft, bowel sounds present, Extremities - No visible edema. Lab/Imaging: Test performed on Oct 04, 2019 09:30 Magnesium 1.2 mg/dL Sodium 145 mmol/L Potassium 3.6 mmol/L Chloride 104 mmol/L CO2 28 mmol/L Anion Gap 16.6 Glucose 97 mg/dL BUN 12 mg/dL Creatinine 1.1 mg/dL Cr Clearance (Est) 104.3300 mL/min eGFR 51.8 mL/min Calcium 7.3 mg/dL Test performed on Sep 28, 2019 09:17 Protein, Total 5.8 g/dL Albumin 3.8 g/dL Globulin 2.0 g/dL Bilirubin, Total 0.2 mg/dL ALT (SGPT) 57 U/L AST (SGOT) 29 U/L Alkaline Phosphatase 63 IU/L WBC 7.1 10 3/uL RBC 3.39 10 6/uL HGB 10.1 g/dL HCT 32.2 % MCV 95.0 fL MCH 29.8 pg MCHC 31.4 g/dL RDW 16.2 % Platelet Count 188 10 3/cmm MPV 9.9 fL Neutrophils 3.7 10 3/uL Lymphocytes 2.6 10 3/uL Monocytes 0.7 10 3/uL Eosinophils 0.0 10 3/uL Basophils 0.0 10 3/uL Neutrophil % 52.2 % Lymphocyte % 36.4 % Monocyte % 10.5 % Eosinophil % 0.0 % Basophils % 0.1 % NRBC % 0 % Impression: metastatic left breast cancer, with a left FDG positive axillary lymphadenopathy,and FDG positive right axillary lymphadenopathy, and left cervical level IV FDG positive lymph node per CT PET scan done on 05/05/2019 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 She has had port placement r(right internal jugular). discussed with Ms Gerard the CT PET scan findings, which showed metastatic disease to the bilateral axilla and level IVFDG positive left cervical lymph node. No other distant metastatic disease seen. Her echocardiogram shows ejection fraction 50-55%. recommended treatment with systemic therapy with pertuzumab/Herceptin/Taxotere every 3 weeks ???4-6 cycles and then evaluate with follow-up CT PET scan if it shows good response then consider surgical evaluation and radiation evaluation. Ms Gerard began her first cycle of chemotherapy on 05/31/2019. She did not receive Neulasta. Cycle 1 has been complicated thus far with persistent diarrhea and intermittent vomiting. As of day 15 the diarrhea and vomiting has subsided. Her follow-up CT PET scan showed excellent response with resolution of right axillary lymphadenopathy and left cervical lymph node also showed significant improvement. Including primary in the left breast. .Carboplatin was added to cycle #5 and 6 Taxotere/Perjeta/Herceptin and she completed her neoadjuvant chemotherapy total 6 cycles on September 12, 2019, subsequently underwent left mastectomy with axillary lymph node dissection on December 04, 2019 which showed excellent response to neoadjuvant chemotherapy now left with 0.8 mm invasive residual carcinoma and 0 out of 5 lymph node shows metastatic disease ypT1,pN0 Plan: Discussed with patient regarding her labs white blood count 9.1 hemoglobin 8.8 hematocrit 29.5 platelets 387,000 CMP within normal limits and her recently done echocardiogram on January 16, 2020 which showed ejection fraction 31%, significant drop from her last ejection fraction from September 2019 but in the report it was mentioned it was a technically difficult study and ejection fraction estimation was not easy to calculate so MUGA scan was recommended. And moreover patient has no signs symptom suggestive of congestive heart failure, we will consider MUGA scan to confirm the ejection fraction and if it shows significant change in ejection fraction then we will refer her to cardiology for evaluation and also refer her to breast cancer clinic in [facility] for evaluation regarding further treatment and HER-2/eduar positive disease now with possibly cardiac toxicity due to anti-HER-2/edaur therapy. As far as mild/moderate anemia is concerned, hemoglobin stable, will consider anemia work-up which includes iron studies B12 folic acid level and then patient will return to clinic after MUGA scan for further discussion. Patient was also referred to radiation oncology for post mastectomy radiation therapy for locally advanced disease. Signed By: Annie Grijalva M.D. <<Signature on File>>
[2020-01-18 09:23] LABS: Ferritin 26 ng/mL (15-150); Iron 28 ug/dL (37-145); Percent Saturation 10.5 % (20-50); Total Iron Binding Capacity 265 mcg/dl; Unsaturated Iron Binding 237 ug/dL (112-347)
[2020-01-18 09:36] LABS: Vitamin B12 304 pg/mL (232-1245)
--- NOTE | 2020-01-21 | CT_ITS ---
Radiation Therapy Planning CT images; total exam DLP:1259.82 mGy-cm MTDD
--- NOTE | 2020-01-29 16:09 | ONCRAD TMN_ITS ---
Radiation Oncology Weekly Treatment Management Patient: Rajani Dawson MR#: [id number] : 1965 Age: 54 Sex: Female Dictated by: Dr. Joseph Cisneros Date of Service: 01/29/2020 Referring Physician(s) : Dr. 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 The tumor was HER-2 positive, ER/ND negative, positive dermal lymphatics involved, positive perineural invasion, and Ki-67 at 56%. The patient was treated with neoadjuvant chemotherapy with resultant resolution of bilateral FDG avid axillary adenopathy and clinical erythema. This was followed by a left breast mastectomy and left axillary lymph node dissection. The right axilla was not pathologically assessed before or after neoadjuvant chemotherapy. Pathology from the left breast mastectomy and left axillary lymph node dissection (12/04/2019) revealed an 0.8 mm focus of residual grade 2 invasive carcinoma with extensive sclerosis, microinvasion less than 1 mm, a single positive adjacent focus identified in a capillary wall, margins negative by 3.9 cm, 0/5 involved regional lymph nodes which were sclerotic, and there was no involvement of the dermis. Treatment plan: Adjuvant comprehensive postmastectomy radiation therapy to include the left chest wall (inclusive of a ??? cm daily bolus as tolerated), left internal mammary lymph nodes, left level 1 through 3 axillary lymph nodes, and the left level 4 cervical lymph node chain. I plan to administer 50 Gy in 25 fractions followed by a left mastectomy scar boost of 10 Gy/5 fractions. It should also be noted, that 2 cm around the surgical incision on the contralateral breast to a depth of 1 cm is also being covered in this IMRT radiation therapy plan. In the event that cancer is later documented in the contralateral right breast, necessitating a right mastectomy, this patient's treatment options would not be materially complicated. In that event, the surgical resection would remove a 2 cm margin around the surgical scar on the right breast and approximate the resected skin with healthy tissue. Thus, potential postmastectomy radiation therapy to the right chest wall would not be overly complicated because the previously irradiated region of skin would be resected. Given the patient's body habitus, close proximity of the heart to the chest wall (i.e., the heart abuts the chest wall on several axial slices), and the need to include the internal mammary lymph nodes, IMRT radiation therapy was required to reduce cardiac risks associated with therapy. Multiple plan attempts were completed to reduce cardiac dose, which resulted in this patient???s planned mean cardiac dose to be ~16 to 17 Gy and the heart???s volume that receives 25 Gy is <3.5%. This translates into a low overall risk of less than 1% for long goods drier cardiac mortality (Banuelos et al ??? QUANTEC ??? IJROBP 2010). The patient's left arm edema is perplexing especially since it occurred at least 2 months prior to her surgical resection. Despite extensive work-up (i.e., venous Doppler, CT chest x 2, CT of the left shoulder, and repeat ultrasound of the left axilla) an etiology has not yet been found. I have discussed this case with both Dr Grijalva and Dr Dietrich. Radiotherapy to date: Course: LT Chest Wall, Treatment Site: LT ChestWall, Ref. ID: [id number], Energy: 15X, Dose/Fx (cGy): 200, #Fx: , Dose Correction (cGy): 0, Total Dose (cGy): 400, Start Date: 01/28/2020, Elapsed Days: 1 Reason for visit: The patient is being seen today as part of their regularly scheduled weekly on treatment visits to assess for acute toxicities from radiotherapy. Interim History: The patient reports no acute side effects from treatment thus far. Current Medications: Acetaminophen, allergy Relief, aloxi, cARBOplatin, cephalexin, dexamethasone, dexamethasone, dexamethasone Sodium Phosphate, diphenhydrAMINE HCl, diphenoxylate-Atropine, diphenoxylate-Atropine, dOCEtaxel, emend, famciclovir, famotidine in NaCl, fluconazole, fluconazole, herceptin, hYDROcodone-Acetaminophen, hYDROcodone-Acetaminophen, ibuprofen, klor-Con 10, klor-Con 10, lORazepam, lORazepam, magic mouthwash, neupogen, ondansetron, ondansetron, ondansetron HCl, perjeta, prochlorperazine Maleate, prochlorperazine Maleate, traMADol HCl. Allergies: No Known Allergies Current Complaints/Review of Systems: Constitutional - Complains of mild fatigue. Denies lack of appetite, fever, night sweats and change in weight. ENMT - Denies dysphagia. Integumentary - Has no redness the left chest wall. Breasts - Has no left chest wall pain. Cardiovascular - Complains of edema in the left upper extremity. Denies arrhythmias and chest pain. Respiratory - Complains of a mild cough occasionally. Denies dyspnea and wheezing. Vital Signs: Performed on 01/29/2020 11:44 AM BMI - 43.633 kg/m2 (high), Height - 65.00 in, Weight - 262.2 lbs, Temperature - 98.1 f, Pulse - 76, Respiration - 18, O2 Sat - 100 %, Pain - 0 and BP - 135/ 82 mm(hg). Physical Exam: Appears stable, no skin erythema or desquamation. Performance Status: 0 - Fully active, able to carry on all predisease activities without restrictions. (ECOG) Lab: None pending in Radiation Oncology. Imaging: Radiation therapy imaging related to accurate target localization (i.e. KV, MV and CBCT) was reviewed. Appropriate changes, if any, were made to ensure treatment accuracy. Plan: The patient is tolerating therapy reasonably well. Radiotherapy will continue as planned. CPT: 45883 Signed by: Dr. Joseph Cisneros 01/29/2020 4:07:28 PM
--- NOTE | 2020-02-06 18:51 | ONCRAD TMN_ITS ---
Radiation Oncology Weekly Treatment Management Patient: Samir Gerard MR#: [id number] : 1965 Age: 54 Sex: Female Dictated by: Dr. Joseph Cisneros Date of Service: 02/05/2020 Referring Physician(s) : Dr. 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 The tumor was HER-2 positive, ER/MA negative, positive dermal lymphatics involved, positive perineural invasion, and Ki-67 at 56%. The patient was treated with neoadjuvant chemotherapy with resultant resolution of bilateral FDG avid axillary adenopathy and clinical erythema. This was followed by a left breast mastectomy and left axillary lymph node dissection. The right axilla was not pathologically assessed before or after neoadjuvant chemotherapy. Pathology from the left breast mastectomy and left axillary lymph node dissection (12/04/2019) revealed an 0.8 mm focus of residual grade 2 invasive carcinoma with extensive sclerosis, microinvasion less than 1 mm, a single positive adjacent focus identified in a capillary wall, margins negative by 3.9 cm, 0/5 involved regional lymph nodes which were sclerotic, and there was no involvement of the dermis. Treatment plan: Adjuvant comprehensive postmastectomy radiation therapy to include the left chest wall (inclusive of a ??? cm daily bolus as tolerated), left internal mammary lymph nodes, left level 1 through 3 axillary lymph nodes, and the left level 4 cervical lymph node chain. I plan to administer 50 Gy in 25 fractions followed by a left mastectomy scar boost of 10 Gy/5 fractions. It should also be noted, that 2 cm around the surgical incision on the contralateral breast to a depth of 1 cm is also being covered in this IMRT radiation therapy plan due to clinical involvement. In the event that cancer is later documented in the contralateral right breast, necessitating a right mastectomy, this patient's treatment options would not be materially complicated. In that event, the surgical resection would remove a 2 cm margin around the surgical scar on the right breast and approximate the resected skin with healthy tissue. Thus, potential postmastectomy radiation therapy to the right chest wall would not be materially complicated, because the previously irradiated region of skin would be resected while the meaningful dose administered to the contralateral chest wall is limited to = 2.3 cm lateral to the medial border of the upper sternum. Thus, tangents with a hard field edge stop of 3 cm lateral to the sternum could be considered if future right chest wall irradiation is indicated. Given the patient's body habitus, close proximity of the heart to the chest wall (i.e., the heart abuts the chest wall on several axial slices), and the need to include the internal mammary lymph nodes, IMRT radiation therapy was required to reduce cardiac risks associated with therapy. Multiple plan attempts were completed to reduce cardiac dose, which resulted in this patient???s planned mean cardiac dose to be ~16 to 17 Gy and the heart???s volume that receives 25 Gy is <3.5%. According to Vin et al ??? QUANTEC ??? IJROBP 2010, this could potentially translate into a low overall risk of less than 1% for intermediate cardiac mortality. However, given the patient's cardiac risks associated with systemic therapy (i.e., HER-2 positive disease and subsequent reduced ejection fraction due to chemotherapy), coupled with radiation therapy with a mean cardiac dose greater than 5 Gy, this patient's cardiac function warrants close monitoring. It is also understood that this patient's aggressive breast cancer and short-term risks for recurrence currently outweighs potential long-term cardiac risk factors associated with treatment. The patient's left arm edema is perplexing especially since it occurred at least 2 months prior to her surgical resection. Despite extensive work-up (i.e., venous Doppler, CT chest x 2, CT of the left shoulder, and repeat ultrasound of the left axilla) an etiology has not yet been found. I have discussed this case with both Dr Grijalva and Dr Dietrich. Radiotherapy to date: Course: LT Chest Wall, Treatment Site: LT ChestWall, Ref. ID: [id number], Energy: 15X, Dose/Fx (cGy): 200, #Fx: , Dose Correction (cGy): 0, Total Dose (cGy): 1,400, Start Date: 01/28/2020, Elapsed Days: 8 Reason for visit: The patient is being seen today as part of their regularly scheduled weekly on treatment visits to assess for acute toxicities from radiotherapy. Interim History: The patient reports no complaints today. Current Medications: Acetaminophen, allergy Relief, aloxi, cARBOplatin, cephalexin, dexamethasone, dexamethasone, dexamethasone Sodium Phosphate, diphenhydrAMINE HCl, diphenoxylate-Atropine, diphenoxylate-Atropine, dOCEtaxel, emend, famciclovir, famotidine in NaCl, fluconazole, fluconazole, herceptin, hYDROcodone-Acetaminophen, hYDROcodone-Acetaminophen, ibuprofen, klor-Con 10, klor-Con 10, lORazepam, lORazepam, magic mouthwash, neupogen, ondansetron, ondansetron, ondansetron HCl, perjeta, prochlorperazine Maleate, prochlorperazine Maleate, traMADol HCl. Allergies: No Known Allergies Current Complaints/Review of Systems: Constitutional - Complains of moderate fatigue. Denies lack of appetite, fever, night sweats and change in weight. Integumentary - Has no redness to the left chest wall. Breasts - No chest wall pain. Cardiovascular - Complains of edema in the left arm. Denies chest pain. Respiratory - Denies cough, dyspnea and wheezing. Vital Signs: Performed on 02/05/2020 8:54 AM BMI - 42.634 kg/m2 (high), Height - 65.00 in, Weight - 256.2 lbs, Temperature - 98.3 f, Pulse - 92, Respiration - 20, O2 Sat - 100 %, Pain - 3 and BP - 141/ 83 mm(hg)(high/). Physical Exam: Minor skin erythema is appreciated and there is no evidence of desquamation. The patient's left arm edema appears larger on today's examination. Performance Status: 0 - Fully active, able to carry on all predisease activities without restrictions. (ECOG) Lab: None pending in Radiation Oncology. Test performed on 09/28/2019 9:17 AM RBC - 3.39 10 6/ul (low), HGB - 10.1 g/dl (low), HCT - 32.2 % (low), RDW - 16.2 % (high), Protein, Total - 5.8 g/dl (low), ALT (SGPT) - 57 u/l (high), Test performed on 10/04/2019 9:30 AM Creatinine - 1.1 mg/dl (high), eGFR - 51.8 ml/min (low), Calcium - 7.3 mg/dl (low) and Magnesium - 1.2 mg/dl (low). Imaging: Radiation therapy imaging related to accurate target localization (i.e. KV, MV and CBCT) was reviewed. Appropriate changes, if any, were made to ensure treatment accuracy. Plan: The patient is tolerating therapy reasonably well. Radiotherapy will continue as planned. The patient was recommended to undergo evaluation and treatment at the lymphedema clinic. CPT: 57106 Signed by: Dr. Joseph Cisneros 02/06/2020 6:50:12 PM
== END 2020-02-09 23:59 | disposition home or self-care (01) ==
LOC: ONCMED 05:41
PROVIDERS: Internal Medicine Hematology & Oncology; Visit Provider Radiology Radiation Oncology
DX: Z51.0 Encounter for antineoplastic radiation therapy (principal); C50.812 Malignant neoplasm of overlapping sites of left female breast; Z51.81 Encounter for therapeutic drug level monitoring; Z79.899 Other long term (current) drug therapy; D64.9 Anemia, unspecified; I89.0 Lymphedema, not elsewhere classified; Z17.1 Estrogen receptor negative status [ER-]; Z90.12 Acquired absence of left breast and nipple; Z92.21 Personal history of antineoplastic chemotherapy
CPT/HCPCS: 36591; 77300; 77301; 77336; 77338; 77385; 77386; 80053; 82607; 82728; 83540; 83550; 85025; 85045; 93306; 99214; 99215

== ENCOUNTER 2020-02-08 12:30 | Outpatient (RCR) | payer SELFPAY | END 2020-02-09 23:59 | disposition home or self-care (01) | LOC: SPT 12:30 | PROVIDERS: PCP Nurse Practitioner Family; Referring Provider Radiology Radiation Oncology; Visit Provider Radiology Radiation Oncology | DX: I89.0 Lymphedema, not elsewhere classified (principal); Z90.12 Acquired absence of left breast and nipple; C50.912 Malignant neoplasm of unspecified site of left female breast | CPT/HCPCS: 97140; 97161 ==

== ENCOUNTER 2020-02-10 06:00 | Outpatient (RCR) | payer SELFPAY | END 2020-03-10 23:59 | disposition home or self-care (01) | LOC: SPT 06:00 | PROVIDERS: PCP Nurse Practitioner Family; Referring Provider Radiology Radiation Oncology; Visit Provider Radiology Radiation Oncology | DX: C50.912 Malignant neoplasm of unspecified site of left female breast (principal); I89.0 Lymphedema, not elsewhere classified; Z90.12 Acquired absence of left breast and nipple | CPT/HCPCS: 97140 ==

== ENCOUNTER 2020-03-10 05:19 | Outpatient (RCR) | payer MEDICAID, SELFPAY ==
--- NOTE | 2020-02-12 09:20 | ONCRAD TMN_ITS ---
Radiation Oncology Weekly Treatment Management Patient: Rajani Dawson MR#: [id number] : 1965 Age: 54 Sex: Female Dictated by: Dr. Joseph Cisneros Date of Service: 02/12/2020 Referring Physician(s) : Dr. 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 The tumor was HER-2 positive, ER/MT negative, positive dermal lymphatics involved, positive perineural invasion, and Ki-67 at 56%. The patient was treated with neoadjuvant chemotherapy with resultant resolution of bilateral FDG avid axillary adenopathy and clinical erythema. This was followed by a left breast mastectomy and left axillary lymph node dissection. The right axilla was not pathologically assessed before or after neoadjuvant chemotherapy. Pathology from the left breast mastectomy and left axillary lymph node dissection (12/04/2019) revealed an 0.8 mm focus of residual grade 2 invasive carcinoma with extensive sclerosis, microinvasion less than 1 mm, a single positive adjacent focus identified in a capillary wall, margins negative by 3.9 cm, 0/5 involved regional lymph nodes which were sclerotic, and there was no involvement of the dermis. Treatment plan: Adjuvant comprehensive postmastectomy radiation therapy to include the left chest wall (inclusive of a ??? cm daily bolus as tolerated), left internal mammary lymph nodes, left level 1 through 3 axillary lymph nodes, and the left level 4 cervical lymph node chain. I plan to administer 50 Gy in 25 fractions followed by a left mastectomy scar boost of 10 Gy/5 fractions. It should also be noted, that 2 cm around the surgical incision on the contralateral breast to a depth of 1 cm is also being covered in this IMRT radiation therapy plan due to clinical involvement. In the event that cancer is later documented in the contralateral right breast, necessitating a right mastectomy, this patient's treatment options would not be materially complicated. In that event, the surgical resection would remove a 2 cm margin around the surgical scar on the right breast and approximate the resected skin with healthy tissue. Thus, potential postmastectomy radiation therapy to the right chest wall would not be materially complicated, because the previously irradiated region of skin would be resected while the meaningful dose administered to the contralateral chest wall is limited to = 2.3 cm lateral to the medial border of the upper sternum. Thus, tangents with a hard field edge stop of 3 cm lateral to the sternum could be considered if future right chest wall irradiation is indicated. Given the patient's body habitus, close proximity of the heart to the chest wall (i.e., the heart abuts the chest wall on several axial slices), and the need to include the internal mammary lymph nodes, IMRT radiation therapy was required to reduce cardiac risks associated with therapy. Multiple plan attempts were completed to reduce cardiac dose, which resulted in this patient???s planned mean cardiac dose to be ~16 to 17 Gy and the heart???s volume that receives 25 Gy is <3.5%. According to Vin et al ??? QUANTEC ??? 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 However, given the patient's cardiac risks associated with systemic therapy (i.e., HER-2 positive disease and subsequent reduced ejection fraction due to chemotherapy), coupled with radiation therapy with a mean cardiac dose greater than 5 Gy, this patient's cardiac function warrants close monitoring. It is also understood that this patient's aggressive breast cancer and short-term risks for recurrence currently outweighs potential long-term cardiac risk factors associated with treatment. The patient's left arm edema is perplexing especially since it occurred at least 2 months prior to her surgical resection. Despite extensive work-up (i.e., venous Doppler, CT chest x 2, CT of the left shoulder, and repeat ultrasound of the left axilla) an etiology has not yet been found. I have discussed this case with both Dr Grijalva and Dr Dietrich. The patient is currently being treated with lymphedema therapy by the lymphedema clinic. Radiotherapy to date: Course: LT Chest Wall, Treatment Site: LT ChestWall, Ref. ID: [id number], Energy: 15X, Dose/Fx (cGy): 200, #Fx: , Dose Correction (cGy): 0, Total Dose (cGy): 2,400, Start Date: 01/28/2020, Elapsed Days: 15 Reason for visit: The patient is being seen today as part of their regularly scheduled weekly on treatment visits to assess for acute toxicities from radiotherapy. Interim History: The patient reports mild swallowing difficulties, and minor skin irritation. Current Medications: Acetaminophen, allergy Relief, aloxi, cARBOplatin, cephalexin, dexamethasone, dexamethasone, dexamethasone Sodium Phosphate, diphenhydrAMINE HCl, diphenoxylate-Atropine, diphenoxylate-Atropine, dOCEtaxel, emend, famciclovir, famotidine in NaCl, fluconazole, fluconazole, herceptin, hYDROcodone-Acetaminophen, hYDROcodone-Acetaminophen, ibuprofen, klor-Con 10, klor-Con 10, lORazepam, lORazepam, magic mouthwash, neupogen, ondansetron, ondansetron, ondansetron HCl, perjeta, prochlorperazine Maleate, prochlorperazine Maleate, traMADol HCl. Allergies: No Known Allergies Current Complaints/Review of Systems: Constitutional - Complains of moderate fatigue. Denies lack of appetite, fever and night sweats. ENMT - Complains of dysphagia which just started. Integumentary - Has slight redness to the left chest wall. Breasts - No chest wall pain. Cardiovascular - Complains of edema in the left arm. Complains of occasional palpatiations. Denies chest pain. Respiratory - Denies cough, dyspnea and wheezing. Vital Signs: Performed on 02/12/2020 9:00 AM BMI - 43.333 kg/m2 (high), Height - 65.00 in, Weight - 260.4 lbs, Temperature - 97.7 f, Pulse - 80, Respiration - 18, O2 Sat - 100 %, Pain - 3 and BP - 140/ 84 mm(hg). Physical Exam: Bright erythema is appreciated on the left anterior chest wall. There is no evidence of dry or moist desquamation. Performance Status: 0 - Fully active, able to carry on all predisease activities without restrictions. (ECOG) Lab: None pending in Radiation Oncology. Test performed on 10/04/2019 9:30 AM Magnesium - 1.2 mg/dl (low), Test performed on 01/17/2020 11:20 AM RBC - 3.26 10 6/ul (low), HGB - 8.8 g/dl (low), HCT - 29.5 % (low), MCH - 27.0 pg (low), MCHC - 29.8 g/dl (low), BUN - 21 mg/dl (high), Creatinine - 1.0 mg/dl (high), eGFR - 57.6 ml/min (low), Osmolality - Calculated - 297 mosm/kg (high), Iron - 28 mcg/dl (low) and % Iron Saturation - 10.5 % (low). Imaging: Radiation therapy imaging related to accurate target localization (i.e. KV, MV and CBCT) was reviewed. Appropriate changes, if any, were made to ensure treatment accuracy. Plan: The patient is tolerating therapy reasonably well. Radiotherapy will continue as planned. A prescription for miracle mouthwash (50-50 solution of Maalox and 2% viscous lidocaine) was called in for the patient. CPT: 45325 Signed by: Dr. Joseph Cisneros 02/12/2020 9:19:17 AM
--- NOTE | 2020-02-21 09:09 | ONCRAD TMN_ITS ---
Radiation Oncology Weekly Treatment Management Patient: Samir Gerard MR#: [id number] : 1965 Attending Physician: Johann Asencio M.D. Date of Service: 02/21/2020 Referring Physician(s): Dr. Aram Montenegro Diagnosis: C50.812 - Malignant neoplasm of overlapping sites of left female breast, Diagnosed 04/30/2019 (Active) C50.912 - Malignant neoplasm of unspecified site of left female breast, Diagnosed 04/30/2019 (Active) Treatment Site: LT ChestWall and Regional Lymph Nodes Fraction #: Start Date: 01/28/2020 End Date: 02/21/2020 Elapsed Days: 24 Reason for visit: The patient is being seen today as part of their regularly scheduled weekly on treatment visits to assess for acute toxicities from radiotherapy. Review of Systems: The patient did not report any skin complaints. She did report odynophagia which has improved with Magic mouthwash. Vital Signs: Performed on 02/21/2020 8:53 AM BMI - 42.734 kg/m2 (high), Height - 65.00 in, Weight - 256.8 lbs, Temperature - 98.3 f, Pulse - 80, Respiration - 20, O2 Sat - 98 %, Pain - 0 and BP - 133/ 78 mm(hg). Physical Exam: There was no erythema of the left chest wall. Imaging: Radiation therapy imaging related to accurate target localization (i.e. KV, MV and CBCT) was reviewed. Appropriate changes, if any, were made to ensure treatment accuracy. Plan: Continue post-mastectomy radiotherapy as prescribed. Signed by: Dr. Johann Asencio 02/21/2020 9:08:35 AM
--- NOTE | 2020-02-25 09:01 | N.ONRAD NP_ITS ---
Radiation Oncology Weekly Treatment Management Patient: Samir Gerard MR#: [id number] : 1965> Attending Physician: Dr. Johann Asencio Date of Service: 02/25/2020 Referring Physician(s): Dr. Aram Montenegro Diagnosis: Breast cancer Treatment Site: Left chest wall and regional lymph nodes Dose: 42 Gy of a prescribed 50 Gy. A scar boost will be administered subsequent to completion of the left chest wall portal mcghee. Review of Systems: The patient did not report any skin complaints. She did report odynophagia which has improved with Magic mouthwash. Vital Signs: Weight -254 lbs. Temperature - 9893 F, BP -149/84 mm (hg). Pulse ??? 88 bpm, Respirations - 20 Physical Exam: Mild erythema of the left chest wall without desquamation. Imaging: Radiation therapy imaging related to accurate target localization (i.e. KV, MV and CBCT) was reviewed. Appropriate changes, if any, were made to ensure treatment accuracy. Plan: Continue post-mastectomy radiotherapy as planned. Signed by: Dr. Johann Asencio 02/25/2020 9:00:11 AM
--- NOTE | 2020-03-10 08:41 | ONCRAD TMN_ITS ---
Radiation Oncology Weekly Treatment Management Patient: Rajani Dawson MR#: [id number] : 1965 Attending Physician: Dr. Johann Asencio Date of Service: 03/10/2020 Referring Physician(s): Dr. Aram Montenegro Diagnosis: Breast cancer Treatment Site: Mastectomy scar Dose: 50 Gy of a prescribed 50 Gy. A scar boost will be administered subsequent to completion of the left chest wall portal mcghee. Review of Systems: The patient described redness and blistering of the skin of the chest wall. Vital Signs: Weight -247 lbs. Temperature ??? 98.8 F, BP -93/76 mm (hg). Pulse ??? 94 bpm, Respirations - 20 Physical Exam: Grade III radiation dermatitis of the left chest wall. Plan: Delay implementation of mastectomy scar boost for 1 week. Signed by: Dr. Johann Asencio 03/10/2020 8:40:45 AM
== END 2020-03-10 23:59 | disposition home or self-care (01) ==
LOC: ONCMED 05:19
PROVIDERS: PCP Nurse Practitioner Family; Visit Provider Radiology Radiation Oncology
DX: Z51.0 Encounter for antineoplastic radiation therapy (principal); C50.812 Malignant neoplasm of overlapping sites of left female breast; Z17.1 Estrogen receptor negative status [ER-]; C77.3 Secondary and unspecified malignant neoplasm of axilla and upper limb lymph nodes; Z45.2 Encounter for adjustment and management of vascular access device
CPT/HCPCS: 77300; 77321; 77331; 77334; 77336; 77385; 96523

== ENCOUNTER 2020-03-11 06:00 | Outpatient (RCR) | payer SELFPAY | END 2020-04-10 23:59 | disposition home or self-care (01) | LOC: SPT 06:00 | PROVIDERS: PCP Nurse Practitioner Family; Referring Provider Radiology Radiation Oncology; Visit Provider Radiology Radiation Oncology | DX: C50.912 Malignant neoplasm of unspecified site of left female breast (principal); Z90.12 Acquired absence of left breast and nipple | CPT/HCPCS: 97140 ==

== ENCOUNTER 2020-03-28 05:34 | Outpatient (RCR) | payer MEDICAID, SELFPAY ==
--- NOTE | 2020-03-17 08:25 | ONCRAD TMN_ITS ---
Radiation Oncology Weekly Treatment Management Patient: Samir Gerard MR#: [id number] : 1965 Attending Physician: Johann Asencio M.D. Date of Service: 03/17/2020 Referring Physician(s): Dr. Aram Montenegro Diagnosis: Breast cancer Treatment Site: Mastectomy scar Dose: 50 Gy of a prescribed 50 Gy. A scar boost will be administered subsequent to completion of the left chest wall portal mcghee. Review of Systems: The patient described redness and blistering of the skin of the chest wall. Physical Exam: Grade III radiation dermatitis of the left chest wall. Plan: Delay implementation of mastectomy scar boost for an additional week. Signed by: Dr. Johann Asencio 03/17/2020 8:23:00 AM
--- NOTE | 2020-03-28 08:39 | ONCRAD TMN_ITS ---
Radiation Oncology Weekly Treatment Management Patient: Samir Gerard MR#: [id number] : 1965 Attending Physician: Johann Asencio M.D. Date of Service: 03/28/2020 Referring Physician(s): Dr. Aram Montenegro Diagnosis: Breast cancer Treatment Site: Mastectomy scar Dose: 60 Gy of a prescribed 60 Gy. Review of Systems: The patient denied chills. She did not report any skin complaints. Vital Signs: Temperature ??? 100.8 F, BP - 125/79 mm (hg). Pulse - 100, Respirations - 24, Oxygen saturation 89% (room air) Physical Exam: Grade I radiation dermatitis of the left chest wall. Bilateral inferior rales ausculated. Plan: PMRT completed today. I will order a Covid -19 PCR test because of fever and O2 saturation. Return as scheduled. Signed by: Dr. Johann Asencio 03/28/2020 8:38:25 AM
[2020-03-29 18:34] LABS: Coronavirus Test Green County Not Detected
== END 2020-04-10 23:59 | disposition home or self-care (01) ==
LOC: ONCMED 05:34
PROVIDERS: Absent Provider Radiology Radiation Oncology; PCP Nurse Practitioner Family; Visit Provider Radiology Radiation Oncology
DX: Z51.0 Encounter for antineoplastic radiation therapy (principal); C50.812 Malignant neoplasm of overlapping sites of left female breast; Z17.1 Estrogen receptor negative status [ER-]; Z45.2 Encounter for adjustment and management of vascular access device
CPT/HCPCS: 77280; 77336; 77412; 77427; 80048; 83735; 83880; 87635; 96523

== ENCOUNTER 2020-04-11 06:00 | Outpatient (RCR) | payer SELFPAY | END 2020-04-30 16:04 | disposition home or self-care (01) | LOC: SPT 06:00 | PROVIDERS: PCP Nurse Practitioner Family; Referring Provider Radiology Radiation Oncology; Visit Provider Radiology Radiation Oncology | DX: C50.812 Malignant neoplasm of overlapping sites of left female breast (principal); C50.912 Malignant neoplasm of unspecified site of left female breast | CPT/HCPCS: 97140 ==

== ENCOUNTER → 2020-04-23 08:37 | Outpatient (BNVA) | payer MEDICAID, SELFPAY | PROVIDERS: PCP Nurse Practitioner Family; Visit Provider Internal Medicine Cardiovascular Disease | DX: I42.9 Cardiomyopathy, unspecified (principal); R06.00 Dyspnea, unspecified | CPT/HCPCS: 80053; 83735; 83880 ==

== ENCOUNTER 2020-04-25 08:26 | Outpatient (RCR) | payer MEDICAID, SELFPAY ==
--- NOTE | 2020-04-25 09:09 | ONCRAD EPV_ITS ---
Radiation Oncology Follow-Up Note Patient Name: Samir Gerard Date of : 1965 Date of Service: 04/25/2020 Attending Physician: Johann Asencio M.D. Samir Gerard returned to my office this morning for routinely scheduled follow-up appointment. She completed adjuvant left chest wall radiotherapy in March for the post-operative management of her pathological stage yIB (T1b No) inflammatory breast carcinoma. Neoadjuvant chemotherapy (Herceptin/epratuzumab/Taxotere) was administered 6 cycles by modified radical mastectomy with axillary lymph node dissection. Her initial clinical stage was IV ([id number]) [id number]. Radiotherapy was administered between the dates of January 27, 2019 through March 28, 2019. A prescribed dose of 58 Gy was delivered in 24 fractions over 61 elapsed days. On review of systems, she did not report any chest wall complaints. On physical examination the temperature is 98.6???F. Her blood pressure was 111/75 mmHg. The pulse was 61 bpm and the respiratory rate was 18 breaths per minute. The left chest wall demonstrated minimal hyperpigmentation without any areas of ulceration. In summary, the patient returned for a routine post radiotherapy follow-up. She will continue follow-up with her medical oncologist. Signed by: Dr. Johnan Asencio 04/25/2020 9:07:41 AM
== END 2020-05-11 23:59 | disposition home or self-care (01) ==
LOC: ONCMED 08:26
PROVIDERS: Absent Provider Radiology Radiation Oncology; PCP Nurse Practitioner Family; Visit Provider Internal Medicine Hematology & Oncology
DX: Z45.2 Encounter for adjustment and management of vascular access device (principal)
CPT/HCPCS: 96523

== ENCOUNTER 2020-05-15 05:51 | Outpatient (RCR) | payer MEDICAID, SELFPAY ==
--- NOTE | 2020-05-16 12:24 | ONC FU_ITS ---
Dr. Grijalva follow up note Patient: Samir Gerard Unit #: [id number]: 1965 Dicatated By: Annie Grijalva M.D.Date of Visit:May 15, 2020 Onc Med Follow-up/Prog Note History of Present Illness: Ms. Gerard is a 54-year-old female with history of left breast mass. She underwent biopsy about 20 years ago and it was negative, showed fibrous tissue only. Since then, she had no more follow-up mammograms until about 2 months ago when she went to emergency room with left breast 'inflammation'and progressive swelling and left axillary lymphadenopathy. A,t that time she was referred to oncology but did not follow through, but continue to follow with primary care. Eventually on 04/10/2019 she was referred to surgery. Dr. Montenegro evaluated her and she underwent left breast biopsy on 04/12/2019.v The biopsy reported invasive carcinoma, high-grade with dermal lymphatics involvement and perineural invasion. Identified also involvement of dermis e.g. 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 She presented with complaints of clear fluid oozing from the left breast skin and nipple as well as left axillary fullness. The left breast was swollen with overlying skin changes including under left axilla. Family history significant for mother with breast cancer and maternal aunt with breast cancer. She began menses patient at age 10 and has had no pregnancies. Ms Gerard has chronic discomfort/pain in her left upper back and left axilla. And whole left breast was swollen with overlying skin changes with off-and-on serosanguineous discharge from the nipple and skin. follow-up CT PET scan done on 05/05/2019 Showed 2 sites of FDG positive nodular dermal thickening in the left breast. Dominant lesion measures 2.2 x 3.4 cm with SUV of 14.7. And second lower inner quadrant lesion measured 1.4 cm with SUV of 9.7. Left axillary lymph nodes enlarged and FDG positive with index node measured 2.4 cm with SUV of 6.2. Additionally there are smaller but FDG positive lymph nodes. A left level IV cervical node measuring 1 cm has SUV of 4.8 indicating distant metastatic disease. Right axillary lymph node FDG positive, consistent with metastatic disease. discussed with Ms Gerard the CT PET scan findings, which showed metastatic disease to the bilateral axilla and level IVFDG positive left cervical lymph node. No other distant metastatic disease seen. Her echocardiogram shows ejection fraction 50-55%. Her recommended treatment was systemic therapy with pertuzumab/Herceptin/Taxotere every 3 weeks ???4-6 cycles and then evaluate with follow-up CT PET scan if it shows good response then consider surgical evaluation and radiation evaluation. Echocardiogram done on 05/09/2019 showed ejection fraction 50-55%. Ms Gerard began her first cycle of chemotherapy on 05/31/2019. Follow-up CT PET scan done after 3 cycles of systemic therapy on 07/21/2019 showed left breast dermal uptake is improved, now SUV is 5.7 compared to 14.7 previously. The index left axillary lymph node now measure 1.7 cm and is FDG negative. Right hilar lymph nodes are now subcentimeter in size and FDG negative. And left level IV cervical node is now subcentimeter in size and has minimal FDG uptake. Follow-up echo done on September 26, 2019 showed ejection fraction around 50%, discussed with Dr. Azevedo, no significant change when compared with echo done prior to the treatment. CT scan of chest was done on September 26, 2019 because of persistent left arm swelling with normal venous Doppler study and it showed left axilla did not show any mass or lymphadenopathy. There is a thickening of left breast fissure. Solitary gallstone. Case was discussed with radiologist today, there is no evidence of venous thrombosis but somewhat narrowing of vein in the left axilla. Patient underwent left total mastectomy with axillary lymph node dissection done on December 04, 2019 showed 0.8 mm focus of residual carcinoma with extensive sclerosis related to post neoadjuvant therapy and 5 left axillary lymph nodes were evaluated showed sclerosis but no evidence of metastatic disease. ypT1 pN0 Follow-up echocardiogram done on January 16, 2020 showed technically difficult study, mildly increased left ventricular cavity size, diffuse hypokinesia of left ventricle with ejection fraction 31% compared to study from September 26, 2019 there is a significant decline in LV ejection fraction. Because of technical difficulties ejection fraction estimation and wall motion evaluation is difficult so MUGA scan was recommended Which was done on January 22, 2020 showed left ventricle ejection fraction is estimated to be 42%. Left ventricular wall motion gnosis grossly revealed mild global hypokinesis Patient is being evaluated by Dr. Azevedo cardiology And because of significant drop in her ejection fraction adjuvant anti-HER-2/eduar therapy was not resumed until clearance from cardiology On the other hand ,patient had excellent response to neoadjuvant chemotherapy and she was referred to radiation oncology for evaluation for adjuvant radiation therapy to the left chest wall which was started on January 28, 2020 through March 28, 2020 Came for follow-up, denies any specific complaint except generalized weakness and fatigue. But no fever chills, no nausea or vomiting no diarrhea constipation no new bony pains but persistent left arm swelling due to lymphedema which is somewhat better but on her left hand. Patient states she feels completed adjuvant radiation therapy to left chest wall week before [place], tolerated it reasonably well. And patient is following with regarding her low ejection fraction, as per patient she is being treated with new medication, hopefully it will improve her cardiac ejection fraction and she is also scheduled for further testing to rule out ischemic heart disease. Medications: Furosemide 1 (20 mg) Tablet Oral daily PRN, Losartan Potassium 1 Tablet (of 25 mg) Oral daily, Metoprolol Succinate ER 1 Tablet (of 25 mg) Tablet SR 24 HR Oral b.i.d., Spironolactone 0.5 Tablet (of 25 mg/5mL) Suspension Oral daily Allergies: No Known Allergies. Review of Systems: Review of Systems is not available for this patient. Vital Signs: Performed on May 15, 2020 09:43 Height - 65.00 in Weight - 243.2 lbs (HIGH) BSA - 2.15 sq.m BMI - 40.47 (HIGH) Temperature - 98.8 F Pulse - 87 /min Respiration - 22 /min BP - 150/66 mm(hg) (HIGH) O2 Sat - 93 % (LOW) Pain - 0 Performance Status: 1 - No physically strenuous activity, but ambulatory and able to carry out light or sedentary work (e.g. office work, light house work). (ECOG) Physical Examination: Respiratory - Lungs are clear to auscultation, Cardiovascular - Regular rate and rhythm of heart, Gastrointestinal - Soft, bowel sounds present, Extremities - No visible edema lower extremity but lymphedema involving the left arm. Lab/Imaging: Test performed on Jan 17, 2020 11:20 Ferritin 26 ng/mL Iron 28 mcg/dL Sodium 142 mmol/L Vitamin B12 304 pg/mL Iron Binding Capacity (TIBC) 265 mcg/dl Potassium 3.6 mmol/L % Iron Saturation 10.5 % Chloride 106 mmol/L CO2 26 mmol/L UIBC 237 mcg/dL Anion Gap 13.6 BUN 21 mg/dL Creatinine 1.0 mg/dL Cr Clearance (Est) 113.4300 mL/min eGFR 57.6 mL/min Glucose 102 mg/dL Osmolality - Calculated 297 mOsm/kg Calcium 8.9 mg/dL Protein, Total 6.9 g/dL Albumin 3.7 g/dL Globulin 3.2 g/dL Bilirubin, Total 0.2 mg/dL ALT (SGPT) 11 U/L AST (SGOT) 16 U/L Alkaline Phosphatase 71 IU/L Retic Count % 1.4700 % WBC 9.1 10 3/uL RBC 3.26 10 6/uL HGB 8.8 g/dL HCT 29.5 % MCV 90.5 fL MCH 27.0 pg MCHC 29.8 g/dL RDW 14.7 % Platelet Count 387 10 3/cmm MPV 10.0 fL Neutrophils 6.08 10 3/uL Lymphocytes 2.1 10 3/uL Monocytes 0.8 10 3/uL Eosinophils 0.1 10 3/uL Basophils 0.0 10 3/uL Neutrophil % 66.9 % Lymphocyte % 23.2 % Monocyte % 8.2 % Eosinophil % 1.2 % Basophils % 0.3 % NRBC % 0 % Impression: metastatic left breast cancer, with a left FDG positive axillary lymphadenopathy,and FDG positive right axillary lymphadenopathy, and left cervical level IV FDG positive lymph node per CT PET scan done on 05/05/2019 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 She has had port placement r(right internal jugular). discussed with Ms Gerard the CT PET scan findings, which showed metastatic disease to the bilateral axilla and level IVFDG positive left cervical lymph node. No other distant metastatic disease seen. Her echocardiogram shows ejection fraction 50-55%. recommended treatment with systemic therapy with pertuzumab/Herceptin/Taxotere every 3 weeks ???4-6 cycles and then evaluate with follow-up CT PET scan if it shows good response then consider surgical evaluation and radiation evaluation. Ms Gerard began her first cycle of chemotherapy on 05/31/2019. She did not receive Neulasta. Cycle 1 has been complicated thus far with persistent diarrhea and intermittent vomiting. As of day 15 the diarrhea and vomiting has subsided. Her follow-up CT PET scan showed excellent response with resolution of right axillary lymphadenopathy and left cervical lymph node also showed significant improvement. Including primary in the left breast. .Carboplatin was added to cycle #5 and 6 Taxotere/Perjeta/Herceptin and she completed her neoadjuvant chemotherapy total 6 cycles on September 12, 2019, subsequently underwent left mastectomy with axillary lymph node dissection on December 04, 2019 which showed excellent response to neoadjuvant chemotherapy now left with 0.8 mm invasive residual carcinoma and 0 out of 5 lymph node shows metastatic disease ypT1,pN0 Patient was referred to radiation oncology for adjuvant radiation therapy which she completed on March 28, 2020. In January 2020 her follow-up echocardiogram shows significant drop in her ejection fraction, down to 31% which was confirmed with MUGA scan done on January 22, 2020 which showed ejection fraction estimated around 42%, patient was referred to cardiology for evaluation and management. Adjuvant therapy with anti-HER-2/eduar therapy was not resumed until cardiac clearance Plan: Discussed with patient regarding her concerns and questions, patient was supposed to start adjuvant anti-HER-2/eduar therapy with Herceptin/Perjeta for HER-2/eduar positive disease but because of significant drop in her ejection fraction on follow-up echocardiogram done in January 2020 it was not considered, since then is being managed medically and now further work-up to assess ischemic heart disease is under consideration. Case was discussed with Dr. azevedo, chemistry lab instructor today her impression was either it is ischemic heart disease or could be chemo/HER-2/eduar therapy induced cardiomyopathy. At this point we will consider follow-up CT PET scan to assess disease status and also refer her to [facility] for evaluation regarding clinical trial available or recommendation regarding adjuvant anti-HER-2/eduar therapy if ischemic heart disease is ruled out. Patient return to clinic after CT PET scan with CBC CMP Signed By: Annie Grijalva M.D. <<Signature on File>>
== END 2020-06-02 07:00 | disposition home or self-care (01) ==
LOC: ONCMED 05:51
PROVIDERS: Absent Provider Radiology Radiation Oncology; PCP Nurse Practitioner Family; Visit Provider Internal Medicine Hematology & Oncology
DX: C50.812 Malignant neoplasm of overlapping sites of left female breast (principal); Z17.1 Estrogen receptor negative status [ER-]; R93.1 Abnormal findings on diagnostic imaging of heart and coronary circulation; Z90.12 Acquired absence of left breast and nipple; Z92.21 Personal history of antineoplastic chemotherapy; Z92.3 Personal history of irradiation
CPT/HCPCS: 99214

== ENCOUNTER 2020-06-02 07:17 | Outpatient (CLI) | payer MEDICAID, SELFPAY ==
--- NOTE | 2020-06-02 07:21 | ECG_ITS ---
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 Interpretive Statements NAME OF STUDY: LEXISCAN SESTAMIBI STRESS TEST INDICATION: Dyspnea; Chest Pain, PROCEDURE: At the baseline, the blood pressure was 122/90 mmHg with a heart rate of 62 bpm. The electrocardiogram showed normal sinus rhythm, normal axis with T wave inversion noted in anterior leads. The Lexiscan was infused over a period of 20 seconds. A total of 0.4 milligrams of Lexiscan was infused. The stress phase was continued for a total of 5 minutes. Heart rate at the end of the stress phase was 77 bpm with a blood pressure of 132/75 mmHg. The EKG at the peak infusion revealed sinus rhythm with no significant ST-T wave changes. The study was terminated due to protocol completion. Sestamibi was injected 20 seconds after the Lexiscan infusion. Blood pressure at the end of the recovery phase was 131/78 mmHg with a heart rate of 77 beats per minute. CONCLUSION: 1. No significant EKG changes with the LexiScan infusion. 2. No LexiScan induced chest pain or cardiac arrhythmia. 3. Normal blood pressure and heart rate response. 4. Sestamibi/sestamibi perfusion scan pending; see separate report. Electronically Signed On 06-04-2020 9:55:55 [employer] by Brook Serrato M.D. [id number]
--- NOTE | 2020-06-02 07:21 | NMCV_ITS ---
NM floyd perf SPECT r/s* [id number] Samir Gerard Age: 54 Gender: F : 1965 Exam Date: 06/02/2020 08:37 Ordering Phys: Brook Serrato MD ([email or web address]) Technologist: HEAVEN Sylvester Exam Location: [facility] Indications: DYSPNEA, cardiomyopathy STRESS TEST [facility] IMAGE PROTOCOL Rest/Stress 1 Lexiscan Day Radiopharmaceutical Dose (mCi) Administration Site Administered by Rest: Tc-99m 10.8 IV HEAVEN Chavez Sestamibi Stress:Tc-99m 33.0 IV HEAVEN Chavez Sestamibi Rest: 02-Jun-2020 60 Discovery 630 Stress: 02-Jun-2020 30 Discovery 630 0.4mg Lexiscan. Images obtained in supine and prone position. SPECT RESULTS Technical Quality: Excellent Raw Data Analysis: Normal Image Corrections: No attenuation or motion correction applied Summed Stress Score: 11 Summed Rest Score: 8 Summed Difference Score: 4 PERFUSION FINDINGS Medium size perfusion abnormality of mild severity of basal to apical inferior, basal to mid anterolateral dupont on rest images with reversibility noted in basal to mid anterolateral, apical lateral and apical inferior dupont on stress images. FUNCTIONAL RESULTS (calculated via Gated SPECT) Stress Image LV EF (%): 48 Stress EDV (mL):151 TID: 0.99 Stress ESV (mL):79 FUNCTIONAL FINDINGS: The left ventricle is normal in size. Transient Ischemia Dilatation of 0.99. There is mildly reduced left ventricular systolic function. The left ventricular ejection fraction is mildly reduced with a value of 48%. There is possible mild hypokinesis of inferior wall. IMPRESSIONS 1. Small sized predominantly fixed perfusion abnormality of basal to apical inferior dupont. This may represent old myocardial infarction right coronary artery territory or attenuation artifact. 2. Moderate sized perfusion abnormality of basal to mid anterolateral dupont with reversibility noted in basal to mid anterolateral, apical lateral dupont. This may represent old myocardial infarction in circumflex artery territory with small yulia-infarct ischemia. 3. The left ventricular ejection fraction is mildly reduced with a value of 48%. 4. There is possible mild hypokinesis of inferior wall. 5. No prior similar studies to compare. Brook Serrato MD (Electronically Signed) Final Date: 03 June 2020 17:31 S
[2020-06-02 07:33] VITALS: BMI 39.9
[2020-06-02] MEDS: regadenoson 0.4 Mg/5 ml Syringe IVP (09:07)
[2020-06-02 09:16] VITALS: BP 131/78; PULSE 75
== END 2020-06-02 07:18 | disposition home or self-care (01) ==
LOC: CDL 07:18
PROVIDERS: PCP Nurse Practitioner Family; Visit Provider Internal Medicine Cardiovascular Disease
DX: R07.9 Chest pain, unspecified (principal)
CPT/HCPCS: 78452; 93017; A9500; J2785

== ENCOUNTER 2020-06-03 05:56 | Outpatient (CLI) | payer MEDICAID, SELFPAY | END 2020-06-03 05:57 | disposition home or self-care (01) | LOC: ONCMED 05:57 | PROVIDERS: Absent Provider Radiology Radiation Oncology; PCP Nurse Practitioner Family; Visit Provider Internal Medicine Hematology & Oncology | DX: Z45.2 Encounter for adjustment and management of vascular access device (principal) | CPT/HCPCS: 96523 ==

== ENCOUNTER 2020-06-11 05:45 | Outpatient (CLI) | payer MEDICAID, SELFPAY ==
[2020-06-11 14:23] LABS: Basophils # 0.1 10^3/uL (0.0-0.1); Basophils % 0.4 %; Eosinophils # 0.1 10^3/uL (0.0-0.8); Eosinophils % 1.1 %; Hematocrit 35.7 % (37.0-47.0); Lymphocytes # 1.8 10^3/uL (0.8-4.8); Lymphocytes % 15.6 %; Mean Corpuscular HGB Conc 30.8 g/dL (30.0-36.0); Mean Corpuscular Hemoglobin 27.6 pg (28.0-34.0); Mean Corpuscular Volume 89.5 fL (81-99); Mean Platelet Volume 10.1 fL (7.4-10.4); Monocytes # 1.1 10^3/uL (0.2-0.9); Neutrophils # 8.24 10^3/uL (1.8-7.7); Neutrophils % 72.5 %; Nucleated Red Blood Cells % 0 %; Platelet Count 392 10^3/cmm (130-400); Red Blood Count 3.99 10^6/uL (4.1-5.3); Red Cell Distribution Width 17.2 % (12.1-15.1); White Blood Count 11.4 10^3/uL (4.0-10.0)
[2020-06-11 14:44] LABS: Alanine Aminotransferase 12 U/L (0-33); Alkaline Phosphatase 74 IU/L (35-105); Anion Gap 15.2 (5-19); Aspartate Amino Transferase 18 U/L (0-32); Blood Urea Nitrogen 18 mg/dL (6-20); Carbon Dioxide 26 mmol/L (22-29); Chloride 105 mmol/L (98-107); Globulin 3.3 g/dL (1.3-4.6); Glomerular Filtration Rate 46.6 mL/min (90-130); Glucose 94 mg/dL (65-115); Osmolality Calculated 296 mOsm/kg (285-295); Potassium 4.2 mmol/L (3.5-5.1); Sodium 142 mmol/L (136-145); Total Bilirubin 0.2 mg/dL (0.15-1.2); Total Protein 7.3 g/dL (6.6-8.7)
--- NOTE | 2020-06-11 16:44 | ONC FU_ITS ---
Dr. Grijalva follow up note Patient: Samir Gerard Unit #: [id number]: 1965 Dicatated By: Annie Grijalva M.D.Date of Visit:Jun 11, 2020 Onc Med Follow-up/Prog Note History of Present Illness: Ms. Gerard is a 54-year-old female with history of left breast mass. She underwent biopsy about 20 years ago and it was negative, showed fibrous tissue only. Since then, she had no more follow-up mammograms until about 2 months ago when she went to emergency room with left breast 'inflammation'and progressive swelling and left axillary lymphadenopathy. A,t that time she was referred to oncology but did not follow through, but continue to follow with primary care. Eventually on 04/10/2019 she was referred to surgery. Dr. Montenegro evaluated her and she underwent left breast biopsy on 04/12/2019.v The biopsy reported invasive carcinoma, high-grade with dermal lymphatics involvement and perineural invasion. Identified also involvement of dermis e.g. 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 She presented with complaints of clear fluid oozing from the left breast skin and nipple as well as left axillary fullness. The left breast was swollen with overlying skin changes including under left axilla. Family history significant for mother with breast cancer and maternal aunt with breast cancer. She began menses patient at age 10 and has had no pregnancies. Ms Gerard has chronic discomfort/pain in her left upper back and left axilla. And whole left breast was swollen with overlying skin changes with off-and-on serosanguineous discharge from the nipple and skin. follow-up CT PET scan done on 05/05/2019 Showed 2 sites of FDG positive nodular dermal thickening in the left breast. Dominant lesion measures 2.2 x 3.4 cm with SUV of 14.7. And second lower inner quadrant lesion measured 1.4 cm with SUV of 9.7. Left axillary lymph nodes enlarged and FDG positive with index node measured 2.4 cm with SUV of 6.2. Additionally there are smaller but FDG positive lymph nodes. A left level IV cervical node measuring 1 cm has SUV of 4.8 indicating distant metastatic disease. Right axillary lymph node FDG positive, consistent with metastatic disease. discussed with Ms Gerard the CT PET scan findings, which showed metastatic disease to the bilateral axilla and level IVFDG positive left cervical lymph node. No other distant metastatic disease seen. Her echocardiogram shows ejection fraction 50-55%. Her recommended treatment was systemic therapy with pertuzumab/Herceptin/Taxotere every 3 weeks ???4-6 cycles and then evaluate with follow-up CT PET scan if it shows good response then consider surgical evaluation and radiation evaluation. Echocardiogram done on 05/09/2019 showed ejection fraction 50-55%. Ms Gerard began her first cycle of chemotherapy on 05/31/2019. Follow-up CT PET scan done after 3 cycles of systemic therapy on 07/21/2019 showed left breast dermal uptake is improved, now SUV is 5.7 compared to 14.7 previously. The index left axillary lymph node now measure 1.7 cm and is FDG negative. Right hilar lymph nodes are now subcentimeter in size and FDG negative. And left level IV cervical node is now subcentimeter in size and has minimal FDG uptake. Follow-up echo done on September 26, 2019 showed ejection fraction around 50%, discussed with Dr. Serrato, no significant change when compared with echo done prior to the treatment. CT scan of chest was done on September 26, 2019 because of persistent left arm swelling with normal venous Doppler study and it showed left axilla did not show any mass or lymphadenopathy. There is a thickening of left breast fissure. Solitary gallstone. Case was discussed with radiologist today, there is no evidence of venous thrombosis but somewhat narrowing of vein in the left axilla. Patient underwent left total mastectomy with axillary lymph node dissection done on December 04, 2019 showed 0.8 mm focus of residual carcinoma with extensive sclerosis related to post neoadjuvant therapy and 5 left axillary lymph nodes were evaluated showed sclerosis but no evidence of metastatic disease. ypT1 pN0 Follow-up echocardiogram done on January 16, 2020 showed technically difficult study, mildly increased left ventricular cavity size, diffuse hypokinesia of left ventricle with ejection fraction 31% compared to study from September 26, 2019 there is a significant decline in LV ejection fraction. Because of technical difficulties ejection fraction estimation and wall motion evaluation is difficult so MUGA scan was recommended Which was done on January 22, 2020 showed left ventricle ejection fraction is estimated to be 42%. Left ventricular wall motion gnosis grossly revealed mild global hypokinesis Patient is being evaluated by Dr. Rojelio andersen And because of significant drop in her ejection fraction adjuvant anti-HER-2/eduar therapy was not resumed until clearance from cardiology On the other hand ,patient had excellent response to neoadjuvant chemotherapy and she was referred to radiation oncology for evaluation for adjuvant radiation therapy to the left chest wall which was started on January 28, 2020 through March 28, 2020Follow-up CT PET scan done on May 17, 2020 showed negative for recurrent malignancy. Postsurgical changes from left mastectomy and axillary lymph node dissection mild chronic inflammatory activity along the left chest wall from radiation therapy. Right breast and axilla unremarkable. Suspicious left cervical level 4 lymph node seen previously is no longer identifiable. Came for follow-up, denies any specific complaint except rash around her right nipple about 10 cm in size no oozing, no nipple discharge, no pain but itching, patient denies using any lotion or cream, patient denies any insect bite, patient denies any trauma to her right breast. Patient states she underwent cardiac evaluation for low ejection fraction and awaiting follow-up with cardiology. Also received call from [place] [facility], patient is planning to go there after cardiac work-up is completed.Otherwise no fever chills, no nausea or vomiting no diarrhea constipation no new bony pains Medications: Furosemide 1 (20 mg) Tablet Oral daily PRN, Losartan Potassium 1 Tablet (of 25 mg) Oral daily, Metoprolol Succinate ER 1 Tablet (of 25 mg) Tablet SR 24 HR Oral b.i.d., Spironolactone 0.5 Tablet (of 25 mg/5mL) Suspension Oral daily Allergies: No Known Allergies. Review of Systems: Review of Systems is not available for this patient. Vital Signs: Performed on Jun 11, 2020 15:36 Height - 65.00 in Weight - 247 lbs (HIGH) BSA - 2.16 sq.m BMI - 41.10 (HIGH) Temperature - 98.7 F Pulse - 78 /min Respiration - 18 /min BP - 121/75 mm(hg) O2 Sat - 98 % Pain - 0 Fatigue - 2 Performance Status: 1 - No physically strenuous activity, but ambulatory and able to carry out light or sedentary work (e.g. office work, light house work). (ECOG) Physical Examination: Respiratory - Lungs are clear to auscultation, Cardiovascular - Regular rate and rhythm of heart, Breasts - Status post left mastectomy, right breast shows about rash involving 10 cm area around right nipple, no oozing no pustules no nipple discharge seen but scratch mohan, Gastrointestinal - Soft, bowel sounds present, Extremities - No visible edema except left upper arm lymphedema. Lab/Imaging: Test performed on Jan 17, 2020 11:20 Ferritin 26 ng/mL Iron 28 mcg/dL Sodium 142 mmol/L Vitamin B12 304 pg/mL Iron Binding Capacity (TIBC) 265 mcg/dl Potassium 3.6 mmol/L % Iron Saturation 10.5 % Chloride 106 mmol/L CO2 26 mmol/L UIBC 237 mcg/dL Anion Gap 13.6 BUN 21 mg/dL Creatinine 1.0 mg/dL Cr Clearance (Est) 113.4300 mL/min eGFR 57.6 mL/min Glucose 102 mg/dL Osmolality - Calculated 297 mOsm/kg Calcium 8.9 mg/dL Protein, Total 6.9 g/dL Albumin 3.7 g/dL Globulin 3.2 g/dL Bilirubin, Total 0.2 mg/dL ALT (SGPT) 11 U/L AST (SGOT) 16 U/L Alkaline Phosphatase 71 IU/L Retic Count % 1.4700 % WBC 9.1 10 3/uL RBC 3.26 10 6/uL HGB 8.8 g/dL HCT 29.5 % MCV 90.5 fL MCH 27.0 pg MCHC 29.8 g/dL RDW 14.7 % Platelet Count 387 10 3/cmm MPV 10.0 fL Neutrophils 6.08 10 3/uL Lymphocytes 2.1 10 3/uL Monocytes 0.8 10 3/uL Eosinophils 0.1 10 3/uL Basophils 0.0 10 3/uL Neutrophil % 66.9 % Lymphocyte % 23.2 % Monocyte % 8.2 % Eosinophil % 1.2 % Basophils % 0.3 % NRBC % 0 % Impression: metastatic left breast cancer, with a left FDG positive axillary lymphadenopathy,and FDG positive right axillary lymphadenopathy, and left cervical level IV FDG positive lymph node per CT PET scan done on 05/05/2019 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 She has had port placement r(right internal jugular). discussed with Ms Gerard the CT PET scan findings, which showed metastatic disease to the bilateral axilla and level IVFDG positive left cervical lymph node. No other distant metastatic disease seen. Her echocardiogram shows ejection fraction 50-55%. recommended treatment with systemic therapy with pertuzumab/Herceptin/Taxotere every 3 weeks ???4-6 cycles and then evaluate with follow-up CT PET scan if it shows good response then consider surgical evaluation and radiation evaluation. Ms Gerard began her first cycle of chemotherapy on 05/31/2019. She did not receive Neulasta. Cycle 1 has been complicated thus far with persistent diarrhea and intermittent vomiting. As of day 15 the diarrhea and vomiting has subsided. Her follow-up CT PET scan showed excellent response with resolution of right axillary lymphadenopathy and left cervical lymph node also showed significant improvement. Including primary in the left breast. .Carboplatin was added to cycle #5 and 6 Taxotere/Perjeta/Herceptin and she completed her neoadjuvant chemotherapy total 6 cycles on September 12, 2019, subsequently underwent left mastectomy with axillary lymph node dissection on December 04, 2019 which showed excellent response to neoadjuvant chemotherapy now left with 0.8 mm invasive residual carcinoma and 0 out of 5 lymph node shows metastatic disease ypT1,pN0 Patient was referred to radiation oncology for adjuvant radiation therapy which she completed on March 28, 2020. In January 2020 her follow-up echocardiogram shows significant drop in her ejection fraction, down to 31% which was confirmed with MUGA scan done on January 22, 2020 which showed ejection fraction estimated around 42%, patient was referred to cardiology for evaluation and management. Adjuvant therapy with anti-HER-2/eduar therapy was not resumed until cardiac clearanceAnd now undergoing cardiac work-up. Follow-up CT PET scan done on May 17, 2020 showed no evidence of disease, postsurgical changes left chest, patient is status post left mastectomy, resolution of suspicious left cervical lymph node. Plan: Patient regarding her labs white blood count 11.4 hemoglobin 11 hematocrit 35.7 platelets 392,000 CMP within normal limits and follow-up CT PET scan shows no evidence of disease Clinically, patient is doing well with no signs symptom suggestive of recurrence of disease her follow-up CT PET scan shows no evidence of disease either., Patient has ER/MA HER-2/eduar positive disease and had an excellent response to neoadjuvant chemotherapy and And adjuvant therapy with Herceptin/Perjeta was not started until cardiac clearance and patient is still undergoing evaluation and management and we are awaiting cardiac clearance to restart adjuvant Herceptin therapy. Patient was referred to [place] [facility] for evaluation for clinical trial or anti-HER-2/eduar therapy with low ejection fraction. We will continue to hold her adjuvant Herceptin until cardiac clearance or evaluation at breast cancer clinic at [place], no patient has concern for right breast skin rash, we will try [id number] hydrocortisone and aloe vera if no improvement, will refer her to dermatology for evaluation Return to clinic in 2 weeks for evaluation regarding her right breast skin rash. Signed By: Annie Grijalva M.D. <<Signature on File>>
== END 2020-06-11 05:46 | disposition home or self-care (01) ==
LOC: ONCMED 05:46
PROVIDERS: PCP Nurse Practitioner Family; Visit Provider Internal Medicine Hematology & Oncology
DX: C50.812 Malignant neoplasm of overlapping sites of left female breast (principal); C77.3 Secondary and unspecified malignant neoplasm of axilla and upper limb lymph nodes; Z17.0 Estrogen receptor positive status [ER+]; R21 Rash and other nonspecific skin eruption; Z90.12 Acquired absence of left breast and nipple
CPT/HCPCS: 36591; 80053; 85025; 99214

== ENCOUNTER 2020-06-25 05:46 | Outpatient (CLI) | payer MEDICAID, SELFPAY ==
--- NOTE | 2020-06-25 16:22 | ONC FU_ITS ---
Dr. Grijalva follow up note Patient: Samir Gerard Unit #: [id number]: 1965 Dicatated By: Annie Grijalva M.D.Date of Visit:Jun 25, 2020 Onc Med Follow-up/Prog Note History of Present Illness: Ms. Gerard is a 54-year-old female with history of left breast mass. She underwent biopsy about 20 years ago and it was negative, showed fibrous tissue only. Since then, she had no more follow-up mammograms until about 2 months ago when she went to emergency room with left breast 'inflammation'and progressive swelling and left axillary lymphadenopathy. A,t that time she was referred to oncology but did not follow through, but continue to follow with primary care. Eventually on 04/10/2019 she was referred to surgery. Dr. Montenegro evaluated her and she underwent left breast biopsy on 04/12/2019.v The biopsy reported invasive carcinoma, high-grade with dermal lymphatics involvement and perineural invasion. Identified also involvement of dermis e.g. 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 She presented with complaints of clear fluid oozing from the left breast skin and nipple as well as left axillary fullness. The left breast was swollen with overlying skin changes including under left axilla. Family history significant for mother with breast cancer and maternal aunt with breast cancer. She began menses patient at age 10 and has had no pregnancies. Ms Gerard has chronic discomfort/pain in her left upper back and left axilla. And whole left breast was swollen with overlying skin changes with off-and-on serosanguineous discharge from the nipple and skin. follow-up CT PET scan done on 05/05/2019 Showed 2 sites of FDG positive nodular dermal thickening in the left breast. Dominant lesion measures 2.2 x 3.4 cm with SUV of 14.7. And second lower inner quadrant lesion measured 1.4 cm with SUV of 9.7. Left axillary lymph nodes enlarged and FDG positive with index node measured 2.4 cm with SUV of 6.2. Additionally there are smaller but FDG positive lymph nodes. A left level IV cervical node measuring 1 cm has SUV of 4.8 indicating distant metastatic disease. Right axillary lymph node FDG positive, consistent with metastatic disease. discussed with Ms Gerard the CT PET scan findings, which showed metastatic disease to the bilateral axilla and level IVFDG positive left cervical lymph node. No other distant metastatic disease seen. Her echocardiogram shows ejection fraction 50-55%. Her recommended treatment was systemic therapy with pertuzumab/Herceptin/Taxotere every 3 weeks ???4-6 cycles and then evaluate with follow-up CT PET scan if it shows good response then consider surgical evaluation and radiation evaluation. Echocardiogram done on 05/09/2019 showed ejection fraction 50-55%. Ms Gerard began her first cycle of chemotherapy on 05/31/2019. Follow-up CT PET scan done after 3 cycles of systemic therapy on 07/21/2019 showed left breast dermal uptake is improved, now SUV is 5.7 compared to 14.7 previously. The index left axillary lymph node now measure 1.7 cm and is FDG negative. Right hilar lymph nodes are now subcentimeter in size and FDG negative. And left level IV cervical node is now subcentimeter in size and has minimal FDG uptake. Follow-up echo done on September 26, 2019 showed ejection fraction around 50%, discussed with Dr. Serrato, no significant change when compared with echo done prior to the treatment. CT scan of chest was done on September 26, 2019 because of persistent left arm swelling with normal venous Doppler study and it showed left axilla did not show any mass or lymphadenopathy. There is a thickening of left breast fissure. Solitary gallstone. Case was discussed with radiologist today, there is no evidence of venous thrombosis but somewhat narrowing of vein in the left axilla. Patient underwent left total mastectomy with axillary lymph node dissection done on December 04, 2019 showed 0.8 mm focus of residual carcinoma with extensive sclerosis related to post neoadjuvant therapy and 5 left axillary lymph nodes were evaluated showed sclerosis but no evidence of metastatic disease. ypT1 pN0 Follow-up echocardiogram done on January 16, 2020 showed technically difficult study, mildly increased left ventricular cavity size, diffuse hypokinesia of left ventricle with ejection fraction 31% compared to study from September 26, 2019 there is a significant decline in LV ejection fraction. Because of technical difficulties ejection fraction estimation and wall motion evaluation is difficult so MUGA scan was recommended Which was done on January 22, 2020 showed left ventricle ejection fraction is estimated to be 42%. Left ventricular wall motion gnosis grossly revealed mild global hypokinesis Patient is being evaluated by Dr. Serrato cardiology And because of significant drop in her ejection fraction adjuvant anti-HER-2/eduar therapy was not resumed until clearance from cardiology On the other hand ,patient had excellent response to neoadjuvant chemotherapy and she was referred to radiation oncology for evaluation for adjuvant radiation therapy to the left chest wall which was started on January 28, 2020 through March 28, 2020Follow-up CT PET scan done on May 17, 2020 showed negative for recurrent malignancy. Postsurgical changes from left mastectomy and axillary lymph node dissection mild chronic inflammatory activity along the left chest wall from radiation therapy. Right breast and axilla unremarkable. Suspicious left cervical level 4 lymph node seen previously is no longer identifiable. Came for follow-up, denies any specific complaint except rash around her right nipple about 10 cm in size no oozing, no nipple discharge, no pain but itching,, As per patient she tried [id number] hydrocortisone but without any help still itching and no improvement. No nipple discharge. Patient said she received call from [place] [facility] and no awaiting schedule for evaluation. Also scheduled for cardiac cath on July 10, 2019 Medications: Furosemide 1 (20 mg) Tablet Oral daily PRN, Losartan Potassium 1 Tablet (of 25 mg) Oral daily, Metoprolol Succinate ER 1 Tablet (of 25 mg) Tablet SR 24 HR Oral b.i.d., Spironolactone 0.5 Tablet (of 25 mg/5mL) Suspension Oral daily Allergies: No Known Allergies. Review of Systems: Review of Systems is not available for this patient. Vital Signs: Performed on Jun 25, 2020 10:53 Height - 65.00 in Weight - 247.4 lbs (HIGH) BSA - 2.17 sq.m BMI - 41.17 (HIGH) Temperature - 98.0 F (LOW) Pulse - 70 /min Respiration - 18 /min BP - 118/65 mm(hg) O2 Sat - 94 % (LOW) Pain - 2 Performance Status: 1 - No physically strenuous activity, but ambulatory and able to carry out light or sedentary work (e.g. office work, light house work). (ECOG) Physical Examination: Respiratory - Lungs are clear to auscultation, Cardiovascular - Regular rate and rhythm of heart, Breasts - Maculopapular rash around involving her right breast around the nipple no oozing or superimposed infection seen, no nipple discharge, Gastrointestinal - Soft, bowel sounds present, Extremities - Persistent left upper extremity lymphedema otherwise no lower extremity edema or rash. Lab/Imaging: Test performed on Jan 17, 2020 11:20 Ferritin 26 ng/mL Iron 28 mcg/dL Sodium 142 mmol/L Vitamin B12 304 pg/mL Iron Binding Capacity (TIBC) 265 mcg/dl Potassium 3.6 mmol/L % Iron Saturation 10.5 % Chloride 106 mmol/L CO2 26 mmol/L UIBC 237 mcg/dL Anion Gap 13.6 BUN 21 mg/dL Creatinine 1.0 mg/dL Cr Clearance (Est) 113.4300 mL/min eGFR 57.6 mL/min Glucose 102 mg/dL Osmolality - Calculated 297 mOsm/kg Calcium 8.9 mg/dL Protein, Total 6.9 g/dL Albumin 3.7 g/dL Globulin 3.2 g/dL Bilirubin, Total 0.2 mg/dL ALT (SGPT) 11 U/L AST (SGOT) 16 U/L Alkaline Phosphatase 71 IU/L Retic Count % 1.4700 % WBC 9.1 10 3/uL RBC 3.26 10 6/uL HGB 8.8 g/dL HCT 29.5 % MCV 90.5 fL MCH 27.0 pg MCHC 29.8 g/dL RDW 14.7 % Platelet Count 387 10 3/cmm MPV 10.0 fL Neutrophils 6.08 10 3/uL Lymphocytes 2.1 10 3/uL Monocytes 0.8 10 3/uL Eosinophils 0.1 10 3/uL Basophils 0.0 10 3/uL Neutrophil % 66.9 % Lymphocyte % 23.2 % Monocyte % 8.2 % Eosinophil % 1.2 % Basophils % 0.3 % NRBC % 0 % Impression: metastatic left breast cancer, with a left FDG positive axillary lymphadenopathy,and FDG positive right axillary lymphadenopathy, and left cervical level IV FDG positive lymph node per CT PET scan done on 05/05/2019 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 She has had port placement r(right internal jugular). discussed with Ms Gerard the CT PET scan findings, which showed metastatic disease to the bilateral axilla and level IVFDG positive left cervical lymph node. No other distant metastatic disease seen. Her echocardiogram shows ejection fraction 50-55%. recommended treatment with systemic therapy with pertuzumab/Herceptin/Taxotere every 3 weeks ???4-6 cycles and then evaluate with follow-up CT PET scan if it shows good response then consider surgical evaluation and radiation evaluation. Ms Gerard began her first cycle of chemotherapy on 05/31/2019. She did not receive Neulasta. Cycle 1 has been complicated thus far with persistent diarrhea and intermittent vomiting. As of day 15 the diarrhea and vomiting has subsided. Her follow-up CT PET scan showed excellent response with resolution of right axillary lymphadenopathy and left cervical lymph node also showed significant improvement. Including primary in the left breast. .Carboplatin was added to cycle #5 and 6 Taxotere/Perjeta/Herceptin and she completed her neoadjuvant chemotherapy total 6 cycles on September 12, 2019, subsequently underwent left mastectomy with axillary lymph node dissection on December 04, 2019 which showed excellent response to neoadjuvant chemotherapy now left with 0.8 mm invasive residual carcinoma and 0 out of 5 lymph node shows metastatic disease ypT1,pN0 Patient was referred to radiation oncology for adjuvant radiation therapy which she completed on March 28, 2020. In January 2020 her follow-up echocardiogram shows significant drop in her ejection fraction, down to 31% which was confirmed with MUGA scan done on January 22, 2020 which showed ejection fraction estimated around 42%, patient was referred to cardiology for evaluation and management. Adjuvant therapy with anti-HER-2/eduar therapy was not resumed until cardiac clearanceAnd now undergoing cardiac work-up. Follow-up CT PET scan done on May 17, 2020 showed no evidence of disease, postsurgical changes left chest, patient is status post left mastectomy, resolution of suspicious left cervical lymph node. Plan: Discussed with patient regarding her skin rash involving right breast around her nipple, patient tried hydrocortisone but without any improvement in itching or rash itself. At this point we will refer her to dermatology for evaluation Patient is undergoing cardiac evaluation regarding low ejection fraction, adjuvant therapy with anti HER-2/eduar therapy is on hold until clearance from cardiology, patient is also awaiting evaluation at [place] regarding clinical trial or recommendations in patient with HER-2/eduar positive disease with low ejection fraction Patient return to clinic in 3 weeks for further evaluation, hopefully by that time cardiac work-up will be completed and she will be evaluated at [place]. Signed By: Annie Grijalva M.D. <<Signature on File>>
== END 2020-06-25 05:47 | disposition home or self-care (01) ==
LOC: ONCMED 05:47
PROVIDERS: PCP Nurse Practitioner Family; Visit Provider Internal Medicine Hematology & Oncology
DX: C50.812 Malignant neoplasm of overlapping sites of left female breast (principal); Z17.0 Estrogen receptor positive status [ER+]; C77.8 Secondary and unspecified malignant neoplasm of lymph nodes of multiple regions; R21 Rash and other nonspecific skin eruption; Z90.12 Acquired absence of left breast and nipple; Z92.21 Personal history of antineoplastic chemotherapy; Z79.899 Other long term (current) drug therapy
CPT/HCPCS: 99214

== ENCOUNTER 2020-07-07 06:00 | Outpatient (CLI) | payer SELFPAY ==
[2020-07-07 09:01] LABS: Basophils % 0.4 %; Eosinophils # 0.1 10^3/uL (0.0-0.8); Hematocrit 36.3 % (37.0-47.0); Hemoglobin 11.2 g/dL (11.5-15.3); Lymphocytes # 1.3 10^3/uL (0.8-4.8); Lymphocytes % 13.8 %; Mean Corpuscular HGB Conc 30.9 g/dL (30.0-36.0); Mean Corpuscular Hemoglobin 27.6 pg (28.0-34.0); Mean Corpuscular Volume 89.4 fL (81-99); Mean Platelet Volume 9.2 fL (7.4-10.4); Monocytes # 0.9 10^3/uL (0.2-0.9); Monocytes % 9.4 %; Neutrophils % 75.1 %; Nucleated Red Blood Cells % 0 %; Platelet Count 366 10^3/cmm (130-400); Red Blood Count 4.06 10^6/uL (4.1-5.3); Red Cell Distribution Width 16.3 % (12.1-15.1); White Blood Count 9.5 10^3/uL (4.0-10.0)
[2020-07-07 09:17] LABS: INR 0.98 (0.83-1.21); Prothrombin Time (Patient) 13.3 Seconds (12.0-15.1)
[2020-07-07 09:30] LABS: Anion Gap 12.8 (5-19); Blood Urea Nitrogen 20 mg/dL (6-20); Carbon Dioxide 27 mmol/L (22-29); Chloride 100 mmol/L (98-107); Glomerular Filtration Rate 57.6 mL/min (90-130); Glucose 96 mg/dL (65-115); Osmolality Calculated 284 mOsm/kg (285-295); Potassium 3.8 mmol/L (3.5-5.1); Sodium 136 mmol/L (136-145)
--- NOTE | 2020-07-10 09:03 | PC.NURSE ---
Reschedule The patient was rescheduled for her [facility] from Tuesday07/11/20 to Tuesday07/15/20. The patient, scheduling, and Dr. Ferreira and his clinical staff were all notified via this nurse.
== END 2020-07-07 06:01 | disposition home or self-care (01) ==
LOC: LAB 06-15 11:06
PROVIDERS: Internal Medicine Cardiovascular Disease; PCP Nurse Practitioner Family; Visit Provider Internal Medicine Cardiovascular Disease
DX: Z01.818 Encounter for other preprocedural examination (principal); R94.39 Abnormal result of other cardiovascular function study
CPT/HCPCS: 36415; 80048; 85025; 85610

== ENCOUNTER → 2020-07-07 11:04 | Outpatient (BNVA) | payer MEDICAID, SELFPAY | PROVIDERS: PCP Nurse Practitioner Family; Visit Provider Internal Medicine Cardiovascular Disease | DX: Z01.818 Encounter for other preprocedural examination (principal); Z20.822 Contact with and (suspected) exposure to COVID-19 | CPT/HCPCS: 87635 ==

== ENCOUNTER 2020-07-25 07:17 | Outpatient (CLI) | payer MEDICAID, SELFPAY | END 2020-07-25 07:18 | disposition home or self-care (01) | LOC: ONCMED 07:18 | PROVIDERS: PCP Nurse Practitioner Family; Visit Provider Internal Medicine Hematology & Oncology | DX: Z45.2 Encounter for adjustment and management of vascular access device (principal) | CPT/HCPCS: 96523 ==

== ENCOUNTER 2021-07-14 20:00 | Outpatient (CLI) | payer MEDICAID, SELFPAY | END 2021-07-14 20:01 | disposition home or self-care (01) | LOC: SLEEP 07-15 06:54 | PROVIDERS: PCP Nurse Practitioner Family; Visit Provider Internal Medicine Pulmonary Disease | DX: G47.10 Hypersomnia, unspecified (principal); R06.83 Snoring; R53.83 Other fatigue; G47.33 Obstructive sleep apnea (adult) (pediatric) | CPT/HCPCS: 95811 ==

== ENCOUNTER → 2021-10-19 13:28 | Outpatient (BNVA) | payer MEDICAID, SELFPAY | PROVIDERS: PCP Nurse Practitioner Family; Visit Provider Internal Medicine Medical Oncology | DX: C50.919 Malignant neoplasm of unspecified site of unspecified female breast (principal) | CPT/HCPCS: 80053; 85025 ==

== ENCOUNTER → 2021-11-05 11:11 | Outpatient (BNVA) | payer MEDICAID, SELFPAY | PROVIDERS: PCP Nurse Practitioner Family; Visit Provider Internal Medicine Medical Oncology | DX: C50.919 Malignant neoplasm of unspecified site of unspecified female breast (principal) | CPT/HCPCS: 80053; 85025 ==

== ENCOUNTER → 2022-07-13 08:20 | Outpatient (BNVA) | payer MEDICAID, SELFPAY | PROVIDERS: PCP Nurse Practitioner Family; Visit Provider Internal Medicine Medical Oncology | DX: C50.919 Malignant neoplasm of unspecified site of unspecified female breast (principal) | CPT/HCPCS: 85025 ==

== ENCOUNTER 2023-05-17 11:14 | Outpatient (CLI) | payer MEDICAID, SELFPAY ==
--- NOTE | 2023-05-17 12:35 | XRR_ITS ---
PROCEDURE INFORMATION: Exam: XR Right Knee Exam date and time: 05/17/2023 12:42 PM Age: 57 years old Clinical indication: Pain; Knee; Right; Additional info: Leg pain/knee pain TECHNIQUE: Imaging protocol: Radiologic exam of the right knee. Views: 1 or 2 views. COMPARISON: US soft tissue/extremity 20326 11/22/2019 3:26 PM FINDINGS: Bones/joints: No fracture or dislocation. Moderate to severe osteoarthritic changes worst in the medial and patellofemoral compartments where there is joint space loss and osteophytosis. Soft tissues: No large joint effusion. XR/XR knee RT 1-2V [id number] IMPRESSION: At least moderate osteoarthritic degenerative changes worst in the medial compartment.
== END 2023-05-17 11:15 | disposition home or self-care (01) ==
LOC: RAD 11:19
PROVIDERS: PCP Nurse Practitioner Family; Visit Provider Emergency Medicine
DX: M17.11 Unilateral primary osteoarthritis, right knee (principal); M79.604 Pain in right leg
CPT/HCPCS: 73560; 80053; 82607; 83735; 85025

== ENCOUNTER 2023-05-17 12:29 | Outpatient (CLI) | payer MEDICAID, SELFPAY ==
--- NOTE | 2023-05-17 12:47 | XR_ITS ---
WS: [id number] XR chest 2V* [id number] REASON FOR EXAM: Breast cancer FINDINGS: The chest appears unchanged compared to 05/29/2019. Right chest chemotherapy infusion port with right internal jugular central venous catheter with the t ip just below the level of the tyra. Unchanged compared to 05/29/2019. Left mastectomy with axillary clips. Elevation of the right hemidiaphragm. No acute or subacute pulmonary parenchymal or pleural abnormality. No lung lesion is identified. Moderate degenerative spondylosis in the mid and lower thoracic spine. Old healed rib fracture on the right. No findings of metastatic disease. IMPRESSION: Stable chest as above.
== END 2023-05-17 12:30 | disposition home or self-care (01) ==
LOC: RAD 12:30
PROVIDERS: PCP Nurse Practitioner Family; Visit Provider Internal Medicine Medical Oncology
DX: C50.919 Malignant neoplasm of unspecified site of unspecified female breast (principal); Z90.12 Acquired absence of left breast and nipple; Z95.828 Presence of other vascular implants and grafts
CPT/HCPCS: 71046

== ENCOUNTER 2023-05-18 11:24 | Outpatient (CLI) | payer MEDICAID, SELFPAY ==
--- NOTE | 2023-05-18 11:45 | USCV_ITS ---
Samir Gerard Age: 57 Gender: F : 1965 Exam Date: 05/18/2023 12:02 Ordering Phys: Libertad Lyles MARINE FIRER Technologist: TIESHA Exam Location: Echo Lab Indication: RLE PAIN AND SWELLING HISTORY: Lower extremity swelling. Lower extremity pain. PROCEDURES: Venous duplex imaging was performed in only the right lower extremity. The following venous structures were evaluated: common femoral vein, profunda vein, proximal portion of the greater saphenous vein, superficial femoral vein, and the popliteal vein. In addition, the posterior tibial and peroneal trunk were evaluated. Serial compression, augmentation maneuvers, and spectral Doppler flow evaluation were performed. FINDINGS: No evidence of DVT seen in any vessel visualized at this time. Examination was technically limited due to body habitus. Right Bernal's cyst seen in Pop Fossa CONCLUSIONS No evidence of right lower extremity DVT. Popliteal cyst measuring 2.0 x 2.1 x 4.5cm César Vigil MD (Electronically Signed) Final Date: 18 May 2023 14:56 S
== END 2023-05-18 11:25 | disposition home or self-care (01) ==
LOC: RAD 11:24
PROVIDERS: PCP Nurse Practitioner Family; Visit Provider Nurse Practitioner Family
DX: M79.604 Pain in right leg (principal); M79.89 Other specified soft tissue disorders; M71.21 Synovial cyst of popliteal space [Baker], right knee
CPT/HCPCS: 93971

== ENCOUNTER → 2023-09-30 10:41 | Outpatient (BNVA) | payer MEDICAID, SELFPAY | PROVIDERS: PCP Nurse Practitioner Family; Visit Provider Student in an Organized Health Care Education/Training Program | DX: M17.11 Unilateral primary osteoarthritis, right knee | CPT/HCPCS: 20610; 73560; 73565; 99204; J3301 ==

== ENCOUNTER → 2023-12-27 07:57 | Outpatient (BNVA) | payer MEDICAID, SELFPAY | PROVIDERS: PCP Nurse Practitioner Family; Visit Provider Nurse Practitioner Family | DX: D48.5 Neoplasm of uncertain behavior of skin (principal); D22.39 Melanocytic nevi of other parts of face; L73.8 Other specified follicular disorders; L72.0 Epidermal cyst | CPT/HCPCS: 11102; 99203 ==

== ENCOUNTER → 2024-01-05 13:04 | Outpatient (BNVA) | payer MEDICAID, SELFPAY | PROVIDERS: PCP Nurse Practitioner Family; Visit Provider Physician Assistant | DX: M17.11 Unilateral primary osteoarthritis, right knee (principal) | CPT/HCPCS: 20610; 99213; J3301 ==

== ENCOUNTER → 2024-02-14 10:34 | Outpatient (BNVA) | payer MEDICARE, MEDICAID, SELFPAY | PROVIDERS: PCP Nurse Practitioner Family; Visit Provider Nurse Practitioner Family | DX: R74.8 Abnormal levels of other serum enzymes (principal) | CPT/HCPCS: 80053 ==

== ENCOUNTER → 2024-03-19 08:30 | Outpatient (BNVA) | payer MEDICARE, OTHER, MEDICAID, SELFPAY | PROVIDERS: PCP Nurse Practitioner Family; Visit Provider Nurse Practitioner Family | DX: D22.39 Melanocytic nevi of other parts of face (principal); L73.8 Other specified follicular disorders; Z08 Encounter for follow-up examination after completed treatment for malignant neoplasm; Z85.828 Personal history of other malignant neoplasm of skin; Z09 Encounter for follow-up examination after completed treatment for conditions other than malignant neoplasm | CPT/HCPCS: 99213 ==

== ENCOUNTER → 2024-04-17 13:25 | Outpatient (BNVA) | payer MEDICARE, OTHER, MEDICAID, SELFPAY | PROVIDERS: PCP Nurse Practitioner Family; Visit Provider Physician Assistant | DX: M17.11 Unilateral primary osteoarthritis, right knee (principal) | CPT/HCPCS: 20610; 99213; J3301 ==

== ENCOUNTER → 2024-07-17 13:36 | Outpatient (BNVA) | payer MEDICARE, MEDICAID, SELFPAY | PROVIDERS: PCP Nurse Practitioner Family; Visit Provider Physician Assistant | DX: M17.11 Unilateral primary osteoarthritis, right knee (principal); Z71.89 Other specified counseling | CPT/HCPCS: 20610; 99213; J3301; J9999 ==

== ENCOUNTER → 2024-07-18 07:35 | Outpatient (BNVA) | payer MEDICARE, MEDICAID, SELFPAY | PROVIDERS: PCP Nurse Practitioner Family; Visit Provider Nurse Practitioner Family | DX: L08.9 Local infection of the skin and subcutaneous tissue, unspecified (principal); D22.72 Melanocytic nevi of left lower limb, including hip; Z08 Encounter for follow-up examination after completed treatment for malignant neoplasm; Z85.828 Personal history of other malignant neoplasm of skin | CPT/HCPCS: 99213 ==

== ENCOUNTER → 2024-10-16 07:57 | Outpatient (BNVA) | payer MEDICARE, MEDICAID, SELFPAY | PROVIDERS: PCP Nurse Practitioner Family; Visit Provider Physician Assistant | DX: M17.11 Unilateral primary osteoarthritis, right knee (principal); Z71.89 Other specified counseling | CPT/HCPCS: 20610; 73560; 73565; 99213; J3301; J9999 ==

== ENCOUNTER 2024-12-21 10:35 | Outpatient (CLI) | payer OTHER, SELFPAY ==
--- NOTE | 2024-12-21 11:00 | USCV_ITS ---
Samir Gerard Age: 59 Gender: F : 1965 Exam Date: 12/21/2024 10:48 Ordering Phys: Tiffany Lagunas HAZARDOUS WASTE MATERIAL TECHNICIAN-Keenan Technologist: MONCHO Exam Location[place] [facility] [place]ication: Left leg swelling HISTORY: Lower extremity swelling. PROCEDURES: Venous duplex imaging was performed in only the left lower extremity. The following venous structures were evaluated: common femoral vein, profunda vein, proximal portion of the greater saphenous vein, superficial femoral vein, and the popliteal vein. In addition, the posterior tibial and peroneal trunk were evaluated. FINDINGS: Normal 2-D Doppler and augmentation and compressibility throughout the lower extremity venous structures. Additional imaging through the proximal calf veins also reveals no thrombus. Limited evaluation of the greater saphenous vein is patent with no thrombus. CONCLUSIONS No evidence of left lower extremity DVT. César Vigil MD (Electronically Signed) Final Date: 21 December 2024 13:40 S
== END 2024-12-21 10:36 | disposition home or self-care (01) ==
LOC: RAD 10:37
PROVIDERS: PCP Nurse Practitioner Family; Visit Provider Nurse Practitioner Family
DX: R06.00 Dyspnea, unspecified (principal); M79.89 Other specified soft tissue disorders
CPT/HCPCS: 93971

== ENCOUNTER → 2025-01-30 10:34 | Outpatient (BNVA) | payer OTHER, SELFPAY | PROVIDERS: PCP Nurse Practitioner Family; Visit Provider Nurse Practitioner Family | DX: R74.8 Abnormal levels of other serum enzymes (principal); R93.2 Abnormal findings on diagnostic imaging of liver and biliary tract; I11.0 Hypertensive heart disease with heart failure; I50.23 Acute on chronic systolic (congestive) heart failure; Z95.828 Presence of other vascular implants and grafts | CPT/HCPCS: 80048; 85025; 85610 ==